=== PATIENT | male | born 1950 | race Caucasian/White ===

== ENCOUNTER 2018-08-23 05:56 | Inpatient (IN) ==
[2018-08-23 06:30] LABS: Basophils # 0.1 10*3/uL (0.0-0.2); Basophils % 0.5 % (0.0-0.8); Eosinophils # 0.4 10*3/uL (0.0-0.87); Eosinophils % 3.4 % (0.00-10.9); Hematocrit 28.5 VOL% (42.0-52.0); Hemoglobin 9.2 GM/DL (14.0-18.0); Immature Granulocytes % 1.2 %; Immature Granulocytes Absolute 0.13 #; Lymphocytes # 1.3 10*3/uL (1.4-4.0); Lymphocytes % 12.9 % (21.2-54.2); Mean Corpuscular HGB Conc 32.3 GM/DL (32-36); Mean Corpuscular Hemoglobin 31 PG (27-34); Mean Corpuscular Volume 94.7 FL (87-102); Mean Platelet Volume 9.9 FL (9.6-12.0); Monocytes # 1.4 10*3/uL (0.11-0.8); Monocytes % 13.4 % (1.7-12.7); Neutrophils # 7.2 10*3/uL (1.4-7.4); Neutrophils % 68.6 % (38.7-73.9); Platelet Count 162 T/CUMM (130-400); Red Blood Count 3.01 MC/CUMM (3.8-5.5); White Blood Count 10.4 T/CUMM (4-12)
[2018-08-23 06:39] LABS: PT Patient Result 10.9 SECS
[2018-08-23 07:01] LABS: Bilirubin,Total 0.4 MG/DL (0.2-1.0); Calcium 9.3 MG/DL (8.5-10.1); Potassium 3.7 MMOL/L (3.5-5.1); Total Protein 6.6 G/DL (6.4-8.3)
[2018-08-23] MEDS ORDERED: ONDANSETRON 4 MG/2 ML VIAL IV PRN (07:46)
[2018-08-23] MEDS ORDERED: GLUCAGON 1 MG VIAL IM PRN (07:46)
[2018-08-23] MEDS ORDERED: DEXTROSE 50% 25 GM/50 ML VIAL IV PRN (07:46)
[2018-08-23] MEDS: ENOXAPARIN 80 MG/0.8 ML SYRINGE SUBCUT SCH (08:13)
[2018-08-23 09:10] LABS: Risk Ratio 6.18; Thyroid Stimulating Hormone 8.6 uIU/ml (0.358-3.74); VLDL CHOLESTEROL 53.6 MG/DL
[2018-08-23] MEDS ORDERED: NITROGLYCERIN SL 0.4 MG TABLET SL PRN (10:09)
[2018-08-23] MEDS: INSULIN REGULAR 100 UNIT/ML SUBCUT SCH ×3 (12:40→21:38)
[2018-08-23] MEDS: NITROGLYCERIN 2% OINT 1 INCH/GM PACK TOP SCH ×2 (13:43→17:10)
[2018-08-23] MEDS: MIDODRINE 2.5 MG TABLET PO SCH ×2 (15:51→21:41)
[2018-08-23] MEDS: INSULIN GLARGINE 100 UNIT/ML SUBCUT SCH (21:40)
[2018-08-23] MEDS: DOCUSATE SODIUM 100 MG CAPSULE PO SCH (21:41)
[2018-08-23] MEDS: GABAPENTIN 300 MG CAPSULE PO SCH ×2 (21:42)
[2018-08-23] MEDS: PANTOPRAZOLE 40 MG TABLET PO SCH (21:44)
[2018-08-23] MEDS: traZODone 50 MG TABLET PO SCH (21:44)
[2018-08-24] MEDS: NITROGLYCERIN 2% OINT 1 INCH/GM PACK TOP SCH ×4 (00:07→17:38)
[2018-08-24 04:04] LABS: Basophils % 0.4 % (0.0-0.8); Eosinophils # 0.3 10*3/uL (0.0-0.87); Eosinophils % 3.5 % (0.00-10.9); Immature Granulocytes % 0.8 %; Immature Granulocytes Absolute 0.08 #; Lymphocytes # 1.6 10*3/uL (1.4-4.0); Lymphocytes % 15.9 % (21.2-54.2); Mean Corpuscular HGB Conc 32.1 GM/DL (32-36); Mean Corpuscular Hemoglobin 30 PG (27-34); Mean Corpuscular Volume 93.6 FL (87-102); Mean Platelet Volume 10.7 FL (9.6-12.0); Monocytes # 1.1 10*3/uL (0.11-0.8); Monocytes % 11.6 % (1.7-12.7); Neutrophils # 6.6 10*3/uL (1.4-7.4); Neutrophils % 67.8 % (38.7-73.9); Platelet Count 159 T/CUMM (130-400); Red Blood Count 2.99 MC/CUMM (3.8-5.5); Red Cell Distribution Width 15.2 % (9.3-17.3); White Blood Count 9.7 T/CUMM (4-12)
[2018-08-24 04:20] LABS: Calcium 9.5 MG/DL (8.5-10.1); Osmolality,Calculated 303.1 MOS/KG (273-304); Potassium 3.8 MMOL/L (3.5-5.1)
[2018-08-24 04:22] LABS: % Iron Saturation 26.6 % (18-50)
[2018-08-24 04:23] LABS: Albumin 2.9 G/DL (3.4-5.0); Calcium 9.4 MG/DL (8.5-10.1); Osmolality,Calculated 305.8 MOS/KG (273-304); Potassium 3.9 MMOL/L (3.5-5.1)
[2018-08-24 04:29] LABS: Thyroid Stimulating Hormone 6.9 uIU/ml (0.358-3.74)
[2018-08-24] MEDS: INSULIN GLARGINE 100 UNIT/ML SUBCUT SCH ×2 (08:38→20:54)
[2018-08-24] MEDS: INSULIN REGULAR 100 UNIT/ML SUBCUT SCH ×4 (08:40→20:53)
[2018-08-24] MEDS: DOCUSATE SODIUM 100 MG CAPSULE PO SCH ×2 (08:43→20:54)
[2018-08-24] MEDS: PANTOPRAZOLE 40 MG TABLET PO SCH ×2 (08:44→20:56)
[2018-08-24] MEDS: GABAPENTIN 300 MG CAPSULE PO SCH ×2 (08:44→20:55)
[2018-08-24] MEDS ORDERED: MAGNESIUM SULF RIDER 2 GM in PREMIX 1 EACH IV PRN (09:04)
[2018-08-24] MEDS ORDERED: POTASSIUM CHLORIDE RIDER 10 MEQ in PREMIX 1 EACH IV PRN (09:04)
[2018-08-24] MEDS: MIDODRINE 2.5 MG TABLET PO SCH ×6 (10:19→23:32)
[2018-08-24] MEDS: ENOXAPARIN 80 MG/0.8 ML SYRINGE SUBCUT SCH (11:13)
[2018-08-24] MEDS: ASPIRIN EC 81 MG TABLET PO SCH (11:20)
[2018-08-24] MEDS: METOPROLOL TARTRATE 25 MG TABLET PO SCH ×2 (11:20→20:56)
[2018-08-24] MEDS: SEVELAMER CARBONATE 800 MG TABLET PO SCH ×2 (13:36→17:32)
[2018-08-24 14:30] LABS: Parathyroid Hormone Intact 1274.1 PG/ML (18.4-80.1)
[2018-08-24] MEDS: ZALEPLON 5 MG CAPSULE PO PRN (20:54)
[2018-08-24] MEDS: traZODone 50 MG TABLET PO SCH (20:55)
[2018-08-24] MEDS: ROSUVASTATIN 20 MG TABLET PO SCH (20:56)
[2018-08-25] MEDS: NITROGLYCERIN 2% OINT 1 INCH/GM PACK TOP SCH ×4 (01:48→18:40)
[2018-08-25] MEDS: traMADol 50 MG TABLET PO PRN (03:44)
[2018-08-25 05:11] LABS: Calcium 9.5 MG/DL (8.5-10.1); Osmolality,Calculated 300.2 MOS/KG (273-304); Potassium 3.6 MMOL/L (3.5-5.1)
[2018-08-25 05:15] LABS: Calcium 10.1 MG/DL (8.5-10.1); Osmolality,Calculated 298.4 MOS/KG (273-304); Potassium 3.4 MMOL/L (3.5-5.1)
[2018-08-25] MEDS ORDERED: POTASSIUM CHLORIDE 20 MEQ TABLET PO ONE (05:54)
[2018-08-25 06:22] LABS: Basophils # 0.1 10*3/uL (0.0-0.2); Basophils % 0.5 % (0.0-0.8); Eosinophils # 0.4 10*3/uL (0.0-0.87); Eosinophils % 3.5 % (0.00-10.9); Hematocrit 29.8 VOL% (42.0-52.0); Hemoglobin 9.6 GM/DL (14.0-18.0); Immature Granulocytes % 1.4 %; Immature Granulocytes Absolute 0.16 #; Lymphocytes # 1.9 10*3/uL (1.4-4.0); Lymphocytes % 16.4 % (21.2-54.2); Mean Corpuscular HGB Conc 32.2 GM/DL (32-36); Mean Corpuscular Hemoglobin 30 PG (27-34); Mean Platelet Volume 11.2 FL (9.6-12.0); Monocytes # 1.5 10*3/uL (0.11-0.8); Monocytes % 12.9 % (1.7-12.7); Neutrophils # 7.4 10*3/uL (1.4-7.4); Neutrophils % 65.3 % (38.7-73.9); Platelet Count 187 T/CUMM (130-400); Red Blood Count 3.17 MC/CUMM (3.8-5.5); Red Cell Distribution Width 15.4 % (9.3-17.3); White Blood Count 11.4 T/CUMM (4-12)
[2018-08-25] MEDS: INSULIN REGULAR 100 UNIT/ML SUBCUT SCH ×3 (10:13→18:33)
[2018-08-25] MEDS: INSULIN GLARGINE 100 UNIT/ML SUBCUT SCH (10:14)
[2018-08-25] MEDS: SEVELAMER CARBONATE 800 MG TABLET PO SCH ×3 (11:29→18:27)
[2018-08-25] MEDS: PANTOPRAZOLE 40 MG TABLET PO SCH (11:29)
[2018-08-25] MEDS: ASPIRIN EC 81 MG TABLET PO SCH (11:30)
[2018-08-25] MEDS: MIDODRINE 2.5 MG TABLET PO SCH ×2 (11:30→14:40)
[2018-08-25] MEDS: ENOXAPARIN 80 MG/0.8 ML SYRINGE SUBCUT SCH (11:30)
[2018-08-25] MEDS: DOCUSATE SODIUM 100 MG CAPSULE PO SCH (11:30)
[2018-08-25] MEDS: METOPROLOL TARTRATE 25 MG TABLET PO SCH (11:38)
[2018-08-25] MEDS ORDERED: LIDOCAINE 1% 20 ML VIAL ONE (11:44)
[2018-08-25] MEDS ORDERED: DIAZEPAM 5 MG TABLET PO ONE (12:00)
[2018-08-25] MEDS ORDERED: diphenhydrAMINE CAP 25 MG CAPSULE PO ONE (12:00)
[2018-08-25] MEDS ORDERED: fentaNYL 100 MCG/2 ML VIAL ONE (12:58)
[2018-08-25] MEDS ORDERED: MIDAZOLAM 2 MG/2 ML VIAL ONE (12:58)
[2018-08-25] MEDS ORDERED: methylPREDNISolone SOD SUC 125 MG/2 ML VIAL ONE (13:03)
[2018-08-25] MEDS ORDERED: PROMETHAZINE 25 MG/1 ML VIAL ONE (13:38)
[2018-08-25] MEDS ORDERED: TIROFIBAN 5,000 MCG/100 ML PREMIX IV ONE (13:41)
[2018-08-25] MEDS: TIROFIBAN 5,000 MCG/100 ML PREMIX IV SCH (13:49)
[2018-08-25] MEDS ORDERED: TICAGRELOR 90 MG TABLET ONE (14:25)
[2018-08-25] MEDS ORDERED: DIGOXIN 0.5 MG/2 ML AMP ONE (14:48)
[2018-08-25] MEDS ORDERED: DIGOXIN 0.5 MG/2 ML AMP IV ONE (14:58)
[2018-08-25] MEDS ORDERED: AMIODARONE INJ 150 MG in DEXTROSE 5% 100 ML IV ONE (14:58)
[2018-08-25] MEDS ORDERED: AMIODARONE 150 MG/3 ML VIAL ONE (14:59)
[2018-08-25] MEDS ORDERED: SODIUM CHLORIDE 0.9% 1,000 ML IV SCH (15:00)
[2018-08-25] MEDS ORDERED: AMIODARONE INJ 450 MG in DEXTROSE 5% 241 ML IV SCH ×2 (15:00→21:00)
[2018-08-25] MEDS: ZINC OXIDE 16% PASTE 57 GM TUBE TOP SCH (18:21)
[2018-08-25] MEDS: COLLAGENASE OINT 30 GM TUBE TOP SCH (18:22)
[2018-08-25] MEDS ORDERED: ALBUTEROL/IPRATROPIUM 3 ML NEB RESP TX PRN (20:29)
[2018-08-25 20:50] LABS: ABG Base Excess -4.3 MMOL/L (-2.5-2.5); ABG Oxygen Saturation 92.4 % (95-100); ABG PCO2 28.8 MM HG (35-48); ABG PH 7.438 (7.35-7.45); ABG PO2 68.4 MM HG (80-95); ABG TCO2 19.9 MMOL/L (23-27); Allen Test Positive; Pt O2 Delivery Device CPAP
[2018-08-26] MEDS: ROSUVASTATIN 20 MG TABLET PO SCH ×2 (00:14→21:15)
[2018-08-26] MEDS: traZODone 50 MG TABLET PO SCH ×2 (00:15→21:15)
[2018-08-26] MEDS: DOCUSATE SODIUM 100 MG CAPSULE PO SCH ×3 (00:15→21:16)
[2018-08-26] MEDS: PANTOPRAZOLE 40 MG TABLET PO SCH ×3 (00:15→21:17)
[2018-08-26] MEDS: GABAPENTIN 300 MG CAPSULE PO SCH ×2 (00:15→21:17)
[2018-08-26] MEDS: ZINC OXIDE 16% PASTE 57 GM TUBE TOP SCH ×3 (00:17→21:14)
[2018-08-26] MEDS: INSULIN GLARGINE 100 UNIT/ML SUBCUT SCH ×3 (00:18→21:14)
[2018-08-26] MEDS: NITROGLYCERIN 2% OINT 1 INCH/GM PACK TOP SCH ×4 (00:20→17:34)
[2018-08-26] MEDS: MIDODRINE 2.5 MG TABLET PO SCH ×4 (00:22→21:31)
[2018-08-26] MEDS: METOPROLOL TARTRATE 25 MG TABLET PO SCH ×3 (00:22→21:33)
[2018-08-26] MEDS: INSULIN REGULAR 100 UNIT/ML SUBCUT SCH ×5 (00:31→21:14)
[2018-08-26] MEDS: COLLAGENASE OINT 30 GM TUBE TOP SCH ×2 (04:18→16:00)
[2018-08-26 04:21] LABS: Basophils % 0.2 % (0.0-0.8); Eosinophils # 0.2 10*3/uL (0.0-0.87); Eosinophils % 1.2 % (0.00-10.9); Hematocrit 24.4 VOL% (42.0-52.0); Hemoglobin 7.7 GM/DL (14.0-18.0); Immature Granulocytes % 0.9 %; Immature Granulocytes Absolute 0.14 #; Lymphocytes # 1.4 10*3/uL (1.4-4.0); Mean Corpuscular HGB Conc 31.6 GM/DL (32-36); Mean Corpuscular Hemoglobin 30 PG (27-34); Mean Corpuscular Volume 94.6 FL (87-102); Monocytes # 1.6 10*3/uL (0.11-0.8); Monocytes % 10.6 % (1.7-12.7); Neutrophils # 12.1 10*3/uL (1.4-7.4); Neutrophils % 78.1 % (38.7-73.9); Platelet Count 170 T/CUMM (130-400); Red Blood Count 2.58 MC/CUMM (3.8-5.5); Red Cell Distribution Width 15.7 % (9.3-17.3); White Blood Count 15.5 T/CUMM (4-12)
[2018-08-26 04:44] LABS: Calcium 9.1 MG/DL (8.5-10.1); Osmolality,Calculated 297.7 MOS/KG (273-304); Potassium 4.3 MMOL/L (3.5-5.1)
[2018-08-26 04:46] LABS: Albumin 2.8 G/DL (3.4-5.0); Calcium 8.9 MG/DL (8.5-10.1); Osmolality,Calculated 298.7 MOS/KG (273-304); Potassium 4.3 MMOL/L (3.5-5.1)
[2018-08-26 04:47] LABS: Troponin I 21.4 NG/ML (0.00-0.045)
[2018-08-26] MEDS: TIROFIBAN 5,000 MCG/100 ML PREMIX IV SCH (07:06)
[2018-08-26 07:46] LABS: Hematocrit 24.9 VOL% (42.0-52.0); Hemoglobin 7.8 GM/DL (14.0-18.0)
[2018-08-26 08:27] LABS: CKMB % 17.2 %
[2018-08-26 08:30] LABS: Troponin I 16.7 NG/ML (0.00-0.045)
[2018-08-26] MEDS: ASPIRIN EC 81 MG TABLET PO SCH (10:43)
[2018-08-26] MEDS: SEVELAMER CARBONATE 800 MG TABLET PO SCH ×3 (10:43→17:34)
[2018-08-26 10:49] LABS: ABG Base Excess -3.6 MMOL/L (-2.5-2.5); ABG HCO3 19.2 MMOL/L (20-26); ABG Oxygen Saturation 86.5 % (95-100); ABG PCO2 26.9 MM HG (35-48); ABG PH 7.471 (7.35-7.45); ABG PO2 53.6 MM HG (80-95); Allen Test Positive; Pt O2 Delivery Device Other
[2018-08-26] MEDS: [UNRECOGNIZED DRUG - OTHER] PO SCH ×4 (11:14→21:31)
[2018-08-26] MEDS: [UNRECOGNIZED DRUG - OTHER] PO SCH ×4 (11:14→21:31)
[2018-08-26] MEDS: [UNRECOGNIZED DRUG - OTHER] PO SCH ×2 (11:15→17:36)
[2018-08-26] MEDS: PRORENAL PO SCH ×2 (11:15→17:36)
[2018-08-26] MEDS: MONTELUKAST 10 MG TABLET PO SCH ×2 (12:47→21:15)
[2018-08-26] MEDS: ALBUTEROL 1.25 MG/3 ML NEB RESP TX SCH ×2 (13:57→19:25)
[2018-08-26 14:35] LABS: ABG Base Excess -3.4 MMOL/L (-2.5-2.5); ABG HCO3 19.9 MMOL/L (20-26); ABG Oxygen Saturation 93.6 % (95-100); ABG PCO2 29.3 MM HG (35-48); ABG PO2 72.6 MM HG (80-95); ABG TCO2 20.8 MMOL/L (23-27)
[2018-08-27] MEDS: ALBUTEROL 1.25 MG/3 ML NEB RESP TX SCH ×4 (00:45→20:31)
[2018-08-27] MEDS: NITROGLYCERIN 2% OINT 1 INCH/GM PACK TOP SCH ×2 (00:46→06:10)
[2018-08-27] MEDS: ZALEPLON 5 MG CAPSULE PO PRN ×2 (03:45→22:01)
[2018-08-27 05:00] LABS: Basophils % 0.1 % (0.0-0.8); Eosinophils # 0.2 10*3/uL (0.0-0.87); Eosinophils % 1.7 % (0.00-10.9); Hematocrit 23.2 VOL% (42.0-52.0); Hemoglobin 7.3 GM/DL (14.0-18.0); Immature Granulocytes % 0.9 %; Immature Granulocytes Absolute 0.11 #; Lymphocytes # 1.1 10*3/uL (1.4-4.0); Lymphocytes % 9.2 % (21.2-54.2); Mean Corpuscular HGB Conc 31.5 GM/DL (32-36); Mean Corpuscular Hemoglobin 30 PG (27-34); Mean Corpuscular Volume 95.1 FL (87-102); Mean Platelet Volume 11.4 FL (9.6-12.0); Monocytes # 1.3 10*3/uL (0.11-0.8); Monocytes % 10.8 % (1.7-12.7); Neutrophils # 9.1 10*3/uL (1.4-7.4); Neutrophils % 77.3 % (38.7-73.9); Platelet Count 148 T/CUMM (130-400); Red Blood Count 2.44 MC/CUMM (3.8-5.5); White Blood Count 11.7 T/CUMM (4-12)
[2018-08-27 05:15] LABS: Calcium 9.3 MG/DL (8.5-10.1); Osmolality,Calculated 304.7 MOS/KG (273-304); Potassium 4.1 MMOL/L (3.5-5.1)
[2018-08-27] MEDS ORDERED: SODIUM CHLORIDE 0.9% 1,000 ML IV PRN (07:31)
[2018-08-27] MEDS ORDERED: MAGNESIUM SULF RIDER 4 GM in PREMIX 1 EACH IV PRN (08:17)
[2018-08-27] MEDS ORDERED: MAGNESIUM SULF RIDER 2 GM in PREMIX 1 EACH IV PRN (08:17)
[2018-08-27] MEDS: METOPROLOL TARTRATE 25 MG TABLET PO SCH ×2 (09:30→22:01)
[2018-08-27] MEDS: ASPIRIN EC 81 MG TABLET PO SCH (09:30)
[2018-08-27] MEDS: DOCUSATE SODIUM 100 MG CAPSULE PO SCH ×2 (09:30→22:00)
[2018-08-27] MEDS: ZINC OXIDE 16% PASTE 57 GM TUBE TOP SCH ×2 (09:30→22:02)
[2018-08-27] MEDS: MIDODRINE 2.5 MG TABLET PO SCH ×3 (09:30→22:03)
[2018-08-27] MEDS: SEVELAMER CARBONATE 800 MG TABLET PO SCH ×3 (09:30→17:56)
[2018-08-27] MEDS: INSULIN GLARGINE 100 UNIT/ML SUBCUT SCH ×2 (09:30→22:03)
[2018-08-27] MEDS: [UNRECOGNIZED DRUG - OTHER] PO SCH ×3 (09:31→22:04)
[2018-08-27] MEDS: PRORENAL PO SCH (09:31)
[2018-08-27] MEDS: [UNRECOGNIZED DRUG - OTHER] PO SCH (09:31)
[2018-08-27] MEDS: COLLAGENASE OINT 30 GM TUBE TOP SCH (09:31)
[2018-08-27] MEDS: MONTELUKAST 10 MG TABLET PO SCH ×2 (09:31→22:08)
[2018-08-27] MEDS: [UNRECOGNIZED DRUG - OTHER] PO SCH ×3 (09:31→22:03)
[2018-08-27] MEDS: INSULIN REGULAR 100 UNIT/ML SUBCUT SCH ×4 (09:31→22:02)
[2018-08-27] MEDS: PANTOPRAZOLE 40 MG TABLET PO SCH ×2 (09:31→22:03)
[2018-08-27] MEDS ORDERED: EPOETIN ALFA 10,000 UNIT/1 ML VIAL SUBCUT ONE (10:00)
[2018-08-27] MEDS: traMADol 50 MG TABLET PO PRN (10:54)
[2018-08-27] MEDS: CLOPIDOGREL 75 MG TABLET PO SCH (10:55)
[2018-08-27 14:05] LABS: Hematocrit 23.6 VOL% (42.0-52.0); Hemoglobin 7.7 GM/DL (14.0-18.0)
[2018-08-27] MEDS: ROSUVASTATIN 20 MG TABLET PO SCH (22:00)
[2018-08-27] MEDS: traZODone 50 MG TABLET PO SCH (22:00)
[2018-08-27] MEDS: GABAPENTIN 300 MG CAPSULE PO SCH (22:00)
[2018-08-28] MEDS: ALBUTEROL 1.25 MG/3 ML NEB RESP TX SCH ×5 (01:48→19:40)
[2018-08-28 03:49] LABS: ABG Base Excess -2.6 MMOL/L (-2.5-2.5); ABG HCO3 20.5 MMOL/L (20-26); ABG Oxygen Saturation 86.1 % (95-100); ABG PCO2 29.2 MM HG (35-48); ABG PH 7.465 (7.35-7.45); ABG PO2 54.1 MM HG (80-95); ABG TCO2 21.4 MMOL/L (23-27); Allen Test Positive; Pt O2 Delivery Device Other
[2018-08-28 04:51] LABS: Basophils % 0.2 % (0.0-0.8); Eosinophils # 0.3 10*3/uL (0.0-0.87); Eosinophils % 2.8 % (0.00-10.9); Hematocrit 24.3 VOL% (42.0-52.0); Hemoglobin 7.7 GM/DL (14.0-18.0); Immature Granulocytes % 0.6 %; Immature Granulocytes Absolute 0.06 #; Lymphocytes # 1.2 10*3/uL (1.4-4.0); Mean Corpuscular HGB Conc 31.7 GM/DL (32-36); Mean Corpuscular Hemoglobin 30 PG (27-34); Mean Corpuscular Volume 95.3 FL (87-102); Mean Platelet Volume 11.5 FL (9.6-12.0); Monocytes # 1.3 10*3/uL (0.11-0.8); Monocytes % 12.3 % (1.7-12.7); Neutrophils # 7.7 10*3/uL (1.4-7.4); Neutrophils % 73.1 % (38.7-73.9); Platelet Count 136 T/CUMM (130-400); Red Blood Count 2.55 MC/CUMM (3.8-5.5); Red Cell Distribution Width 15.9 % (9.3-17.3); White Blood Count 10.5 T/CUMM (4-12)
[2018-08-28 05:26] LABS: Osmolality,Calculated 298.1 MOS/KG (273-304); Potassium 4.3 MMOL/L (3.5-5.1)
[2018-08-28] MEDS: diphenhydrAMINE CAP 25 MG CAPSULE PO PRN ×2 (08:16→15:36)
[2018-08-28] MEDS: INSULIN REGULAR 100 UNIT/ML SUBCUT SCH ×4 (08:17→21:08)
[2018-08-28] MEDS: PANTOPRAZOLE 40 MG TABLET PO SCH ×2 (08:18→21:10)
[2018-08-28] MEDS: ZINC OXIDE 16% PASTE 57 GM TUBE TOP SCH (08:19)
[2018-08-28] MEDS: SEVELAMER CARBONATE 800 MG TABLET PO SCH ×3 (08:19→18:20)
[2018-08-28] MEDS: ASPIRIN EC 81 MG TABLET PO SCH (08:19)
[2018-08-28] MEDS: DOCUSATE SODIUM 100 MG CAPSULE PO SCH ×2 (08:19→21:10)
[2018-08-28] MEDS: [UNRECOGNIZED DRUG - OTHER] PO SCH ×3 (08:20→21:07)
[2018-08-28] MEDS: MONTELUKAST 10 MG TABLET PO SCH ×2 (08:20→21:10)
[2018-08-28] MEDS: CLOPIDOGREL 75 MG TABLET PO SCH (08:20)
[2018-08-28] MEDS: [UNRECOGNIZED DRUG - OTHER] PO SCH ×3 (08:20→21:08)
[2018-08-28] MEDS: MIDODRINE 2.5 MG TABLET PO SCH ×3 (08:20→21:09)
[2018-08-28] MEDS: INSULIN GLARGINE 100 UNIT/ML SUBCUT SCH (08:21)
[2018-08-28] MEDS: [UNRECOGNIZED DRUG - OTHER] PO SCH (08:21)
[2018-08-28] MEDS: PRORENAL PO SCH (08:21)
[2018-08-28] MEDS: METOPROLOL TARTRATE 25 MG TABLET PO SCH ×2 (08:22→21:11)
[2018-08-28 14:59] LABS: Ferritin 527.3 ng/ml (26-388)
[2018-08-28] MEDS ORDERED: INSULIN GLARGINE 100 UNIT/ML SUBCUT SCH (17:00)
[2018-08-28] MEDS: POLYETHYLENE GLYCOL POWDER 17 GM PACK PO SCH (18:17)
[2018-08-28] MEDS: methylPREDNISolone SOD SUC 40 MG/1 ML VIAL IV SCH (18:19)
[2018-08-28] MEDS: EPOETIN ALFA 10,000 UNIT/1 ML VIAL SUBCUT SCH (18:27)
[2018-08-28] MEDS: COLLAGENASE OINT 30 GM TUBE TOP SCH (18:28)
[2018-08-28] MEDS: ROSUVASTATIN 20 MG TABLET PO SCH (21:10)
[2018-08-28] MEDS: GABAPENTIN 300 MG CAPSULE PO SCH (21:11)
[2018-08-28] MEDS: traZODone 50 MG TABLET PO SCH (21:11)
[2018-08-29] MEDS: ALBUTEROL 1.25 MG/3 ML NEB RESP TX SCH ×3 (00:50→11:57)
[2018-08-29] MEDS: diphenhydrAMINE CAP 25 MG CAPSULE PO PRN (01:22)
[2018-08-29] MEDS: ZINC OXIDE 16% PASTE 57 GM TUBE TOP SCH ×3 (01:22→21:00)
[2018-08-29] MEDS: HydrOXYzine PAMOATE 25 MG CAPSULE PO PRN (02:03)
[2018-08-29] MEDS: methylPREDNISolone SOD SUC 40 MG/1 ML VIAL IV SCH (04:31)
[2018-08-29 06:00] LABS: Basophils % 0.2 % (0.0-0.8); Eosinophils % 0.3 % (0.00-10.9); Hemoglobin 8.4 GM/DL (14.0-18.0); Immature Granulocytes % 0.8 %; Immature Granulocytes Absolute 0.05 #; Lymphocytes # 0.5 10*3/uL (1.4-4.0); Lymphocytes % 8.5 % (21.2-54.2); Mean Corpuscular HGB Conc 32.3 GM/DL (32-36); Mean Corpuscular Hemoglobin 30 PG (27-34); Mean Corpuscular Volume 93.9 FL (87-102); Mean Platelet Volume 11.5 FL (9.6-12.0); Monocytes # 0.4 10*3/uL (0.11-0.8); Monocytes % 6.8 % (1.7-12.7); Neutrophils # 4.9 10*3/uL (1.4-7.4); Neutrophils % 83.4 % (38.7-73.9); Platelet Count 145 T/CUMM (130-400); Red Blood Count 2.77 MC/CUMM (3.8-5.5); Red Cell Distribution Width 15.8 % (9.3-17.3); White Blood Count 5.9 T/CUMM (4-12)
[2018-08-29 06:06] LABS: Calcium 9.5 MG/DL (8.5-10.1); Osmolality,Calculated 304.1 MOS/KG (273-304); Potassium 4.9 MMOL/L (3.5-5.1)
[2018-08-29] MEDS: ASPIRIN EC 81 MG TABLET PO SCH (09:27)
[2018-08-29] MEDS: MONTELUKAST 10 MG TABLET PO SCH ×2 (09:27→21:00)
[2018-08-29] MEDS: INSULIN GLARGINE 100 UNIT/ML SUBCUT SCH ×2 (09:28→23:43)
[2018-08-29] MEDS: MIDODRINE 2.5 MG TABLET PO SCH ×3 (09:28→23:44)
[2018-08-29] MEDS: SEVELAMER CARBONATE 800 MG TABLET PO SCH ×3 (09:28→17:51)
[2018-08-29] MEDS: METOPROLOL TARTRATE 25 MG TABLET PO SCH ×2 (09:28→21:00)
[2018-08-29] MEDS: INSULIN REGULAR 100 UNIT/ML SUBCUT SCH ×4 (09:29→21:00)
[2018-08-29] MEDS: PRORENAL PO SCH (09:30)
[2018-08-29] MEDS: [UNRECOGNIZED DRUG - OTHER] PO SCH ×3 (09:30→21:00)
[2018-08-29] MEDS: [UNRECOGNIZED DRUG - OTHER] PO SCH (09:30)
[2018-08-29] MEDS: [UNRECOGNIZED DRUG - OTHER] PO SCH ×3 (09:30→21:00)
[2018-08-29] MEDS: POLYETHYLENE GLYCOL POWDER 17 GM PACK PO SCH (09:30)
[2018-08-29] MEDS: DOCUSATE SODIUM 100 MG CAPSULE PO SCH ×2 (09:30→21:00)
[2018-08-29] MEDS: PANTOPRAZOLE 40 MG TABLET PO SCH ×2 (09:31→21:00)
[2018-08-29] MEDS: CLOPIDOGREL 75 MG TABLET PO SCH (09:31)
[2018-08-29] MEDS: COLLAGENASE OINT 30 GM TUBE TOP SCH (10:00)
[2018-08-29] MEDS ORDERED: INSULIN REGULAR 100 UNIT/ML IV ONE (15:03)
[2018-08-29] MEDS: ROSUVASTATIN 20 MG TABLET PO SCH (21:00)
[2018-08-29] MEDS: traZODone 50 MG TABLET PO SCH (21:00)
[2018-08-29] MEDS: GABAPENTIN 300 MG CAPSULE PO SCH (21:00)
[2018-08-30] MEDS: MIDODRINE 2.5 MG TABLET PO SCH ×4 (04:00→21:30)
[2018-08-30 04:24] LABS: Basophils % 0.1 % (0.0-0.8); Eosinophils # 0.3 10*3/uL (0.0-0.87); Eosinophils % 2.2 % (0.00-10.9); Hematocrit 27.1 VOL% (42.0-52.0); Hemoglobin 8.7 GM/DL (14.0-18.0); Immature Granulocytes % 0.5 %; Immature Granulocytes Absolute 0.07 #; Lymphocytes # 1.8 10*3/uL (1.4-4.0); Lymphocytes % 13.2 % (21.2-54.2); Mean Corpuscular HGB Conc 32.1 GM/DL (32-36); Mean Corpuscular Hemoglobin 30 PG (27-34); Mean Corpuscular Volume 94.1 FL (87-102); Mean Platelet Volume 11.6 FL (9.6-12.0); Monocytes # 1.6 10*3/uL (0.11-0.8); Monocytes % 12.2 % (1.7-12.7); Neutrophils # 9.6 10*3/uL (1.4-7.4); Neutrophils % 71.8 % (38.7-73.9); Platelet Count 192 T/CUMM (130-400); Red Blood Count 2.88 MC/CUMM (3.8-5.5); Red Cell Distribution Width 15.8 % (9.3-17.3); White Blood Count 13.4 T/CUMM (4-12)
[2018-08-30 05:07] LABS: Calcium 9.8 MG/DL (8.5-10.1); Osmolality,Calculated 299.7 MOS/KG (273-304); Potassium 3.9 MMOL/L (3.5-5.1)
[2018-08-30] MEDS: ALBUTEROL 1.25 MG/3 ML NEB RESP TX SCH (06:58)
[2018-08-30] MEDS: INSULIN REGULAR 100 UNIT/ML SUBCUT SCH ×4 (08:24→22:31)
[2018-08-30] MEDS: INSULIN GLARGINE 100 UNIT/ML SUBCUT SCH ×2 (08:24→22:32)
[2018-08-30] MEDS: DOCUSATE SODIUM 100 MG CAPSULE PO SCH ×2 (08:25→21:20)
[2018-08-30] MEDS: PANTOPRAZOLE 40 MG TABLET PO SCH ×2 (08:25→21:30)
[2018-08-30] MEDS: SEVELAMER CARBONATE 800 MG TABLET PO SCH ×3 (08:25→17:07)
[2018-08-30] MEDS: MONTELUKAST 10 MG TABLET PO SCH ×2 (08:25→21:30)
[2018-08-30] MEDS: [UNRECOGNIZED DRUG - OTHER] PO SCH ×3 (08:25→21:20)
[2018-08-30] MEDS: CLOPIDOGREL 75 MG TABLET PO SCH (08:25)
[2018-08-30] MEDS: ASPIRIN EC 81 MG TABLET PO SCH (08:25)
[2018-08-30] MEDS: METOPROLOL TARTRATE 25 MG TABLET PO SCH ×2 (08:25→22:32)
[2018-08-30] MEDS: [UNRECOGNIZED DRUG - OTHER] PO SCH ×3 (08:26→21:30)
[2018-08-30] MEDS: PRORENAL PO SCH (08:26)
[2018-08-30] MEDS: [UNRECOGNIZED DRUG - OTHER] PO SCH (08:26)
[2018-08-30] MEDS: POLYETHYLENE GLYCOL POWDER 17 GM PACK PO SCH (08:26)
[2018-08-30] MEDS: ZINC OXIDE 16% PASTE 57 GM TUBE TOP SCH ×2 (08:27→22:30)
[2018-08-30] MEDS: COLLAGENASE OINT 30 GM TUBE TOP SCH (08:27)
[2018-08-30] MEDS ORDERED: guaiFENesin 200 MG/10 ML UDCUP PO PRN (11:38)
[2018-08-30] MEDS: ROSUVASTATIN 20 MG TABLET PO SCH (21:20)
[2018-08-30] MEDS: GABAPENTIN 300 MG CAPSULE PO SCH (21:30)
[2018-08-30] MEDS: CHOLESTYRAMINE 4 GM PACK PO SCH (21:30)
[2018-08-30] MEDS: traZODone 50 MG TABLET PO SCH (22:31)
[2018-08-31 05:03] LABS: Basophils # 0.1 10*3/uL (0.0-0.2); Basophils % 0.5 % (0.0-0.8); Eosinophils # 0.7 10*3/uL (0.0-0.87); Eosinophils % 4.9 % (0.00-10.9); Hemoglobin 9.7 GM/DL (14.0-18.0); Immature Granulocytes % 0.8 %; Immature Granulocytes Absolute 0.12 #; Lymphocytes # 1.9 10*3/uL (1.4-4.0); Lymphocytes % 12.9 % (21.2-54.2); Mean Corpuscular HGB Conc 31.3 GM/DL (32-36); Mean Corpuscular Hemoglobin 30 PG (27-34); Mean Corpuscular Volume 96.6 FL (87-102); Mean Platelet Volume 11.2 FL (9.6-12.0); Monocytes # 1.6 10*3/uL (0.11-0.8); NRBC # 0.02 10*3/uL; Neutrophils # 10.2 10*3/uL (1.4-7.4); Neutrophils % 69.9 % (38.7-73.9); Platelet Count 242 T/CUMM (130-400); Red Blood Count 3.21 MC/CUMM (3.8-5.5); White Blood Count 14.6 T/CUMM (4-12)
[2018-08-31 05:31] LABS: Calcium 9.8 MG/DL (8.5-10.1); Osmolality,Calculated 303.5 MOS/KG (273-304); Potassium 4.4 MMOL/L (3.5-5.1)
[2018-08-31] MEDS ORDERED: traMADol 50 MG TABLET PO ONE (06:30)
[2018-08-31] MEDS: SEVELAMER CARBONATE 800 MG TABLET PO SCH ×3 (09:10→17:19)
[2018-08-31] MEDS: CLOPIDOGREL 75 MG TABLET PO SCH (09:10)
[2018-08-31] MEDS: ASPIRIN EC 81 MG TABLET PO SCH (09:10)
[2018-08-31] MEDS: MONTELUKAST 10 MG TABLET PO SCH ×2 (09:10→22:13)
[2018-08-31] MEDS: MIDODRINE 2.5 MG TABLET PO SCH ×4 (09:10→22:12)
[2018-08-31] MEDS: PANTOPRAZOLE 40 MG TABLET PO SCH ×2 (09:10→22:12)
[2018-08-31] MEDS: DOCUSATE SODIUM 100 MG CAPSULE PO SCH ×2 (09:11→22:04)
[2018-08-31] MEDS: METOPROLOL TARTRATE 25 MG TABLET PO SCH ×2 (09:11→22:11)
[2018-08-31] MEDS: POLYETHYLENE GLYCOL POWDER 17 GM PACK PO SCH (09:11)
[2018-08-31] MEDS: INSULIN REGULAR 100 UNIT/ML SUBCUT SCH ×4 (09:15→22:06)
[2018-08-31] MEDS: INSULIN GLARGINE 100 UNIT/ML SUBCUT SCH ×2 (09:19→22:11)
[2018-08-31] MEDS: PRORENAL PO SCH (10:26)
[2018-08-31] MEDS: [UNRECOGNIZED DRUG - OTHER] PO SCH (10:26)
[2018-08-31] MEDS: DICLOFENAC 1.3% PATCH 5/PACK TRANSDERM SCH (10:51)
[2018-08-31] MEDS: [UNRECOGNIZED DRUG - OTHER] PO SCH ×3 (10:54→22:12)
[2018-08-31] MEDS: [UNRECOGNIZED DRUG - OTHER] PO SCH ×3 (10:54→22:13)
[2018-08-31] MEDS: COLLAGENASE OINT 30 GM TUBE TOP SCH (10:55)
[2018-08-31] MEDS: EPOETIN ALFA 10,000 UNIT/1 ML VIAL SUBCUT SCH (11:29)
[2018-08-31] MEDS: ZINC OXIDE 16% PASTE 57 GM TUBE TOP SCH ×2 (15:37→22:04)
[2018-08-31] MEDS: ROSUVASTATIN 20 MG TABLET PO SCH (21:00)
[2018-08-31] MEDS: traZODone 50 MG TABLET PO SCH (21:00)
[2018-08-31] MEDS: GABAPENTIN 300 MG CAPSULE PO SCH (22:11)
[2018-08-31] MEDS: CHOLESTYRAMINE 4 GM PACK PO SCH (22:13)
[2018-09-01] MEDS: DICLOFENAC 1.3% PATCH 5/PACK TRANSDERM SCH ×3 (00:56→21:23)
[2018-09-01] MEDS ORDERED: traMADol 50 MG TABLET PO ONE (05:14)
[2018-09-01 05:37] LABS: Basophils % 0.3 % (0.0-0.8); Eosinophils # 0.6 10*3/uL (0.0-0.87); Eosinophils % 4.8 % (0.00-10.9); Hematocrit 26.8 VOL% (42.0-52.0); Hemoglobin 8.6 GM/DL (14.0-18.0); Immature Granulocytes % 1.1 %; Immature Granulocytes Absolute 0.14 #; Lymphocytes # 2.2 10*3/uL (1.4-4.0); Lymphocytes % 16.6 % (21.2-54.2); Mean Corpuscular HGB Conc 32.1 GM/DL (32-36); Mean Corpuscular Hemoglobin 30 PG (27-34); Mean Corpuscular Volume 94.4 FL (87-102); Mean Platelet Volume 11.4 FL (9.6-12.0); Monocytes # 1.7 10*3/uL (0.11-0.8); Monocytes % 12.6 % (1.7-12.7); NRBC # 0.04 10*3/uL; Neutrophils # 8.5 10*3/uL (1.4-7.4); Neutrophils % 64.6 % (38.7-73.9); Platelet Count 205 T/CUMM (130-400); Red Blood Count 2.84 MC/CUMM (3.8-5.5); Red Cell Distribution Width 15.9 % (9.3-17.3); White Blood Count 13.2 T/CUMM (4-12)
[2018-09-01 05:42] LABS: Calcium 9.7 MG/DL (8.5-10.1); Osmolality,Calculated 299.5 MOS/KG (273-304); Potassium 4.1 MMOL/L (3.5-5.1)
[2018-09-01 05:43] LABS: Calcium 9.5 MG/DL (8.5-10.1); Osmolality,Calculated 301.5 MOS/KG (273-304); Potassium 4.1 MMOL/L (3.5-5.1)
[2018-09-01] MEDS: MONTELUKAST 10 MG TABLET PO SCH ×2 (09:20→21:16)
[2018-09-01] MEDS: MIDODRINE 2.5 MG TABLET PO SCH (09:20)
[2018-09-01] MEDS: SEVELAMER CARBONATE 800 MG TABLET PO SCH ×3 (09:20→18:12)
[2018-09-01] MEDS: CLOPIDOGREL 75 MG TABLET PO SCH (09:20)
[2018-09-01] MEDS: PANTOPRAZOLE 40 MG TABLET PO SCH ×2 (09:20→21:16)
[2018-09-01] MEDS: DOCUSATE SODIUM 100 MG CAPSULE PO SCH ×2 (09:22→21:15)
[2018-09-01] MEDS: POLYETHYLENE GLYCOL POWDER 17 GM PACK PO SCH (09:23)
[2018-09-01] MEDS: METOPROLOL TARTRATE 25 MG TABLET PO SCH ×2 (09:23→22:36)
[2018-09-01] MEDS: INSULIN REGULAR 100 UNIT/ML SUBCUT SCH ×4 (09:23→21:24)
[2018-09-01] MEDS: INSULIN GLARGINE 100 UNIT/ML SUBCUT SCH ×2 (09:24→21:25)
[2018-09-01] MEDS: PRORENAL PO SCH (09:26)
[2018-09-01] MEDS: [UNRECOGNIZED DRUG - OTHER] PO SCH (09:26)
[2018-09-01] MEDS: [UNRECOGNIZED DRUG - OTHER] PO SCH ×3 (09:27→21:16)
[2018-09-01] MEDS: [UNRECOGNIZED DRUG - OTHER] PO SCH ×3 (09:27→21:17)
[2018-09-01] MEDS: ASPIRIN EC 81 MG TABLET PO SCH (09:28)
[2018-09-01] MEDS: traMADol 50 MG TABLET PO PRN (09:47)
[2018-09-01] MEDS: ZINC OXIDE 16% PASTE 57 GM TUBE TOP SCH ×2 (10:36→21:23)
[2018-09-01] MEDS: COLLAGENASE OINT 30 GM TUBE TOP SCH (10:39)
[2018-09-01] MEDS: PIPERACILLIN/TAZOBACTAM 3,375 MG in SODIUM CHLORIDE 0.9% 100 ML IV SCH ×2 (11:47→23:27)
[2018-09-01 13:14] LABS: ABG Base Excess -3.9 MMOL/L (-2.5-2.5); ABG HCO3 21.1 MMOL/L (20-26); ABG Oxygen Saturation 93.5 % (95-100); ABG PCO2 30.7 MM HG (35-48); ABG PH 7.417 (7.35-7.45); ABG PO2 68.6 MM HG (80-95)
[2018-09-01 13:42] LABS: Troponin I 0.325 NG/ML (0.00-0.045)
[2018-09-01] MEDS: MIDODRINE 5 MG TABLET PO SCH ×2 (14:31→21:16)
[2018-09-01] MEDS: ROSUVASTATIN 20 MG TABLET PO SCH (21:14)
[2018-09-01] MEDS: CHOLESTYRAMINE 4 GM PACK PO SCH (21:14)
[2018-09-01] MEDS: traZODone 50 MG TABLET PO SCH (21:15)
[2018-09-01] MEDS: GABAPENTIN 300 MG CAPSULE PO SCH (21:16)
[2018-09-02 05:30] LABS: Basophils % 0.3 % (0.0-0.8); Eosinophils # 0.6 10*3/uL (0.0-0.87); Eosinophils % 6.4 % (0.00-10.9); Hematocrit 27.5 VOL% (42.0-52.0); Hemoglobin 8.6 GM/DL (14.0-18.0); Immature Granulocytes % 1.6 %; Immature Granulocytes Absolute 0.15 #; Lymphocytes # 1.3 10*3/uL (1.4-4.0); Lymphocytes % 13.9 % (21.2-54.2); Mean Corpuscular HGB Conc 31.3 GM/DL (32-36); Mean Corpuscular Hemoglobin 30 PG (27-34); Mean Corpuscular Volume 95.8 FL (87-102); Mean Platelet Volume 11.2 FL (9.6-12.0); Monocytes # 1.1 10*3/uL (0.11-0.8); Monocytes % 11.6 % (1.7-12.7); NRBC # 0.03 10*3/uL; Neutrophils # 6.2 10*3/uL (1.4-7.4); Neutrophils % 66.2 % (38.7-73.9); Platelet Count 185 T/CUMM (130-400); Red Blood Count 2.87 MC/CUMM (3.8-5.5); Red Cell Distribution Width 16.1 % (9.3-17.3); White Blood Count 9.4 T/CUMM (4-12)
[2018-09-02 05:41] LABS: Calcium 9.2 MG/DL (8.5-10.1); Osmolality,Calculated 304.5 MOS/KG (273-304)
[2018-09-02 08:44] LABS: ABG HCO3 23.5 MMOL/L (20-26); ABG Oxygen Saturation 89.5 % (95-100); ABG PCO2 39.9 MM HG (35-48); ABG PH 7.386 (7.35-7.45); ABG PO2 60.5 MM HG (80-95); ABG TCO2 22.3 MMOL/L (23-27)
[2018-09-02] MEDS ORDERED: LIDOCAINE 100 MG/5 ML SYRINGE ONE (09:00)
[2018-09-02] MEDS: MIDODRINE 5 MG TABLET PO SCH ×3 (09:58→21:26)
[2018-09-02] MEDS: SEVELAMER CARBONATE 800 MG TABLET PO SCH ×3 (09:58→16:58)
[2018-09-02] MEDS: CLOPIDOGREL 75 MG TABLET PO SCH (09:58)
[2018-09-02] MEDS: MONTELUKAST 10 MG TABLET PO SCH ×2 (09:58→21:27)
[2018-09-02] MEDS: PANTOPRAZOLE 40 MG TABLET PO SCH ×2 (09:58→21:27)
[2018-09-02] MEDS: DOCUSATE SODIUM 100 MG CAPSULE PO SCH ×2 (09:58→21:23)
[2018-09-02] MEDS: METOPROLOL TARTRATE 25 MG TABLET PO SCH ×2 (09:58→21:25)
[2018-09-02] MEDS: ASPIRIN EC 81 MG TABLET PO SCH (09:58)
[2018-09-02] MEDS: POLYETHYLENE GLYCOL POWDER 17 GM PACK PO SCH (09:58)
[2018-09-02] MEDS: INSULIN REGULAR 100 UNIT/ML SUBCUT SCH ×4 (09:59→21:46)
[2018-09-02] MEDS: EPOETIN ALFA 10,000 UNIT/1 ML VIAL SUBCUT SCH (09:59)
[2018-09-02] MEDS: ZINC OXIDE 16% PASTE 57 GM TUBE TOP SCH ×2 (09:59→21:50)
[2018-09-02] MEDS: INSULIN GLARGINE 100 UNIT/ML SUBCUT SCH ×2 (09:59→21:47)
[2018-09-02] MEDS: [UNRECOGNIZED DRUG - OTHER] PO SCH ×3 (10:00→21:29)
[2018-09-02] MEDS: PRORENAL PO SCH (10:00)
[2018-09-02] MEDS: [UNRECOGNIZED DRUG - OTHER] PO SCH (10:00)
[2018-09-02] MEDS: [UNRECOGNIZED DRUG - OTHER] PO SCH ×3 (10:01→21:32)
[2018-09-02] MEDS: COLLAGENASE OINT 30 GM TUBE TOP SCH (10:03)
[2018-09-02] MEDS: PIPERACILLIN/TAZOBACTAM 3,375 MG in SODIUM CHLORIDE 0.9% 100 ML IV SCH ×2 (10:49→23:05)
[2018-09-02] MEDS: traMADol 50 MG TABLET PO PRN ×2 (11:06→19:45)
[2018-09-02] MEDS: DICLOFENAC 1.3% PATCH 5/PACK TRANSDERM SCH ×2 (11:07→21:51)
[2018-09-02] MEDS: traZODone 50 MG TABLET PO SCH (21:24)
[2018-09-02] MEDS: ROSUVASTATIN 20 MG TABLET PO SCH (21:24)
[2018-09-02] MEDS: GABAPENTIN 300 MG CAPSULE PO SCH (21:26)
[2018-09-02] MEDS: CHOLESTYRAMINE 4 GM PACK PO SCH (21:32)
[2018-09-03 04:55] LABS: ABG Base Excess -2.1 MMOL/L (-2.5-2.5); ABG HCO3 22.8 MMOL/L (20-26); ABG Oxygen Saturation 92.8 % (95-100); ABG PCO2 39.6 MM HG (35-48); ABG PH 7.379 (7.35-7.45); ABG PO2 71.2 MM HG (80-95); ABG TCO2 24.1 MMOL/L (23-27)
[2018-09-03 05:36] LABS: Basophils # 0.1 10*3/uL (0.0-0.2); Basophils % 0.5 % (0.0-0.8); Eosinophils # 0.7 10*3/uL (0.0-0.87); Eosinophils % 6.1 % (0.00-10.9); Hematocrit 26.9 VOL% (42.0-52.0); Hemoglobin 8.3 GM/DL (14.0-18.0); Immature Granulocytes % 1.6 %; Immature Granulocytes Absolute 0.18 #; Lymphocytes # 1.3 10*3/uL (1.4-4.0); Lymphocytes % 11.8 % (21.2-54.2); Mean Corpuscular HGB Conc 30.9 GM/DL (32-36); Mean Corpuscular Hemoglobin 30 PG (27-34); Mean Corpuscular Volume 96.4 FL (87-102); Mean Platelet Volume 10.8 FL (9.6-12.0); Monocytes # 1.4 10*3/uL (0.11-0.8); Monocytes % 12.9 % (1.7-12.7); NRBC # 0.02 10*3/uL; Neutrophils # 7.4 10*3/uL (1.4-7.4); Neutrophils % 67.1 % (38.7-73.9); Platelet Count 195 T/CUMM (130-400); Red Blood Count 2.79 MC/CUMM (3.8-5.5); Red Cell Distribution Width 16.1 % (9.3-17.3); White Blood Count 11.1 T/CUMM (4-12)
[2018-09-03 05:57] LABS: Calcium 9.1 MG/DL (8.5-10.1); Osmolality,Calculated 303.4 MOS/KG (273-304); Potassium 4.6 MMOL/L (3.5-5.1)
[2018-09-03 05:59] LABS: Albumin 2.4 G/DL (3.4-5.0); Calcium 8.8 MG/DL (8.5-10.1); Osmolality,Calculated 301.5 MOS/KG (273-304); Potassium 4.7 MMOL/L (3.5-5.1)
[2018-09-03] MEDS: [UNRECOGNIZED DRUG - OTHER] PO SCH (08:17)
[2018-09-03] MEDS: ASPIRIN EC 81 MG TABLET PO SCH (08:17)
[2018-09-03] MEDS: PANTOPRAZOLE 40 MG TABLET PO SCH ×2 (08:17→20:25)
[2018-09-03] MEDS: [UNRECOGNIZED DRUG - OTHER] PO SCH ×3 (08:17→20:29)
[2018-09-03] MEDS: CLOPIDOGREL 75 MG TABLET PO SCH (08:17)
[2018-09-03] MEDS: SEVELAMER CARBONATE 800 MG TABLET PO SCH ×3 (08:17→17:43)
[2018-09-03] MEDS: METOPROLOL TARTRATE 25 MG TABLET PO SCH ×2 (08:17→20:24)
[2018-09-03] MEDS: PRORENAL PO SCH (08:17)
[2018-09-03] MEDS: MONTELUKAST 10 MG TABLET PO SCH ×2 (08:17→20:25)
[2018-09-03] MEDS: MIDODRINE 5 MG TABLET PO SCH ×3 (08:17→20:24)
[2018-09-03] MEDS: DOCUSATE SODIUM 100 MG CAPSULE PO SCH ×2 (08:17→20:25)
[2018-09-03] MEDS: ZINC OXIDE 16% PASTE 57 GM TUBE TOP SCH ×2 (08:18→20:30)
[2018-09-03] MEDS: INSULIN REGULAR 100 UNIT/ML SUBCUT SCH ×4 (08:18→20:29)
[2018-09-03] MEDS: INSULIN GLARGINE 100 UNIT/ML SUBCUT SCH ×2 (08:18→20:30)
[2018-09-03] MEDS: POLYETHYLENE GLYCOL POWDER 17 GM PACK PO SCH (08:18)
[2018-09-03] MEDS: DICLOFENAC 1.3% PATCH 5/PACK TRANSDERM SCH ×2 (08:18→20:26)
[2018-09-03] MEDS: [UNRECOGNIZED DRUG - OTHER] PO SCH ×3 (08:19→20:29)
[2018-09-03] MEDS: COLLAGENASE OINT 30 GM TUBE TOP SCH (08:19)
[2018-09-03] MEDS: PIPERACILLIN/TAZOBACTAM 3,375 MG in SODIUM CHLORIDE 0.9% 100 ML IV SCH ×2 (10:26→23:13)
[2018-09-03] MEDS ORDERED: DEXAMETHASONE 10 MG/1 ML VIAL IV ONE (14:00)
[2018-09-03] MEDS ORDERED: ROPIVACAINE 0.5% 30 ML VIAL NERVEBLOCK ONE (14:00)
[2018-09-03] MEDS: traMADol 50 MG TABLET PO PRN (14:24)
[2018-09-03] MEDS: ROSUVASTATIN 20 MG TABLET PO SCH (20:24)
[2018-09-03] MEDS: GABAPENTIN 300 MG CAPSULE PO SCH (20:24)
[2018-09-03] MEDS: traZODone 50 MG TABLET PO SCH (20:25)
[2018-09-03] MEDS: CHOLESTYRAMINE 4 GM PACK PO SCH (20:29)
[2018-09-04 04:13] LABS: ABG Base Excess -2.2 MMOL/L (-2.5-2.5); ABG HCO3 22.5 MMOL/L (20-26); ABG Oxygen Saturation 90.9 % (95-100); ABG PCO2 36.1 MM HG (35-48); ABG PH 7.397 (7.35-7.45); ABG TCO2 20.8 MMOL/L (23-27); Allen Test Positive; Pt O2 Delivery Device Other
[2018-09-04 05:45] LABS: Basophils % 0.2 % (0.0-0.8); Eosinophils % 0.2 % (0.00-10.9); Hematocrit 26.9 VOL% (42.0-52.0); Hemoglobin 8.4 GM/DL (14.0-18.0); Immature Granulocytes % 1.6 %; Immature Granulocytes Absolute 0.19 #; Lymphocytes # 0.8 10*3/uL (1.4-4.0); Lymphocytes % 6.4 % (21.2-54.2); Mean Corpuscular HGB Conc 31.2 GM/DL (32-36); Mean Corpuscular Hemoglobin 30 PG (27-34); Mean Corpuscular Volume 97.1 FL (87-102); Mean Platelet Volume 10.8 FL (9.6-12.0); Monocytes # 0.6 10*3/uL (0.11-0.8); Monocytes % 5.5 % (1.7-12.7); NRBC # 0.02 10*3/uL; Neutrophils # 10.1 10*3/uL (1.4-7.4); Neutrophils % 86.1 % (38.7-73.9); Platelet Count 198 T/CUMM (130-400); Red Blood Count 2.77 MC/CUMM (3.8-5.5); Red Cell Distribution Width 15.9 % (9.3-17.3); White Blood Count 11.7 T/CUMM (4-12)
[2018-09-04 06:08] LABS: Calcium 9.5 MG/DL (8.5-10.1); Osmolality,Calculated 305.7 MOS/KG (273-304); Potassium 5.1 MMOL/L (3.5-5.1)
[2018-09-04 06:09] LABS: Albumin 2.8 G/DL (3.4-5.0); Calcium 9.1 MG/DL (8.5-10.1); Osmolality,Calculated 308.5 MOS/KG (273-304); Potassium 5.2 MMOL/L (3.5-5.1)
[2018-09-04] MEDS: INSULIN REGULAR 100 UNIT/ML SUBCUT SCH ×4 (08:45→21:16)
[2018-09-04] MEDS: MONTELUKAST 10 MG TABLET PO SCH ×2 (08:46→21:15)
[2018-09-04] MEDS: INSULIN GLARGINE 100 UNIT/ML SUBCUT SCH ×2 (08:46→21:16)
[2018-09-04] MEDS: SEVELAMER CARBONATE 800 MG TABLET PO SCH ×3 (08:46→16:06)
[2018-09-04] MEDS: MIDODRINE 5 MG TABLET PO SCH ×3 (08:46→21:56)
[2018-09-04] MEDS: CLOPIDOGREL 75 MG TABLET PO SCH (08:46)
[2018-09-04] MEDS: PANTOPRAZOLE 40 MG TABLET PO SCH ×2 (08:46→21:15)
[2018-09-04] MEDS: DOCUSATE SODIUM 100 MG CAPSULE PO SCH ×2 (08:47→21:15)
[2018-09-04] MEDS: ASPIRIN EC 81 MG TABLET PO SCH (08:47)
[2018-09-04] MEDS: POLYETHYLENE GLYCOL POWDER 17 GM PACK PO SCH (08:47)
[2018-09-04] MEDS: METOPROLOL TARTRATE 25 MG TABLET PO SCH ×2 (08:47→21:15)
[2018-09-04] MEDS: [UNRECOGNIZED DRUG - OTHER] PO SCH (08:49)
[2018-09-04] MEDS: [UNRECOGNIZED DRUG - OTHER] PO SCH ×3 (08:49→21:53)
[2018-09-04] MEDS: [UNRECOGNIZED DRUG - OTHER] PO SCH ×3 (08:49→21:53)
[2018-09-04] MEDS: PRORENAL PO SCH (08:49)
[2018-09-04] MEDS: methylPREDNISolone SOD SUC 40 MG/1 ML VIAL IV SCH ×2 (11:05→21:58)
[2018-09-04] MEDS: DICLOFENAC 1.3% PATCH 5/PACK TRANSDERM SCH ×2 (11:06→21:25)
[2018-09-04] MEDS: EPOETIN ALFA 10,000 UNIT/1 ML VIAL SUBCUT SCH (11:08)
[2018-09-04] MEDS: ZINC OXIDE 16% PASTE 57 GM TUBE TOP SCH ×2 (11:09→21:25)
[2018-09-04] MEDS: COLLAGENASE OINT 30 GM TUBE TOP SCH (11:09)
[2018-09-04] MEDS ORDERED: SODIUM POLYSTYRENE SULFATE 15 GM/60 ML BOTTLE PO ONE (11:29)
[2018-09-04] MEDS: INSULIN LISPRO 100 UNIT/ML SUBCUT SCH ×3 (12:08→21:17)
[2018-09-04] MEDS: PIPERACILLIN/TAZOBACTAM 3,375 MG in SODIUM CHLORIDE 0.9% 100 ML IV SCH ×2 (12:11→23:57)
[2018-09-04] MEDS: ROSUVASTATIN 20 MG TABLET PO SCH (21:14)
[2018-09-04] MEDS: traZODone 50 MG TABLET PO SCH (21:15)
[2018-09-04] MEDS: GABAPENTIN 300 MG CAPSULE PO SCH (21:16)
[2018-09-04] MEDS: CHOLESTYRAMINE 4 GM PACK PO SCH (21:18)
[2018-09-05 03:13] LABS: ABG Base Excess -1.8 MMOL/L (-2.5-2.5); ABG HCO3 22.9 MMOL/L (20-26); ABG Oxygen Saturation 96.9 % (95-100); ABG PCO2 38.6 MM HG (35-48); ABG PH 7.392 (7.35-7.45); ABG PO2 97.4 MM HG (80-95); ABG TCO2 24.1 MMOL/L (23-27); Allen Test Positive
[2018-09-05 05:50] LABS: Basophils % 0.2 % (0.0-0.8); Eosinophils # 0.1 10*3/uL (0.0-0.87); Eosinophils % 0.4 % (0.00-10.9); Hematocrit 26.1 VOL% (42.0-52.0); Hemoglobin 8.3 GM/DL (14.0-18.0); Immature Granulocytes % 2.7 %; Immature Granulocytes Absolute 0.33 #; Lymphocytes # 0.8 10*3/uL (1.4-4.0); Lymphocytes % 6.8 % (21.2-54.2); Mean Corpuscular HGB Conc 31.8 GM/DL (32-36); Mean Corpuscular Hemoglobin 31 PG (27-34); Mean Platelet Volume 10.9 FL (9.6-12.0); Monocytes # 0.7 10*3/uL (0.11-0.8); Monocytes % 5.9 % (1.7-12.7); NRBC # 0.03 10*3/uL; Neutrophils # 10.1 10*3/uL (1.4-7.4); Platelet Count 186 T/CUMM (130-400); Red Blood Count 2.72 MC/CUMM (3.8-5.5); Red Cell Distribution Width 16.2 % (9.3-17.3); White Blood Count 12.1 T/CUMM (4-12)
[2018-09-05 06:02] LABS: Albumin 2.7 G/DL (3.4-5.0); Calcium 8.9 MG/DL (8.5-10.1); Osmolality,Calculated 312.2 MOS/KG (273-304)
[2018-09-05] MEDS: MIDODRINE 5 MG TABLET PO SCH ×3 (09:48→21:32)
[2018-09-05] MEDS: POLYETHYLENE GLYCOL POWDER 17 GM PACK PO SCH (09:48)
[2018-09-05] MEDS: DOCUSATE SODIUM 100 MG CAPSULE PO SCH ×2 (09:48→21:35)
[2018-09-05] MEDS: CLOPIDOGREL 75 MG TABLET PO SCH (09:49)
[2018-09-05] MEDS: ASPIRIN EC 81 MG TABLET PO SCH (09:49)
[2018-09-05] MEDS: MONTELUKAST 10 MG TABLET PO SCH ×2 (09:49→21:32)
[2018-09-05] MEDS: oxyCODONE/ACETAMINOPHEN 5-325 MG TABLET PO PRN (09:49)
[2018-09-05] MEDS: SEVELAMER CARBONATE 800 MG TABLET PO SCH ×3 (09:49→16:47)
[2018-09-05] MEDS: METOPROLOL TARTRATE 25 MG TABLET PO SCH ×2 (09:51→21:33)
[2018-09-05] MEDS: INSULIN REGULAR 100 UNIT/ML SUBCUT SCH ×4 (09:51→21:34)
[2018-09-05] MEDS: PANTOPRAZOLE 40 MG TABLET PO SCH ×2 (09:51→21:33)
[2018-09-05] MEDS: ZINC OXIDE 16% PASTE 57 GM TUBE TOP SCH ×2 (09:52→21:37)
[2018-09-05] MEDS: INSULIN LISPRO 100 UNIT/ML SUBCUT SCH ×4 (09:52→21:33)
[2018-09-05] MEDS: methylPREDNISolone SOD SUC 40 MG/1 ML VIAL IV SCH (09:58)
[2018-09-05] MEDS: COLLAGENASE OINT 30 GM TUBE TOP SCH (10:01)
[2018-09-05] MEDS: INSULIN GLARGINE 100 UNIT/ML SUBCUT SCH ×2 (10:06→21:34)
[2018-09-05] MEDS: DICLOFENAC 1.3% PATCH 5/PACK TRANSDERM SCH (10:07)
[2018-09-05] MEDS: [UNRECOGNIZED DRUG - OTHER] PO SCH ×3 (10:08→21:29)
[2018-09-05] MEDS: [UNRECOGNIZED DRUG - OTHER] PO SCH ×3 (10:08→21:30)
[2018-09-05] MEDS: [UNRECOGNIZED DRUG - OTHER] PO SCH (10:09)
[2018-09-05] MEDS: PRORENAL PO SCH (10:09)
[2018-09-05] MEDS: PIPERACILLIN/TAZOBACTAM 3,375 MG in SODIUM CHLORIDE 0.9% 100 ML IV SCH (10:19)
[2018-09-05] MEDS: NYSTATIN 500,000 UNIT/5 ML UDCUP SWISH/SWAL SCH ×3 (12:22→21:33)
[2018-09-05] MEDS: LIDOCAINE 5% PATCH TRANSDERM SCH (14:38)
[2018-09-05] MEDS: ROSUVASTATIN 20 MG TABLET PO SCH (21:32)
[2018-09-05] MEDS: GABAPENTIN 300 MG CAPSULE PO SCH (21:33)
[2018-09-05] MEDS: traZODone 50 MG TABLET PO SCH (21:36)
[2018-09-05] MEDS: CHOLESTYRAMINE 4 GM PACK PO SCH (21:37)
[2018-09-06] MEDS: diphenhydrAMINE CAP 25 MG CAPSULE PO PRN
[2018-09-06] MEDS: oxyCODONE/ACETAMINOPHEN 5-325 MG TABLET PO PRN ×3 (00:01→15:45)
[2018-09-06] MEDS: PIPERACILLIN/TAZOBACTAM 3,375 MG in SODIUM CHLORIDE 0.9% 100 ML IV SCH ×3 (00:02→23:30)
[2018-09-06] MEDS ORDERED: MELATONIN 3 MG TABLET PO ONE (02:10)
[2018-09-06 03:53] LABS: ABG Base Excess -0.1 MMOL/L (-2.5-2.5); ABG HCO3 24.3 MMOL/L (20-26); ABG Oxygen Saturation 98.2 % (95-100); ABG PCO2 41.3 MM HG (35-48); ABG PH 7.387 (7.35-7.45); Allen Test Positive
[2018-09-06 04:27] LABS: Basophils # 0.1 10*3/uL (0.0-0.2); Basophils % 0.4 % (0.0-0.8); Eosinophils # 0.2 10*3/uL (0.0-0.87); Eosinophils % 1.3 % (0.00-10.9); Hematocrit 26.1 VOL% (42.0-52.0); Hemoglobin 8.2 GM/DL (14.0-18.0); Immature Granulocytes Absolute 0.54 #; Lymphocytes # 1.7 10*3/uL (1.4-4.0); Mean Corpuscular HGB Conc 31.4 GM/DL (32-36); Mean Corpuscular Hemoglobin 30 PG (27-34); Mean Platelet Volume 10.4 FL (9.6-12.0); Monocytes # 1.9 10*3/uL (0.11-0.8); Monocytes % 14.1 % (1.7-12.7); NRBC # 0.11 10*3/uL; Neutrophils % 67.2 % (38.7-73.9); Platelet Count 189 T/CUMM (130-400); Red Blood Count 2.72 MC/CUMM (3.8-5.5); Red Cell Distribution Width 16.2 % (9.3-17.3); White Blood Count 13.4 T/CUMM (4-12)
[2018-09-06 04:40] LABS: Albumin 2.4 G/DL (3.4-5.0); Calcium 8.7 MG/DL (8.5-10.1); Potassium 3.4 MMOL/L (3.5-5.1)
[2018-09-06 05:14] LABS: Band Neutrophils 1 % (0-10); Eosinophils 2 % (0-10); Lymphocytes 12 % (20-55); Myelocytes 1 %; Nucleated Red Blood Cells 1 (0-5); Segmented Neutrophils 68 % (50-85); Total Cells Counted 100
[2018-09-06 05:17] LABS: Hypochromasia 1+; Platelet Estimate Normal; Polychromasia Few
[2018-09-06 05:18] LABS: Anisocytosis 1+; Microcytosis 1+
[2018-09-06] MEDS: methylPREDNISolone SOD SUC 40 MG/1 ML VIAL IV SCH ×2 (06:16→21:07)
[2018-09-06] MEDS: INSULIN LISPRO 100 UNIT/ML SUBCUT SCH ×4 (08:52→21:10)
[2018-09-06] MEDS: INSULIN REGULAR 100 UNIT/ML SUBCUT SCH ×4 (08:52→21:10)
[2018-09-06] MEDS: NYSTATIN 500,000 UNIT/5 ML UDCUP SWISH/SWAL SCH ×4 (08:53→21:07)
[2018-09-06] MEDS: MONTELUKAST 10 MG TABLET PO SCH ×2 (08:53→21:06)
[2018-09-06] MEDS: MIDODRINE 5 MG TABLET PO SCH ×3 (08:54→21:03)
[2018-09-06] MEDS: DOCUSATE SODIUM 100 MG CAPSULE PO SCH ×2 (08:54→21:07)
[2018-09-06] MEDS: PANTOPRAZOLE 40 MG TABLET PO SCH ×2 (08:54→21:06)
[2018-09-06] MEDS: ASPIRIN EC 81 MG TABLET PO SCH (08:54)
[2018-09-06] MEDS: METOPROLOL TARTRATE 25 MG TABLET PO SCH ×2 (08:54→21:03)
[2018-09-06] MEDS: SEVELAMER CARBONATE 800 MG TABLET PO SCH ×3 (08:54→17:12)
[2018-09-06] MEDS: CLOPIDOGREL 75 MG TABLET PO SCH (08:55)
[2018-09-06] MEDS: ZINC OXIDE 16% PASTE 57 GM TUBE TOP SCH ×2 (08:55→21:17)
[2018-09-06] MEDS: POLYETHYLENE GLYCOL POWDER 17 GM PACK PO SCH (08:55)
[2018-09-06] MEDS: [UNRECOGNIZED DRUG - OTHER] PO SCH ×3 (08:56→21:17)
[2018-09-06] MEDS: PRORENAL PO SCH (08:56)
[2018-09-06] MEDS: [UNRECOGNIZED DRUG - OTHER] PO SCH (08:56)
[2018-09-06] MEDS: [UNRECOGNIZED DRUG - OTHER] PO SCH ×3 (08:56→21:17)
[2018-09-06] MEDS: INSULIN GLARGINE 100 UNIT/ML SUBCUT SCH ×2 (09:28→21:08)
[2018-09-06] MEDS: COLLAGENASE OINT 30 GM TUBE TOP SCH (09:28)
[2018-09-06] MEDS: LIDOCAINE 5% PATCH TRANSDERM SCH (15:46)
[2018-09-06] MEDS: GABAPENTIN 300 MG CAPSULE PO SCH (21:03)
[2018-09-06] MEDS: ROSUVASTATIN 20 MG TABLET PO SCH (21:06)
[2018-09-06] MEDS: traZODone 50 MG TABLET PO SCH (21:07)
[2018-09-06] MEDS: CHOLESTYRAMINE 4 GM PACK PO SCH (21:17)
[2018-09-07 04:14] LABS: ABG Base Excess 0.3 MMOL/L (-2.5-2.5); ABG HCO3 25.1 MMOL/L (20-26); ABG PH 7.404 (7.35-7.45); ABG PO2 79.3 MM HG (80-95); ABG TCO2 26.3 MMOL/L (23-27); Allen Test Positive
[2018-09-07 05:13] LABS: Basophils # 0.1 10*3/uL (0.0-0.2); Basophils % 0.6 % (0.0-0.8); Eosinophils # 0.2 10*3/uL (0.0-0.87); Eosinophils % 1.8 % (0.00-10.9); Hematocrit 30.6 VOL% (42.0-52.0); Immature Granulocytes % 4.6 %; Immature Granulocytes Absolute 0.57 #; Lymphocytes # 2.1 10*3/uL (1.4-4.0); Lymphocytes % 16.4 % (21.2-54.2); Mean Corpuscular HGB Conc 29.4 GM/DL (32-36); Mean Corpuscular Hemoglobin 30 PG (27-34); Mean Corpuscular Volume 102.7 FL (87-102); Mean Platelet Volume 10.8 FL (9.6-12.0); Monocytes # 1.6 10*3/uL (0.11-0.8); Monocytes % 12.4 % (1.7-12.7); NRBC # 0.12 10*3/uL; Neutrophils % 64.2 % (38.7-73.9); Platelet Count 171 T/CUMM (130-400); Red Blood Count 2.98 MC/CUMM (3.8-5.5); Red Cell Distribution Width 16.9 % (9.3-17.3); White Blood Count 12.5 T/CUMM (4-12)
[2018-09-07 06:12] LABS: Hypochromasia Slight; Lymphocytes 15 % (20-55); Metamyelocytes 1 %; Platelet Estimate Adequate; Polychromasia Few; Segmented Neutrophils 83 % (50-85); Total Cells Counted 100
[2018-09-07] MEDS: methylPREDNISolone SOD SUC 40 MG/1 ML VIAL IV SCH ×2 (06:22→18:51)
[2018-09-07] MEDS ORDERED: DEXAMETHASONE 10 MG/1 ML VIAL ONE (06:37)
[2018-09-07] MEDS ORDERED: DEXTROSE 50% 25 GM/50 ML VIAL IV ONE (07:18)
[2018-09-07] MEDS: SODIUM CHLORIDE 0.9% 250 ML IV SCH ×2 (07:18→20:49)
[2018-09-07] MEDS ORDERED: ETOMIDATE 40 MG/20 ML VIAL IV ONE (07:46)
[2018-09-07] MEDS ORDERED: PROPOFOL 200 MG/20 ML VIAL IV ONE (07:46)
[2018-09-07] MEDS: PANTOPRAZOLE 40 MG TABLET PO SCH ×2 (09:47→20:38)
[2018-09-07] MEDS: CLOPIDOGREL 75 MG TABLET PO SCH (09:48)
[2018-09-07] MEDS: SEVELAMER CARBONATE 800 MG TABLET PO SCH ×3 (09:48→17:19)
[2018-09-07] MEDS: MONTELUKAST 10 MG TABLET PO SCH ×2 (09:49→20:37)
[2018-09-07] MEDS: ASPIRIN EC 81 MG TABLET PO SCH (09:49)
[2018-09-07] MEDS: MIDODRINE 5 MG TABLET PO SCH ×3 (09:51→20:37)
[2018-09-07] MEDS: METOPROLOL TARTRATE 25 MG TABLET PO SCH ×2 (09:51→20:38)
[2018-09-07] MEDS: [UNRECOGNIZED DRUG - OTHER] PO SCH (09:52)
[2018-09-07] MEDS: PRORENAL PO SCH (09:52)
[2018-09-07] MEDS: [UNRECOGNIZED DRUG - OTHER] PO SCH ×3 (09:53→20:42)
[2018-09-07] MEDS: [UNRECOGNIZED DRUG - OTHER] PO SCH ×3 (09:53→20:42)
[2018-09-07] MEDS: INSULIN GLARGINE 100 UNIT/ML SUBCUT SCH ×2 (09:55→20:38)
[2018-09-07] MEDS: ZINC OXIDE 16% PASTE 57 GM TUBE TOP SCH ×2 (09:56→20:48)
[2018-09-07] MEDS: DOCUSATE SODIUM 100 MG CAPSULE PO SCH ×2 (09:56→20:49)
[2018-09-07] MEDS: EPOETIN ALFA 10,000 UNIT/1 ML VIAL SUBCUT SCH (09:57)
[2018-09-07] MEDS: NYSTATIN 500,000 UNIT/5 ML UDCUP SWISH/SWAL SCH ×4 (09:57→20:38)
[2018-09-07] MEDS: POLYETHYLENE GLYCOL POWDER 17 GM PACK PO SCH (09:58)
[2018-09-07] MEDS: INSULIN REGULAR 100 UNIT/ML SUBCUT SCH ×4 (10:11→20:38)
[2018-09-07] MEDS: INSULIN LISPRO 100 UNIT/ML SUBCUT SCH ×4 (10:12→20:38)
[2018-09-07] MEDS: PIPERACILLIN/TAZOBACTAM 3,375 MG in SODIUM CHLORIDE 0.9% 100 ML IV SCH ×2 (13:12→23:16)
[2018-09-07] MEDS: LIDOCAINE 5% PATCH TRANSDERM SCH (13:15)
[2018-09-07] MEDS: COLLAGENASE OINT 30 GM TUBE TOP SCH (14:03)
[2018-09-07] MEDS: GABAPENTIN 300 MG CAPSULE PO SCH (20:37)
[2018-09-07] MEDS: ROSUVASTATIN 20 MG TABLET PO SCH (20:37)
[2018-09-07] MEDS: traZODone 50 MG TABLET PO SCH (20:37)
[2018-09-07] MEDS: CHOLESTYRAMINE 4 GM PACK PO SCH (20:39)
[2018-09-07] MEDS: oxyCODONE/ACETAMINOPHEN 5-325 MG TABLET PO PRN (20:43)
[2018-09-07] MEDS: traMADol 50 MG TABLET PO PRN (23:18)
[2018-09-08] MEDS: HydrOXYzine PAMOATE 25 MG CAPSULE PO PRN (01:02)
[2018-09-08 05:00] LABS: Basophils % 0.2 % (0.0-0.8); Eosinophils % 0.1 % (0.00-10.9); Hematocrit 26.3 VOL% (42.0-52.0); Hemoglobin 8.2 GM/DL (14.0-18.0); Immature Granulocytes % 4.4 %; Immature Granulocytes Absolute 0.55 #; Lymphocytes % 7.6 % (21.2-54.2); Mean Corpuscular HGB Conc 31.2 GM/DL (32-36); Mean Corpuscular Hemoglobin 30 PG (27-34); Mean Corpuscular Volume 96.3 FL (87-102); Mean Platelet Volume 10.8 FL (9.6-12.0); Monocytes # 1.2 10*3/uL (0.11-0.8); Monocytes % 9.8 % (1.7-12.7); NRBC # 0.07 10*3/uL; Neutrophils # 9.8 10*3/uL (1.4-7.4); Neutrophils % 77.9 % (38.7-73.9); Platelet Count 161 T/CUMM (130-400); Red Blood Count 2.73 MC/CUMM (3.8-5.5); Red Cell Distribution Width 16.7 % (9.3-17.3); White Blood Count 12.6 T/CUMM (4-12)
[2018-09-08 05:26] LABS: Calcium 8.9 MG/DL (8.5-10.1); Lymphocytes 5 % (20-55); Osmolality,Calculated 310.2 MOS/KG (273-304); Potassium 3.3 MMOL/L (3.5-5.1); Segmented Neutrophils 86 % (50-85); Total Cells Counted 100
[2018-09-08 05:27] LABS: Platelet Estimate Normal
[2018-09-08 05:28] LABS: Albumin 2.6 G/DL (3.4-5.0); Potassium 3.4 MMOL/L (3.5-5.1)
[2018-09-08] MEDS: methylPREDNISolone SOD SUC 40 MG/1 ML VIAL IV SCH (06:28)
[2018-09-08] MEDS ORDERED: POTASSIUM CHLORIDE 20 MEQ TABLET PO ONE (08:55)
[2018-09-08] MEDS: MONTELUKAST 10 MG TABLET PO SCH (08:58)
[2018-09-08] MEDS: CLOPIDOGREL 75 MG TABLET PO SCH (08:58)
[2018-09-08] MEDS: SEVELAMER CARBONATE 800 MG TABLET PO SCH ×2 (08:58→12:38)
[2018-09-08] MEDS: MIDODRINE 5 MG TABLET PO SCH (08:58)
[2018-09-08] MEDS: NYSTATIN 500,000 UNIT/5 ML UDCUP SWISH/SWAL SCH ×2 (08:58→12:38)
[2018-09-08] MEDS: PANTOPRAZOLE 40 MG TABLET PO SCH (08:59)
[2018-09-08] MEDS: ASPIRIN EC 81 MG TABLET PO SCH (08:59)
[2018-09-08] MEDS: METOPROLOL TARTRATE 25 MG TABLET PO SCH (08:59)
[2018-09-08] MEDS: PRORENAL PO SCH (09:00)
[2018-09-08] MEDS: [UNRECOGNIZED DRUG - OTHER] PO SCH (09:00)
[2018-09-08] MEDS: [UNRECOGNIZED DRUG - OTHER] PO SCH (09:01)
[2018-09-08] MEDS: [UNRECOGNIZED DRUG - OTHER] PO SCH (09:01)
[2018-09-08] MEDS: COLLAGENASE OINT 30 GM TUBE TOP SCH (09:02)
[2018-09-08] MEDS: ZINC OXIDE 16% PASTE 57 GM TUBE TOP SCH (09:02)
[2018-09-08] MEDS: INSULIN GLARGINE 100 UNIT/ML SUBCUT SCH (09:02)
[2018-09-08] MEDS: POLYETHYLENE GLYCOL POWDER 17 GM PACK PO SCH (09:02)
[2018-09-08] MEDS: DOCUSATE SODIUM 100 MG CAPSULE PO SCH (09:02)
[2018-09-08] MEDS: INSULIN LISPRO 100 UNIT/ML SUBCUT SCH ×2 (09:04→12:42)
[2018-09-08] MEDS: SODIUM CHLORIDE 0.9% 250 ML IV SCH (09:04)
[2018-09-08] MEDS: INSULIN REGULAR 100 UNIT/ML SUBCUT SCH ×2 (09:04→12:40)
[2018-09-08 11:25] VITALS: BP 128/67
[2018-09-08] MEDS: PIPERACILLIN/TAZOBACTAM 3,375 MG in SODIUM CHLORIDE 0.9% 100 ML IV SCH (13:10)
[2018-09-08] MEDS: LIDOCAINE 5% PATCH TRANSDERM SCH (15:21)
== END 2018-09-08 13:20 | disposition home or self-care (01) | DRG 250 ==
LOC: N.ED 05:56 → N.EDINP 05:56 → SUATTDRO 07:46 → N.EDINP 08:39 → N.TELES 09:28 → N.CC 08-25 17:07 → SUATTDRO 08-26 09:30 → N.TELEN 08-29 20:07 → N.ICU 09-01 12:33 → N.5E 09-03 16:28
PROVIDERS: ADMIT Hospitalist; ATTEND Hospitalist

== ENCOUNTER 2019-02-25 11:22 | Inpatient (IN) ==
[2019-02-25] MEDS ORDERED: POTASSIUM CHLORIDE RIDER 10 MEQ in PREMIX 1 EACH IV PRN (12:11)
[2019-02-25] MEDS ORDERED: ASPIRIN 325 MG TABLET PO ONE (12:11)
[2019-02-25] MEDS ORDERED: MAGNESIUM SULF RIDER 2 GM in PREMIX 1 EACH IV PRN (12:11)
[2019-02-25] MEDS ORDERED: diphenhydrAMINE CAP 25 MG CAPSULE PO ONE (12:11)
[2019-02-25] MEDS ORDERED: DIAZEPAM 5 MG TABLET PO ONE (12:11)
[2019-02-25] MEDS ORDERED: predniSONE 20 MG TABLET PO ONE (12:13)
[2019-02-25] MEDS ORDERED: DIAZEPAM 5 MG TABLET ONE (12:22)
[2019-02-25] MEDS ORDERED: ASPIRIN 325 MG TABLET ONE (12:22)
[2019-02-25] MEDS ORDERED: diphenhydrAMINE CAP 25 MG CAPSULE ONE (12:23)
[2019-02-25 12:31] LABS: Calcium 10.1 MG/DL (8.5-10.1); Osmolality,Calculated 287.2 MOS/KG (273-304)
[2019-02-25 12:44] LABS: Basophils % 0.3 % (0.0-0.8); Eosinophils # 0.3 10*3/uL (0.0-0.87); Hematocrit 41.4 VOL% (42.0-52.0); Hemoglobin 13.6 GM/DL (14.0-18.0); Immature Granulocytes % 0.8 %; Immature Granulocytes Absolute 0.06 #; Lymphocytes # 0.7 10*3/uL (1.4-4.0); Lymphocytes % 9.3 % (21.2-54.2); Mean Corpuscular HGB Conc 32.9 GM/DL (32-36); Mean Corpuscular Volume 102.2 FL (87-102); Mean Platelet Volume 10.4 FL (9.6-12.0); Monocytes % 11.7 % (1.7-12.7); Neutrophils % 73.9 % (38.7-73.9); Platelet Count 110 T/CUMM (130-400); Red Blood Count 4.05 MC/CUMM (3.8-5.5); Red Cell Distribution Width 14.6 % (9.3-17.3); White Blood Count 7.2 T/CUMM (4-12)
[2019-02-25 12:49] LABS: INR 1.1; PT Patient Result 11.4 SECS (9.6-12.2)
[2019-02-25] MEDS: SODIUM CHLORIDE 0.9% 1,000 ML IV SCH ×2 (13:03→18:09)
[2019-02-25] MEDS ORDERED: HYDROmorphone 2 MG/1 ML VIAL ONE (14:36)
[2019-02-25] MEDS ORDERED: LIDOCAINE 1% 20 ML VIAL ONE (14:36)
[2019-02-25] MEDS ORDERED: MIDAZOLAM 2 MG/2 ML VIAL ONE ×2 (14:37→15:50)
[2019-02-25] MEDS ORDERED: methylPREDNISolone SOD SUC 125 MG/2 ML VIAL ONE (15:03)
[2019-02-25] MEDS ORDERED: diphenhydrAMINE 50 MG/1 ML VIAL ONE (15:14)
[2019-02-25] MEDS ORDERED: HEPARIN 5,000 UNIT/1 ML VIAL ONE (15:16)
[2019-02-25] MEDS ORDERED: METOPROLOL TARTRATE 5 MG/5 ML VIAL IV ONE ×3 (15:50→17:22)
[2019-02-25] MEDS ORDERED: NITROGLYCERIN SL 0.4 MG TABLET SL PRN (16:48)
[2019-02-25] MEDS ORDERED: CLOPIDOGREL 300 MG TABLET ONE (16:49)
[2019-02-25] MEDS ORDERED: dilTIAZem Drip 125 MG/125 ML PREMIX IV SCH (18:00)
[2019-02-25] MEDS: SEVELAMER CARBONATE 800 MG TABLET PO SCH (18:07)
[2019-02-25] MEDS: METOPROLOL TARTRATE 5 MG/5 ML VIAL IV SCH ×2 (18:08→18:09)
[2019-02-25] MEDS: DOCUSATE SODIUM 100 MG CAPSULE PO SCH (21:58)
[2019-02-25] MEDS: ASPIRIN EC 81 MG TABLET PO SCH (21:58)
[2019-02-25] MEDS: INSULIN LISPRO 100 UNIT/ML SUBCUT SCH ×2 (21:58→21:59)
[2019-02-25] MEDS: FAMOTIDINE 20 MG TABLET PO SCH (21:59)
[2019-02-25] MEDS: INSULIN ASPART PROTAMINE/ASPART 70/30 100 UNIT/ML SUBCUT SCH (21:59)
[2019-02-25] MEDS: RIVAROXABAN 2.5 MG TABLET PO SCH (21:59)
[2019-02-25] MEDS: GABAPENTIN 300 MG CAPSULE PO SCH (21:59)
[2019-02-25] MEDS: SILVER SULFADIAZINE 1% CREAM 25 GM TUBE TOP SCH (22:01)
[2019-02-26] MEDS ORDERED: SODIUM CHLORIDE 0.9% 500 ML IV ONE (01:43)
[2019-02-26 02:13] LABS: Hematocrit 27.1 VOL% (42.0-52.0); Hemoglobin 8.8 GM/DL (14.0-18.0)
[2019-02-26 02:40] LABS: Calcium 9.8 MG/DL (8.5-10.1); Osmolality,Calculated 292.7 MOS/KG (273-304)
[2019-02-26 04:32] LABS: Basophils % 0.2 % (0.0-0.8); Hematocrit 25.5 VOL% (42.0-52.0); Hemoglobin 8.2 GM/DL (14.0-18.0); Immature Granulocytes % 0.9 %; Lymphocytes # 0.6 10*3/uL (1.4-4.0); Lymphocytes % 5.4 % (21.2-54.2); Mean Corpuscular HGB Conc 32.2 GM/DL (32-36); Mean Corpuscular Volume 105.4 FL (87-102); Mean Platelet Volume 10.7 FL (9.6-12.0); Monocytes % 7.2 % (1.7-12.7); Neutrophils % 86.3 % (38.7-73.9); Platelet Count 130 T/CUMM (130-400); Red Blood Count 2.42 MC/CUMM (3.8-5.5); Red Cell Distribution Width 14.5 % (9.3-17.3); White Blood Count 11.3 T/CUMM (4-12)
[2019-02-26] MEDS: CLOPIDOGREL 75 MG TABLET PO SCH (09:12)
[2019-02-26] MEDS: GABAPENTIN 300 MG CAPSULE PO SCH ×2 (09:12→21:28)
[2019-02-26] MEDS: DOCUSATE SODIUM 100 MG CAPSULE PO SCH ×2 (09:12→20:17)
[2019-02-26] MEDS: FAMOTIDINE 20 MG TABLET PO SCH ×2 (09:13→20:17)
[2019-02-26] MEDS: RIVAROXABAN 2.5 MG TABLET PO SCH ×2 (09:13→20:20)
[2019-02-26] MEDS: INSULIN ASPART PROTAMINE/ASPART 70/30 100 UNIT/ML SUBCUT SCH ×2 (09:13→21:28)
[2019-02-26] MEDS: INSULIN LISPRO 100 UNIT/ML SUBCUT SCH ×4 (09:14→20:19)
[2019-02-26] MEDS: SEVELAMER CARBONATE 800 MG TABLET PO SCH ×3 (09:20→18:10)
[2019-02-26] MEDS: NEPHRO VITE PO SCH (10:21)
[2019-02-26] MEDS: MIDODRINE 5 MG TABLET PO SCH ×2 (12:38→20:17)
[2019-02-26] MEDS ORDERED: SODIUM CHLORIDE 0.9% 1,000 ML IV PRN (16:48)
[2019-02-26] MEDS: EPOETIN ALFA 10,000 UNIT/1 ML VIAL SUBCUT SCH (18:10)
[2019-02-26] MEDS: ASPIRIN EC 81 MG TABLET PO SCH (20:17)
[2019-02-26] MEDS ORDERED: SODIUM CHLORIDE 0.9% 250 ML IV PRN (20:56)
[2019-02-26] MEDS: SILVER SULFADIAZINE 1% CREAM 25 GM TUBE TOP SCH (21:43)
[2019-02-27 03:52] LABS: Hematocrit 27.6 VOL% (42.0-52.0)
[2019-02-27] MEDS: INSULIN LISPRO 100 UNIT/ML SUBCUT SCH ×4 (08:01→21:55)
[2019-02-27] MEDS: SEVELAMER CARBONATE 800 MG TABLET PO SCH ×3 (08:04→17:19)
[2019-02-27] MEDS: INSULIN ASPART PROTAMINE/ASPART 70/30 100 UNIT/ML SUBCUT SCH ×2 (08:58→21:55)
[2019-02-27] MEDS: DOCUSATE SODIUM 100 MG CAPSULE PO SCH ×2 (08:59→21:51)
[2019-02-27] MEDS: FAMOTIDINE 20 MG TABLET PO SCH ×2 (08:59→21:48)
[2019-02-27] MEDS: CLOPIDOGREL 75 MG TABLET PO SCH (08:59)
[2019-02-27] MEDS: RIVAROXABAN 2.5 MG TABLET PO SCH ×2 (08:59→21:51)
[2019-02-27] MEDS: MIDODRINE 5 MG TABLET PO SCH ×2 (08:59→21:51)
[2019-02-27] MEDS: GABAPENTIN 300 MG CAPSULE PO SCH ×2 (09:01→21:51)
[2019-02-27] MEDS: NEPHRO VITE PO SCH (09:01)
[2019-02-27] MEDS: diphenhydrAMINE CAP 25 MG CAPSULE PO PRN ×2 (14:24→21:50)
[2019-02-27] MEDS: oxyCODONE/ACETAMINOPHEN 5-325 MG TABLET PO PRN (21:49)
[2019-02-27] MEDS: ASPIRIN EC 81 MG TABLET PO SCH (21:51)
[2019-02-28] MEDS: SILVER SULFADIAZINE 1% CREAM 25 GM TUBE TOP SCH ×2 (00:26→22:02)
[2019-02-28] MEDS: diphenhydrAMINE CAP 25 MG CAPSULE PO PRN (04:15)
[2019-02-28] MEDS: oxyCODONE/ACETAMINOPHEN 5-325 MG TABLET PO PRN (04:19)
[2019-02-28] MEDS: ONDANSETRON 4 MG/2 ML VIAL IV PRN (05:10)
[2019-02-28] MEDS: INSULIN ASPART PROTAMINE/ASPART 70/30 100 UNIT/ML SUBCUT SCH ×2 (08:33→21:01)
[2019-02-28] MEDS: INSULIN LISPRO 100 UNIT/ML SUBCUT SCH ×4 (08:33→21:01)
[2019-02-28] MEDS: RIVAROXABAN 2.5 MG TABLET PO SCH ×2 (08:34→21:00)
[2019-02-28] MEDS: MIDODRINE 5 MG TABLET PO SCH ×2 (08:35→20:58)
[2019-02-28] MEDS: GABAPENTIN 300 MG CAPSULE PO SCH ×2 (08:35→21:00)
[2019-02-28] MEDS: CLOPIDOGREL 75 MG TABLET PO SCH (08:35)
[2019-02-28] MEDS: SEVELAMER CARBONATE 800 MG TABLET PO SCH ×3 (08:35→16:58)
[2019-02-28] MEDS: FAMOTIDINE 20 MG TABLET PO SCH ×2 (08:35→20:58)
[2019-02-28] MEDS: NEPHRO VITE PO SCH (08:36)
[2019-02-28] MEDS: DOCUSATE SODIUM 100 MG CAPSULE PO SCH ×2 (08:36→20:59)
[2019-02-28] MEDS: LORATADINE 10 MG TABLET PO SCH (11:57)
[2019-02-28] MEDS: ASPIRIN EC 81 MG TABLET PO SCH (20:59)
[2019-03-01 05:17] LABS: Basophils % 0.2 % (0.0-0.8); Eosinophils # 0.3 10*3/uL (0.0-0.87); Eosinophils % 2.1 % (0.00-10.9); Hematocrit 32.6 VOL% (42.0-52.0); Immature Granulocytes % 0.9 %; Immature Granulocytes Absolute 0.12 #; Lymphocytes # 1.2 10*3/uL (1.4-4.0); Lymphocytes % 8.7 % (21.2-54.2); Mean Corpuscular HGB Conc 30.7 GM/DL (32-36); Mean Corpuscular Volume 109.8 FL (87-102); Mean Platelet Volume 11.1 FL (9.6-12.0); Monocytes % 13.2 % (1.7-12.7); NRBC # 0.02 10*3/uL; Neutrophils % 74.9 % (38.7-73.9); Platelet Count 149 T/CUMM (130-400); Red Blood Count 2.97 MC/CUMM (3.8-5.5); Red Cell Distribution Width 16.2 % (9.3-17.3); White Blood Count 13.2 T/CUMM (4-12)
[2019-03-01 05:30] LABS: Albumin 2.2 G/DL (3.4-5.0); Bilirubin,Total 0.6 MG/DL (0.2-1.0); Calcium 9.8 MG/DL (8.5-10.1); Osmolality,Calculated 285.7 MOS/KG (273-304); Total Protein 6.3 G/DL (6.4-8.3)
[2019-03-01] MEDS: FAMOTIDINE 20 MG TABLET PO SCH ×2 (08:06→21:18)
[2019-03-01] MEDS: INSULIN ASPART PROTAMINE/ASPART 70/30 100 UNIT/ML SUBCUT SCH ×2 (08:07→21:18)
[2019-03-01] MEDS: INSULIN LISPRO 100 UNIT/ML SUBCUT SCH ×4 (08:07→21:17)
[2019-03-01] MEDS: CLOPIDOGREL 75 MG TABLET PO SCH ×2 (08:07→13:26)
[2019-03-01] MEDS: GABAPENTIN 300 MG CAPSULE PO SCH ×2 (08:08→21:17)
[2019-03-01] MEDS: LORATADINE 10 MG TABLET PO SCH (08:08)
[2019-03-01] MEDS: DOCUSATE SODIUM 100 MG CAPSULE PO SCH ×2 (08:08→21:17)
[2019-03-01] MEDS ORDERED: MIDODRINE 5 MG TABLET PO SCH (09:00)
[2019-03-01] MEDS: NEPHRO VITE PO SCH (09:47)
[2019-03-01] MEDS: RIVAROXABAN 2.5 MG TABLET PO SCH ×2 (09:48→21:19)
[2019-03-01] MEDS: MIDODRINE 5 MG TABLET PO SCH ×3 (09:48→18:34)
[2019-03-01] MEDS: SEVELAMER CARBONATE 800 MG TABLET PO SCH ×3 (09:48→18:34)
[2019-03-01] MEDS: EPOETIN ALFA 10,000 UNIT/1 ML VIAL SUBCUT SCH (10:48)
[2019-03-01] MEDS ORDERED: LEVOFLOXACIN INJ 500 MG in PREMIX 1 EACH IV ONE (15:00)
[2019-03-01] MEDS: HYDROCORTISONE 100 MG VIAL IV SCH ×2 (16:30→22:12)
[2019-03-01] MEDS: oxyCODONE/ACETAMINOPHEN 5-325 MG TABLET PO PRN (18:34)
[2019-03-01] MEDS: SILVER SULFADIAZINE 1% CREAM 25 GM TUBE TOP SCH (21:19)
[2019-03-01] MEDS: diphenhydrAMINE CAP 25 MG CAPSULE PO PRN (21:24)
[2019-03-01] MEDS: ASPIRIN EC 81 MG TABLET PO SCH (21:33)
[2019-03-01] MEDS: PHENYLEPHRINE DRIP 40 MG/250 ML PREMIX IV PRN (22:12)
[2019-03-02] MEDS: MIDODRINE 5 MG TABLET PO SCH ×4 (00:50→17:18)
[2019-03-02 02:13] LABS: Basophils % 0.2 % (0.0-0.8); Eosinophils # 0.1 10*3/uL (0.0-0.87); Eosinophils % 0.4 % (0.00-10.9); Hematocrit 28.9 VOL% (42.0-52.0); Hemoglobin 9.4 GM/DL (14.0-18.0); Immature Granulocytes % 1.2 %; Immature Granulocytes Absolute 0.16 #; Lymphocytes # 0.8 10*3/uL (1.4-4.0); Lymphocytes % 5.9 % (21.2-54.2); Mean Corpuscular HGB Conc 32.5 GM/DL (32-36); Mean Corpuscular Volume 102.5 FL (87-102); Mean Platelet Volume 10.6 FL (9.6-12.0); Monocytes % 14.8 % (1.7-12.7); Neutrophils % 77.5 % (38.7-73.9); Platelet Count 178 T/CUMM (130-400); Red Blood Count 2.82 MC/CUMM (3.8-5.5); Red Cell Distribution Width 15.9 % (9.3-17.3); White Blood Count 12.9 T/CUMM (4-12)
[2019-03-02 02:35] LABS: Albumin 2.2 G/DL (3.4-5.0); Bilirubin,Total 0.6 MG/DL (0.2-1.0); Calcium 9.6 MG/DL (8.5-10.1); Osmolality,Calculated 288.5 MOS/KG (273-304); Total Protein 6.5 G/DL (6.4-8.3)
[2019-03-02] MEDS: HYDROCORTISONE 100 MG VIAL IV SCH ×4 (04:27→21:29)
[2019-03-02] MEDS: diphenhydrAMINE CAP 25 MG CAPSULE PO PRN ×3 (04:34→17:44)
[2019-03-02] MEDS: SEVELAMER CARBONATE 800 MG TABLET PO SCH ×3 (08:29→17:18)
[2019-03-02] MEDS: INSULIN LISPRO 100 UNIT/ML SUBCUT SCH ×4 (08:29→21:29)
[2019-03-02] MEDS: INSULIN ASPART PROTAMINE/ASPART 70/30 100 UNIT/ML SUBCUT SCH ×2 (08:30→21:28)
[2019-03-02] MEDS: LORATADINE 10 MG TABLET PO SCH (08:32)
[2019-03-02] MEDS: GABAPENTIN 300 MG CAPSULE PO SCH ×2 (08:32→21:32)
[2019-03-02] MEDS: CLOPIDOGREL 75 MG TABLET PO SCH (08:33)
[2019-03-02] MEDS: DOCUSATE SODIUM 100 MG CAPSULE PO SCH ×2 (08:33→21:32)
[2019-03-02] MEDS: FAMOTIDINE 20 MG TABLET PO SCH ×2 (08:33→21:32)
[2019-03-02] MEDS: NEPHRO VITE PO SCH ×2 (08:49→09:23)
[2019-03-02] MEDS: RIVAROXABAN 2.5 MG TABLET PO SCH ×2 (09:23→21:32)
[2019-03-02] MEDS ORDERED: GENTAMICIN INJ 240 MG in SODIUM CHLORIDE 0.9% 100 ML IV PRN (11:18)
[2019-03-02] MEDS: ALBUTEROL/IPRATROPIUM 3 ML NEB RESP TX SCH ×4 (11:23→22:30)
[2019-03-02] MEDS: PHENYLEPHRINE DRIP 40 MG/250 ML PREMIX IV PRN ×2 (11:28→23:02)
[2019-03-02] MEDS ORDERED: GENTAMICIN INJ 240 MG in SODIUM CHLORIDE 0.9% 100 ML IV ONE (12:00)
[2019-03-02] MEDS: FLUDROCORTISONE 0.1 MG TABLET PO SCH ×2 (14:12→21:32)
[2019-03-02] MEDS ORDERED: VANCOMYCIN INJ 1,000 MG in SODIUM CHLORIDE 0.9% 250 ML IV ONE (15:19)
[2019-03-02] MEDS: ASPIRIN EC 81 MG TABLET PO SCH (21:32)
[2019-03-02] MEDS: SILVER SULFADIAZINE 1% CREAM 25 GM TUBE TOP SCH (21:41)
[2019-03-03] MEDS: MIDODRINE 5 MG TABLET PO SCH ×4 (01:20→18:09)
[2019-03-03] MEDS: ALBUTEROL/IPRATROPIUM 3 ML NEB RESP TX SCH ×6 (03:28→23:15)
[2019-03-03] MEDS: HYDROCORTISONE 100 MG VIAL IV SCH ×2 (04:48→15:30)
[2019-03-03] MEDS: PHENYLEPHRINE DRIP 40 MG/250 ML PREMIX IV PRN ×4 (04:48→17:01)
[2019-03-03] MEDS: diphenhydrAMINE CAP 25 MG CAPSULE PO PRN ×2 (04:54→15:20)
[2019-03-03 05:04] LABS: Basophils % 0.3 % (0.0-0.8); Eosinophils # 0.1 10*3/uL (0.0-0.87); Eosinophils % 0.5 % (0.00-10.9); Hematocrit 27.4 VOL% (42.0-52.0); Hemoglobin 8.9 GM/DL (14.0-18.0); Immature Granulocytes % 1.2 %; Immature Granulocytes Absolute 0.15 #; Lymphocytes # 0.9 10*3/uL (1.4-4.0); Lymphocytes % 7.3 % (21.2-54.2); Mean Corpuscular HGB Conc 32.5 GM/DL (32-36); Mean Corpuscular Volume 102.6 FL (87-102); Mean Platelet Volume 11.3 FL (9.6-12.0); Monocytes % 15.6 % (1.7-12.7); Neutrophils % 75.1 % (38.7-73.9); Platelet Count 216 T/CUMM (130-400); Red Blood Count 2.67 MC/CUMM (3.8-5.5); Red Cell Distribution Width 15.7 % (9.3-17.3); White Blood Count 12.6 T/CUMM (4-12)
[2019-03-03 05:32] LABS: Calcium 9.6 MG/DL (8.5-10.1); Osmolality,Calculated 290.7 MOS/KG (273-304)
[2019-03-03 05:40] LABS: Band Neutrophils 3 % (0-10); Hypochromasia 1+; Lymphocytes 4 % (20-55); Platelet Estimate Adequate; Segmented Neutrophils 77 % (50-85); Total Cells Counted 100
[2019-03-03] MEDS: FLUDROCORTISONE 0.1 MG TABLET PO SCH ×2 (08:49→21:05)
[2019-03-03] MEDS: SEVELAMER CARBONATE 800 MG TABLET PO SCH ×5 (08:50→17:08)
[2019-03-03] MEDS: CLOPIDOGREL 75 MG TABLET PO SCH (08:50)
[2019-03-03] MEDS: DOCUSATE SODIUM 100 MG CAPSULE PO SCH ×2 (08:50→21:05)
[2019-03-03] MEDS: LORATADINE 10 MG TABLET PO SCH (08:50)
[2019-03-03] MEDS: FAMOTIDINE 20 MG TABLET PO SCH ×2 (08:50→21:06)
[2019-03-03] MEDS: GABAPENTIN 300 MG CAPSULE PO SCH ×2 (08:50→21:06)
[2019-03-03] MEDS: INSULIN LISPRO 100 UNIT/ML SUBCUT SCH ×4 (08:51→21:05)
[2019-03-03] MEDS: INSULIN ASPART PROTAMINE/ASPART 70/30 100 UNIT/ML SUBCUT SCH ×2 (08:52→21:05)
[2019-03-03] MEDS: EPOETIN ALFA 10,000 UNIT/1 ML VIAL SUBCUT SCH (09:51)
[2019-03-03] MEDS: RIVAROXABAN 2.5 MG TABLET PO SCH ×2 (09:53→21:06)
[2019-03-03] MEDS: NEPHRO VITE PO SCH (09:54)
[2019-03-03] MEDS ORDERED: LEVOFLOXACIN INJ 250 MG in PREMIX 1 EACH IV SCH (15:00)
[2019-03-03] MEDS: ASPIRIN EC 81 MG TABLET PO SCH (21:06)
[2019-03-03] MEDS: SILVER SULFADIAZINE 1% CREAM 25 GM TUBE TOP SCH (21:48)
[2019-03-04] MEDS: MIDODRINE 5 MG TABLET PO SCH ×4 (00:43→17:55)
[2019-03-04] MEDS: PHENYLEPHRINE DRIP 40 MG/250 ML PREMIX IV PRN ×2 (02:36→21:59)
[2019-03-04] MEDS: ALBUTEROL/IPRATROPIUM 3 ML NEB RESP TX SCH ×6 (03:05→23:58)
[2019-03-04 03:17] LABS: Basophils % 0.3 % (0.0-0.8); Eosinophils # 0.1 10*3/uL (0.0-0.87); Eosinophils % 0.7 % (0.00-10.9); Hematocrit 24.9 VOL% (42.0-52.0); Hemoglobin 8.1 GM/DL (14.0-18.0); Immature Granulocytes % 1.3 %; Immature Granulocytes Absolute 0.18 #; Lymphocytes # 1.1 10*3/uL (1.4-4.0); Lymphocytes % 7.6 % (21.2-54.2); Mean Corpuscular HGB Conc 32.5 GM/DL (32-36); Mean Corpuscular Volume 101.6 FL (87-102); Mean Platelet Volume 10.7 FL (9.6-12.0); Monocytes % 13.9 % (1.7-12.7); Neutrophils % 76.2 % (38.7-73.9); Platelet Count 169 T/CUMM (130-400); Red Blood Count 2.45 MC/CUMM (3.8-5.5); Red Cell Distribution Width 15.4 % (9.3-17.3); White Blood Count 13.8 T/CUMM (4-12)
[2019-03-04 03:32] LABS: Calcium 9.6 MG/DL (8.5-10.1); Osmolality,Calculated 291.4 MOS/KG (273-304)
[2019-03-04] MEDS: HYDROCORTISONE 100 MG VIAL IV SCH ×2 (04:32→16:33)
[2019-03-04] MEDS: diphenhydrAMINE CAP 25 MG CAPSULE PO PRN ×2 (06:31→20:27)
[2019-03-04] MEDS: INSULIN LISPRO 100 UNIT/ML SUBCUT SCH ×4 (08:30→20:26)
[2019-03-04] MEDS: SEVELAMER CARBONATE 800 MG TABLET PO SCH ×3 (09:08→17:55)
[2019-03-04] MEDS: NEPHRO VITE PO SCH (09:09)
[2019-03-04] MEDS: FLUDROCORTISONE 0.1 MG TABLET PO SCH ×2 (09:09→20:28)
[2019-03-04] MEDS: RIVAROXABAN 2.5 MG TABLET PO SCH ×2 (09:10→20:27)
[2019-03-04] MEDS: DOCUSATE SODIUM 100 MG CAPSULE PO SCH ×2 (09:11→20:27)
[2019-03-04] MEDS: GABAPENTIN 300 MG CAPSULE PO SCH ×2 (09:11→20:27)
[2019-03-04] MEDS: CLOPIDOGREL 75 MG TABLET PO SCH (09:11)
[2019-03-04] MEDS: FAMOTIDINE 20 MG TABLET PO SCH ×2 (09:11→20:27)
[2019-03-04] MEDS: LORATADINE 10 MG TABLET PO SCH (09:12)
[2019-03-04] MEDS: INSULIN ASPART PROTAMINE/ASPART 70/30 100 UNIT/ML SUBCUT SCH ×2 (10:01→20:27)
[2019-03-04] MEDS: ASPIRIN EC 81 MG TABLET PO SCH (20:27)
[2019-03-04] MEDS: SILVER SULFADIAZINE 1% CREAM 25 GM TUBE TOP SCH (20:28)
[2019-03-05] MEDS: MIDODRINE 5 MG TABLET PO SCH ×4 (00:04→17:54)
[2019-03-05 03:25] LABS: Basophils % 0.2 % (0.0-0.8); Eosinophils # 0.1 10*3/uL (0.0-0.87); Eosinophils % 0.8 % (0.00-10.9); Hematocrit 24.3 VOL% (42.0-52.0); Hemoglobin 7.8 GM/DL (14.0-18.0); Immature Granulocytes Absolute 0.31 #; Lymphocytes # 1.1 10*3/uL (1.4-4.0); Lymphocytes % 7.3 % (21.2-54.2); Mean Corpuscular HGB Conc 32.1 GM/DL (32-36); Mean Corpuscular Volume 100.4 FL (87-102); Mean Platelet Volume 11.1 FL (9.6-12.0); Monocytes % 9.7 % (1.7-12.7); NRBC # 0.02 10*3/uL; Platelet Count 165 T/CUMM (130-400); Red Blood Count 2.42 MC/CUMM (3.8-5.5); Red Cell Distribution Width 15.8 % (9.3-17.3); White Blood Count 15.6 T/CUMM (4-12)
[2019-03-05 03:56] LABS: Calcium 9.7 MG/DL (8.5-10.1); Osmolality,Calculated 293.4 MOS/KG (273-304)
[2019-03-05] MEDS: HYDROCORTISONE 100 MG VIAL IV SCH ×2 (04:14→16:42)
[2019-03-05] MEDS: ALBUTEROL/IPRATROPIUM 3 ML NEB RESP TX SCH ×5 (04:33→19:07)
[2019-03-05] MEDS: FLUDROCORTISONE 0.1 MG TABLET PO SCH ×2 (09:58→21:27)
[2019-03-05] MEDS: GABAPENTIN 300 MG CAPSULE PO SCH ×2 (09:59→21:26)
[2019-03-05] MEDS: SEVELAMER CARBONATE 800 MG TABLET PO SCH ×3 (09:59→17:54)
[2019-03-05] MEDS: LORATADINE 10 MG TABLET PO SCH (10:00)
[2019-03-05] MEDS: RIVAROXABAN 2.5 MG TABLET PO SCH ×2 (10:00→21:27)
[2019-03-05] MEDS: DOCUSATE SODIUM 100 MG CAPSULE PO SCH ×2 (10:00→21:26)
[2019-03-05] MEDS: NAFCILLIN 2,000 MG in SODIUM CHLORIDE 0.9% 100 ML IV SCH ×3 (10:00→21:28)
[2019-03-05] MEDS: CLOPIDOGREL 75 MG TABLET PO SCH (10:00)
[2019-03-05] MEDS: INSULIN LISPRO 100 UNIT/ML SUBCUT SCH ×4 (10:01→21:26)
[2019-03-05] MEDS: INSULIN ASPART PROTAMINE/ASPART 70/30 100 UNIT/ML SUBCUT SCH ×2 (10:01→21:26)
[2019-03-05] MEDS: NEPHRO VITE PO SCH (10:01)
[2019-03-05] MEDS: FAMOTIDINE 20 MG TABLET PO SCH ×2 (10:02→21:27)
[2019-03-05 12:26] LABS: HIV Antigen/Antibody Result Nonreactive (Nonreactive); Hepatitis B Surface Ag Quant < 0.10 Index; Hepatitis B Surface Ag Result Negative (Negative); Hepatitis C Virus Ab Quant 0.05 Index; Hepatitis C Virus Ab Result Negative (Negative)
[2019-03-05] MEDS: MEROPENEM 500 MG in SYRINGE 1 EACH IV SCH (12:27)
[2019-03-05] MEDS: EPOETIN ALFA 10,000 UNIT/1 ML VIAL SUBCUT SCH (12:34)
[2019-03-05] MEDS: ASPIRIN EC 81 MG TABLET PO SCH (21:27)
[2019-03-05] MEDS: SILVER SULFADIAZINE 1% CREAM 25 GM TUBE TOP SCH (21:28)
[2019-03-06] MEDS: ALBUTEROL/IPRATROPIUM 3 ML NEB RESP TX SCH ×7 (00:05→22:35)
[2019-03-06] MEDS: MIDODRINE 5 MG TABLET PO SCH ×4 (00:13→17:43)
[2019-03-06] MEDS: NAFCILLIN 2,000 MG in SODIUM CHLORIDE 0.9% 100 ML IV SCH ×6 (01:17→21:20)
[2019-03-06 03:11] LABS: Basophils % 0.1 % (0.0-0.8); Eosinophils # 0.1 10*3/uL (0.0-0.87); Eosinophils % 0.5 % (0.00-10.9); Hematocrit 23.4 VOL% (42.0-52.0); Hemoglobin 7.6 GM/DL (14.0-18.0); Immature Granulocytes % 2.6 %; Immature Granulocytes Absolute 0.38 #; Lymphocytes # 1.1 10*3/uL (1.4-4.0); Lymphocytes % 7.4 % (21.2-54.2); Mean Corpuscular HGB Conc 32.5 GM/DL (32-36); Mean Corpuscular Volume 100.9 FL (87-102); Mean Platelet Volume 11.1 FL (9.6-12.0); Monocytes % 8.7 % (1.7-12.7); NRBC # 0.02 10*3/uL; Neutrophils % 80.7 % (38.7-73.9); Platelet Count 169 T/CUMM (130-400); Red Blood Count 2.32 MC/CUMM (3.8-5.5); Red Cell Distribution Width 15.8 % (9.3-17.3); White Blood Count 14.8 T/CUMM (4-12)
[2019-03-06 03:18] LABS: Calcium 9.3 MG/DL (8.5-10.1); Osmolality,Calculated 297.2 MOS/KG (273-304)
[2019-03-06] MEDS: HYDROCORTISONE 100 MG VIAL IV SCH ×2 (04:45→16:52)
[2019-03-06] MEDS: LORATADINE 10 MG TABLET PO SCH (09:48)
[2019-03-06] MEDS: FAMOTIDINE 20 MG TABLET PO SCH ×2 (09:48→21:22)
[2019-03-06] MEDS: NEPHRO VITE PO SCH (09:48)
[2019-03-06] MEDS: RIVAROXABAN 2.5 MG TABLET PO SCH ×2 (09:48→21:23)
[2019-03-06] MEDS: GABAPENTIN 300 MG CAPSULE PO SCH ×2 (09:48→21:22)
[2019-03-06] MEDS: CLOPIDOGREL 75 MG TABLET PO SCH (09:48)
[2019-03-06] MEDS: DOCUSATE SODIUM 100 MG CAPSULE PO SCH ×2 (09:48→21:22)
[2019-03-06] MEDS: FLUDROCORTISONE 0.1 MG TABLET PO SCH ×2 (09:48→21:22)
[2019-03-06] MEDS: INSULIN ASPART PROTAMINE/ASPART 70/30 100 UNIT/ML SUBCUT SCH ×2 (09:50→21:21)
[2019-03-06] MEDS: INSULIN LISPRO 100 UNIT/ML SUBCUT SCH ×4 (10:02→21:22)
[2019-03-06] MEDS: SEVELAMER CARBONATE 800 MG TABLET PO SCH ×3 (10:02→16:05)
[2019-03-06] MEDS ORDERED: MAGNESIUM SULF RIDER 4 GM in PREMIX 1 EACH IV PRN (12:27)
[2019-03-06] MEDS: MEROPENEM 500 MG in SYRINGE 1 EACH IV SCH (12:49)
[2019-03-06] MEDS: MAGNESIUM SULF RIDER 2 GM in PREMIX 1 EACH IV PRN (13:10)
[2019-03-06] MEDS: POTASSIUM CHLORIDE 20 MEQ TABLET PO PRN ×3 (13:10→17:44)
[2019-03-06] MEDS: oxyCODONE/ACETAMINOPHEN 5-325 MG TABLET PO PRN (18:35)
[2019-03-06 20:24] LABS: Hemoglobin 9.5 GM/DL (14.0-18.0)
[2019-03-06] MEDS: POLYETHYLENE GLYCOL POWDER 17 GM PACK PO SCH (21:02)
[2019-03-06] MEDS: ASPIRIN EC 81 MG TABLET PO SCH (21:22)
[2019-03-06] MEDS: SILVER SULFADIAZINE 1% CREAM 25 GM TUBE TOP SCH (21:23)
[2019-03-07] MEDS: MIDODRINE 5 MG TABLET PO SCH ×4 (00:12→17:06)
[2019-03-07] MEDS: NAFCILLIN 2,000 MG in SODIUM CHLORIDE 0.9% 100 ML IV SCH ×6 (00:13→21:25)
[2019-03-07] MEDS: ALBUTEROL/IPRATROPIUM 3 ML NEB RESP TX SCH ×5 (02:32→19:34)
[2019-03-07] MEDS: HYDROCORTISONE 100 MG VIAL IV SCH ×2 (04:09→16:32)
[2019-03-07 04:10] LABS: Calcium 9.5 MG/DL (8.5-10.1); Osmolality,Calculated 307.2 MOS/KG (273-304)
[2019-03-07 04:13] LABS: Basophils # 0.1 10*3/uL (0.0-0.2); Basophils % 0.4 % (0.0-0.8); Eosinophils # 0.1 10*3/uL (0.0-0.87); Eosinophils % 0.4 % (0.00-10.9); Hematocrit 28.8 VOL% (42.0-52.0); Hemoglobin 9.5 GM/DL (14.0-18.0); Immature Granulocytes % 4.4 %; Immature Granulocytes Absolute 0.69 #; Lymphocytes # 0.8 10*3/uL (1.4-4.0); Lymphocytes % 5.2 % (21.2-54.2); Mean Corpuscular Volume 98.3 FL (87-102); Mean Platelet Volume 10.6 FL (9.6-12.0); Monocytes % 7.4 % (1.7-12.7); NRBC # 0.04 10*3/uL; Neutrophils % 82.2 % (38.7-73.9); Platelet Count 198 T/CUMM (130-400); Red Blood Count 2.93 MC/CUMM (3.8-5.5); Red Cell Distribution Width 17.2 % (9.3-17.3); White Blood Count 15.7 T/CUMM (4-12)
[2019-03-07 04:44] LABS: Band Neutrophils 1 % (0-10); Eosinophils 1 % (0-10); Hypochromasia 1+; Lymphocytes 8 % (20-55); Platelet Estimate Adequate; Segmented Neutrophils 87 % (50-85); Total Cells Counted 100
[2019-03-07] MEDS: FLUDROCORTISONE 0.1 MG TABLET PO SCH ×2 (08:10→21:24)
[2019-03-07] MEDS: SEVELAMER CARBONATE 800 MG TABLET PO SCH ×3 (08:10→16:32)
[2019-03-07] MEDS: CLOPIDOGREL 75 MG TABLET PO SCH (08:11)
[2019-03-07] MEDS: GABAPENTIN 300 MG CAPSULE PO SCH ×2 (08:11→21:24)
[2019-03-07] MEDS: LORATADINE 10 MG TABLET PO SCH (08:11)
[2019-03-07] MEDS: FAMOTIDINE 20 MG TABLET PO SCH ×2 (08:11→21:24)
[2019-03-07] MEDS: INSULIN ASPART PROTAMINE/ASPART 70/30 100 UNIT/ML SUBCUT SCH (08:12)
[2019-03-07] MEDS: INSULIN LISPRO 100 UNIT/ML SUBCUT SCH ×4 (08:13→21:24)
[2019-03-07] MEDS: RIVAROXABAN 2.5 MG TABLET PO SCH ×2 (08:14→21:25)
[2019-03-07] MEDS: POLYETHYLENE GLYCOL POWDER 17 GM PACK PO SCH (08:14)
[2019-03-07] MEDS: DOCUSATE SODIUM 100 MG CAPSULE PO SCH (08:18)
[2019-03-07] MEDS: MEROPENEM 500 MG in SYRINGE 1 EACH IV SCH (11:31)
[2019-03-07] MEDS: NEPHRO VITE PO SCH (12:06)
[2019-03-07] MEDS ORDERED: DEXTROSE 50% 25 GM/50 ML VIAL IV PRN (13:13)
[2019-03-07] MEDS ORDERED: GLUCAGON 1 MG VIAL IM PRN (13:13)
[2019-03-07] MEDS ORDERED: POLYETHYLENE GLYCOL POWDER 17 GM PACK PO SCH (21:00)
[2019-03-07] MEDS: ASPIRIN EC 81 MG TABLET PO SCH (21:24)
[2019-03-08] MEDS: SILVER SULFADIAZINE 1% CREAM 25 GM TUBE TOP SCH (00:15)
[2019-03-08] MEDS: ALBUTEROL/IPRATROPIUM 3 ML NEB RESP TX SCH ×7 (00:25→23:52)
[2019-03-08] MEDS: NAFCILLIN 2,000 MG in SODIUM CHLORIDE 0.9% 100 ML IV SCH ×6 (00:30→21:44)
[2019-03-08] MEDS: MIDODRINE 5 MG TABLET PO SCH ×4 (00:37→18:00)
[2019-03-08] MEDS: HYDROCORTISONE 100 MG VIAL IV SCH ×2 (06:04→15:48)
[2019-03-08 08:06] LABS: Basophils # 0.1 10*3/uL (0.0-0.2); Basophils % 0.3 % (0.0-0.8); Eosinophils # 0.3 10*3/uL (0.0-0.87); Eosinophils % 1.9 % (0.00-10.9); Hematocrit 28.5 VOL% (42.0-52.0); Hemoglobin 9.4 GM/DL (14.0-18.0); Immature Granulocytes % 5.6 %; Immature Granulocytes Absolute 0.87 #; Lymphocytes # 0.5 10*3/uL (1.4-4.0); Lymphocytes % 3.4 % (21.2-54.2); Mean Corpuscular Volume 96.9 FL (87-102); Mean Platelet Volume 10.8 FL (9.6-12.0); Monocytes % 6.7 % (1.7-12.7); NRBC # 0.06 10*3/uL; Neutrophils % 82.1 % (38.7-73.9); Platelet Count 200 T/CUMM (130-400); Red Blood Count 2.94 MC/CUMM (3.8-5.5); Red Cell Distribution Width 17.9 % (9.3-17.3); White Blood Count 15.5 T/CUMM (4-12)
[2019-03-08 08:29] LABS: Anisocytosis 1+; Band Neutrophils 2 % (0-10); Eosinophils 3 % (0-10); Lymphocytes 8 % (20-55); Macrocytosis 1+; Platelet Estimate Normal; Segmented Neutrophils 79 % (50-85); Total Cells Counted 100
[2019-03-08 08:30] LABS: Polychromasia Slight
[2019-03-08 08:36] LABS: Calcium 9.8 MG/DL (8.5-10.1); Osmolality,Calculated 297.2 MOS/KG (273-304)
[2019-03-08] MEDS: GABAPENTIN 300 MG CAPSULE PO SCH ×2 (09:52→21:44)
[2019-03-08] MEDS: NEPHRO VITE PO SCH (09:52)
[2019-03-08] MEDS: FLUDROCORTISONE 0.1 MG TABLET PO SCH (09:53)
[2019-03-08] MEDS: LORATADINE 10 MG TABLET PO SCH (09:54)
[2019-03-08] MEDS: INSULIN LISPRO 100 UNIT/ML SUBCUT SCH ×4 (09:55→23:16)
[2019-03-08] MEDS: SEVELAMER CARBONATE 800 MG TABLET PO SCH ×4 (09:55→18:26)
[2019-03-08] MEDS: FAMOTIDINE 20 MG TABLET PO SCH ×2 (09:55→21:44)
[2019-03-08] MEDS: CLOPIDOGREL 75 MG TABLET PO SCH (09:55)
[2019-03-08] MEDS: POLYETHYLENE GLYCOL POWDER 17 GM PACK PO SCH (09:57)
[2019-03-08] MEDS: RIVAROXABAN 2.5 MG TABLET PO SCH ×2 (09:57→21:45)
[2019-03-08] MEDS: MEROPENEM 500 MG in SYRINGE 1 EACH IV SCH (13:32)
[2019-03-08] MEDS: EPOETIN ALFA 10,000 UNIT/1 ML VIAL SUBCUT SCH (14:58)
[2019-03-08] MEDS: ASPIRIN EC 81 MG TABLET PO SCH (21:43)
[2019-03-09] MEDS: SILVER SULFADIAZINE 1% CREAM 25 GM TUBE TOP SCH ×2 (00:36→23:30)
[2019-03-09] MEDS: NAFCILLIN 2,000 MG in SODIUM CHLORIDE 0.9% 100 ML IV SCH ×6 (01:09→22:33)
[2019-03-09] MEDS: MIDODRINE 5 MG TABLET PO SCH ×4 (01:09→18:52)
[2019-03-09] MEDS: ALBUTEROL/IPRATROPIUM 3 ML NEB RESP TX SCH ×6 (03:08→23:43)
[2019-03-09] MEDS: oxyCODONE/ACETAMINOPHEN 5-325 MG TABLET PO PRN ×2 (03:15→19:52)
[2019-03-09 04:47] LABS: Basophils # 0.1 10*3/uL (0.0-0.2); Basophils % 0.4 % (0.0-0.8); Eosinophils # 0.4 10*3/uL (0.0-0.87); Eosinophils % 3.1 % (0.00-10.9); Hematocrit 27.3 VOL% (42.0-52.0); Immature Granulocytes % 4.9 %; Immature Granulocytes Absolute 0.67 #; Lymphocytes % 7.3 % (21.2-54.2); Mean Corpuscular Volume 97.8 FL (87-102); Mean Platelet Volume 10.5 FL (9.6-12.0); Monocytes % 6.6 % (1.7-12.7); NRBC # 0.04 10*3/uL; Neutrophils % 77.7 % (38.7-73.9); Platelet Count 190 T/CUMM (130-400); Red Blood Count 2.79 MC/CUMM (3.8-5.5); Red Cell Distribution Width 17.8 % (9.3-17.3); White Blood Count 13.8 T/CUMM (4-12)
[2019-03-09 05:00] LABS: Calcium 9.4 MG/DL (8.5-10.1)
[2019-03-09] MEDS: HYDROCORTISONE 100 MG VIAL IV SCH ×2 (05:02→15:54)
[2019-03-09 05:21] LABS: Band Neutrophils 6 % (0-10); Eosinophils 2 % (0-10); Hypochromasia Slight; Lymphocytes 7 % (20-55); Platelet Estimate Normal; Segmented Neutrophils 80 % (50-85); Total Cells Counted 100
[2019-03-09] MEDS: SEVELAMER CARBONATE 800 MG TABLET PO SCH ×3 (08:23→16:00)
[2019-03-09] MEDS: INSULIN LISPRO 100 UNIT/ML SUBCUT SCH ×4 (08:23→22:28)
[2019-03-09] MEDS: MEROPENEM 500 MG in SYRINGE 1 EACH IV SCH (11:50)
[2019-03-09] MEDS: FAMOTIDINE 20 MG TABLET PO SCH ×2 (11:51→22:34)
[2019-03-09] MEDS: GABAPENTIN 300 MG CAPSULE PO SCH ×3 (11:52→22:29)
[2019-03-09] MEDS: LORATADINE 10 MG TABLET PO SCH (12:45)
[2019-03-09] MEDS: FLUDROCORTISONE 0.1 MG TABLET PO SCH (12:45)
[2019-03-09] MEDS: NEPHRO VITE PO SCH (12:46)
[2019-03-09] MEDS: CLOPIDOGREL 75 MG TABLET PO SCH (12:46)
[2019-03-09] MEDS ORDERED: LIDOCAINE 1% 20 ML VIAL ONE (12:46)
[2019-03-09] MEDS: RIVAROXABAN 2.5 MG TABLET PO SCH ×2 (12:46→22:34)
[2019-03-09] MEDS: POLYETHYLENE GLYCOL POWDER 17 GM PACK PO SCH (12:46)
[2019-03-09] MEDS ORDERED: ROPIVACAINE 0.5% 30 ML VIAL ONE (13:00)
[2019-03-09] MEDS ORDERED: LACTATED RINGERS 1,000 ML IV SCH (13:30)
[2019-03-09] MEDS ORDERED: SODIUM CHLORIDE 0.9% 250 ML IV SCH (13:30)
[2019-03-09] MEDS ORDERED: DEXTROSE 50% 25 GM/50 ML VIAL IV PRN (14:17)
[2019-03-09] MEDS ORDERED: MIDAZOLAM 2 MG/2 ML VIAL ONE (14:26)
[2019-03-09] MEDS ORDERED: fentaNYL 100 MCG/2 ML VIAL ONE (14:27)
[2019-03-09] MEDS: METOPROLOL TARTRATE 25 MG TABLET PO SCH (22:30)
[2019-03-09] MEDS: ASPIRIN EC 81 MG TABLET PO SCH (22:30)
[2019-03-10] MEDS: MIDODRINE 5 MG TABLET PO SCH ×5 (00:09→23:49)
[2019-03-10] MEDS: NAFCILLIN 2,000 MG in SODIUM CHLORIDE 0.9% 100 ML IV SCH ×4 (00:31→15:24)
[2019-03-10] MEDS: ALBUTEROL/IPRATROPIUM 3 ML NEB RESP TX SCH (04:37)
[2019-03-10] MEDS: HYDROCORTISONE 100 MG VIAL IV SCH ×2 (05:06→15:27)
[2019-03-10 05:32] LABS: Basophils # 0.1 10*3/uL (0.0-0.2); Basophils % 0.3 % (0.0-0.8); Eosinophils # 0.7 10*3/uL (0.0-0.87); Eosinophils % 4.2 % (0.00-10.9); Hematocrit 28.1 VOL% (42.0-52.0); Immature Granulocytes % 4.8 %; Immature Granulocytes Absolute 0.75 #; Lymphocytes # 1.1 10*3/uL (1.4-4.0); Lymphocytes % 6.8 % (21.2-54.2); Mean Corpuscular Volume 98.9 FL (87-102); Mean Platelet Volume 10.5 FL (9.6-12.0); Monocytes % 7.1 % (1.7-12.7); NRBC # 0.03 10*3/uL; Neutrophils % 76.8 % (38.7-73.9); Platelet Count 190 T/CUMM (130-400); Red Blood Count 2.84 MC/CUMM (3.8-5.5); Red Cell Distribution Width 17.7 % (9.3-17.3); White Blood Count 15.5 T/CUMM (4-12)
[2019-03-10 05:55] LABS: Calcium 9.2 MG/DL (8.5-10.1); Osmolality,Calculated 298.8 MOS/KG (273-304)
[2019-03-10] MEDS: oxyCODONE/ACETAMINOPHEN 5-325 MG TABLET PO PRN ×2 (05:55→15:23)
[2019-03-10 05:58] LABS: Band Neutrophils 2 % (0-10); Eosinophils 6 % (0-10); Lymphocytes 2 % (20-55); Platelet Estimate Adequate; Segmented Neutrophils 86 % (50-85); Total Cells Counted 100
[2019-03-10 06:00] LABS: Hypochromasia 1+
[2019-03-10] MEDS: EPOETIN ALFA 10,000 UNIT/1 ML VIAL SUBCUT SCH (08:26)
[2019-03-10] MEDS: METOPROLOL TARTRATE 25 MG TABLET PO SCH ×2 (08:28→21:20)
[2019-03-10] MEDS: FAMOTIDINE 20 MG TABLET PO SCH ×2 (08:29→21:21)
[2019-03-10] MEDS: SEVELAMER CARBONATE 800 MG TABLET PO SCH ×3 (08:29→17:12)
[2019-03-10] MEDS: LORATADINE 10 MG TABLET PO SCH (08:30)
[2019-03-10] MEDS: FLUDROCORTISONE 0.1 MG TABLET PO SCH (08:31)
[2019-03-10] MEDS: GABAPENTIN 300 MG CAPSULE PO SCH ×2 (08:31→21:20)
[2019-03-10] MEDS: RIVAROXABAN 2.5 MG TABLET PO SCH ×2 (08:31→21:21)
[2019-03-10] MEDS: CLOPIDOGREL 75 MG TABLET PO SCH (08:32)
[2019-03-10] MEDS: POTASSIUM CHLORIDE 20 MEQ TABLET PO PRN ×3 (08:32→17:13)
[2019-03-10] MEDS: POLYETHYLENE GLYCOL POWDER 17 GM PACK PO SCH (08:40)
[2019-03-10] MEDS: INSULIN LISPRO 100 UNIT/ML SUBCUT SCH ×4 (08:40→21:20)
[2019-03-10] MEDS: NEPHRO VITE PO SCH (08:44)
[2019-03-10] MEDS: MEROPENEM 500 MG in SYRINGE 1 EACH IV SCH (11:53)
[2019-03-10] MEDS: VANCOMYCIN 50 MG/ML 60 ML/BOTTLE PO SCH ×2 (17:12→23:49)
[2019-03-10] MEDS: ASPIRIN EC 81 MG TABLET PO SCH (21:20)
[2019-03-10] MEDS: SILVER SULFADIAZINE 1% CREAM 25 GM TUBE TOP SCH (21:21)
[2019-03-11] MEDS: HYDROCORTISONE 100 MG VIAL IV SCH (04:49)
[2019-03-11] MEDS: MIDODRINE 5 MG TABLET PO SCH ×3 (06:14→18:31)
[2019-03-11] MEDS: VANCOMYCIN 50 MG/ML 60 ML/BOTTLE PO SCH ×3 (06:14→18:32)
[2019-03-11 08:43] LABS: Hematocrit 26.6 VOL% (42.0-52.0); Hemoglobin 8.5 GM/DL (14.0-18.0)
[2019-03-11 09:00] LABS: Calcium 9.1 MG/DL (8.5-10.1); Osmolality,Calculated 296.1 MOS/KG (273-304)
[2019-03-11] MEDS: FLUDROCORTISONE 0.1 MG TABLET PO SCH (09:45)
[2019-03-11] MEDS: SEVELAMER CARBONATE 800 MG TABLET PO SCH ×3 (09:45→18:31)
[2019-03-11] MEDS: METOPROLOL TARTRATE 25 MG TABLET PO SCH ×2 (09:45→21:10)
[2019-03-11] MEDS: GABAPENTIN 300 MG CAPSULE PO SCH ×2 (09:45→21:10)
[2019-03-11] MEDS: RIVAROXABAN 2.5 MG TABLET PO SCH ×2 (09:46→21:11)
[2019-03-11] MEDS: LORATADINE 10 MG TABLET PO SCH (09:46)
[2019-03-11] MEDS: INSULIN LISPRO 100 UNIT/ML SUBCUT SCH ×4 (09:46→21:11)
[2019-03-11] MEDS: NEPHRO VITE PO SCH (09:46)
[2019-03-11] MEDS: FAMOTIDINE 20 MG TABLET PO SCH (09:46)
[2019-03-11] MEDS: CLOPIDOGREL 75 MG TABLET PO SCH (09:46)
[2019-03-11] MEDS: oxyCODONE/ACETAMINOPHEN 5-325 MG TABLET PO PRN ×2 (09:54→19:16)
[2019-03-11] MEDS: POLYETHYLENE GLYCOL POWDER 17 GM PACK PO SCH (10:01)
[2019-03-11] MEDS: MEROPENEM 500 MG in SYRINGE 1 EACH IV SCH (13:16)
[2019-03-11 18:42] LABS: Hematocrit 28.7 VOL% (42.0-52.0)
[2019-03-11] MEDS ORDERED: VANCOMYCIN INJ 1,250 MG in SODIUM CHLORIDE 0.9% 250 ML IV PRN (21:00)
[2019-03-11] MEDS ORDERED: VANCOMYCIN INJ 1,250 MG in SODIUM CHLORIDE 0.9% 250 ML IV ONE (21:00)
[2019-03-11] MEDS: PANTOPRAZOLE 40 MG VIAL IV SCH (21:09)
[2019-03-11] MEDS: ASPIRIN EC 81 MG TABLET PO SCH (21:10)
[2019-03-11] MEDS: SILVER SULFADIAZINE 1% CREAM 25 GM TUBE TOP SCH (21:11)
[2019-03-12] MEDS: MIDODRINE 5 MG TABLET PO SCH ×4 (00:39→19:58)
[2019-03-12] MEDS: VANCOMYCIN 50 MG/ML 60 ML/BOTTLE PO SCH ×4 (00:39→19:58)
[2019-03-12 05:53] LABS: Basophils % 0.3 % (0.0-0.8); Eosinophils # 0.6 10*3/uL (0.0-0.87); Hematocrit 23.5 VOL% (42.0-52.0); Hemoglobin 7.4 GM/DL (14.0-18.0); Immature Granulocytes % 3.7 %; Immature Granulocytes Absolute 0.54 #; Lymphocytes # 1.3 10*3/uL (1.4-4.0); Lymphocytes % 8.9 % (21.2-54.2); Mean Corpuscular HGB Conc 31.5 GM/DL (32-36); Mean Corpuscular Volume 100.9 FL (87-102); Mean Platelet Volume 11.2 FL (9.6-12.0); Monocytes % 9.2 % (1.7-12.7); NRBC # 0.07 10*3/uL; Neutrophils % 73.9 % (38.7-73.9); Platelet Count 176 T/CUMM (130-400); Red Blood Count 2.33 MC/CUMM (3.8-5.5); Red Cell Distribution Width 17.8 % (9.3-17.3); White Blood Count 14.6 T/CUMM (4-12)
[2019-03-12 06:22] LABS: Calcium 8.3 MG/DL (8.5-10.1); Osmolality,Calculated 297.7 MOS/KG (273-304)
[2019-03-12 06:32] LABS: Anisocytosis 1+; Eosinophils 4 % (0-10); Hypochromasia 1+; Lymphocytes 11 % (20-55); Microcytosis 1+; Ovalocytes 1+; Platelet Estimate Adequate; Polychromasia 1+; Segmented Neutrophils 80 % (50-85); Total Cells Counted 100
[2019-03-12] MEDS: oxyCODONE/ACETAMINOPHEN 5-325 MG TABLET PO PRN ×2 (08:56→16:00)
[2019-03-12] MEDS: SEVELAMER CARBONATE 800 MG TABLET PO SCH ×3 (08:57→19:57)
[2019-03-12] MEDS: FLUDROCORTISONE 0.1 MG TABLET PO SCH (10:36)
[2019-03-12] MEDS: LORATADINE 10 MG TABLET PO SCH (10:37)
[2019-03-12] MEDS: predniSONE 50 MG TABLET PO SCH (10:37)
[2019-03-12] MEDS: CLOPIDOGREL 75 MG TABLET PO SCH (10:37)
[2019-03-12] MEDS: METOPROLOL TARTRATE 25 MG TABLET PO SCH ×2 (10:38→22:34)
[2019-03-12] MEDS: PANTOPRAZOLE 40 MG VIAL IV SCH ×2 (10:39→22:33)
[2019-03-12] MEDS: POLYETHYLENE GLYCOL POWDER 17 GM PACK PO SCH (10:40)
[2019-03-12] MEDS: INSULIN LISPRO 100 UNIT/ML SUBCUT SCH ×4 (11:01→22:33)
[2019-03-12] MEDS: GABAPENTIN 300 MG CAPSULE PO SCH ×2 (11:02→22:34)
[2019-03-12] MEDS: NEPHRO VITE PO SCH (11:02)
[2019-03-12] MEDS: RIVAROXABAN 2.5 MG TABLET PO SCH ×2 (11:02→22:37)
[2019-03-12] MEDS: EPOETIN ALFA 10,000 UNIT/1 ML VIAL SUBCUT SCH (12:30)
[2019-03-12] MEDS: MEROPENEM 500 MG in SYRINGE 1 EACH IV SCH (12:58)
[2019-03-12 16:19] LABS: Hematocrit 25.4 VOL% (42.0-52.0)
[2019-03-12] MEDS ORDERED: NAFCILLIN 2,000 MG in SODIUM CHLORIDE 0.9% 100 ML IV SCH (17:00)
[2019-03-12] MEDS ORDERED: HYDROmorphone 2 MG/1 ML VIAL IV ONE (17:21)
[2019-03-12 17:42] LABS: Allen Test Positive
[2019-03-12] MEDS: ALPRAZolam 0.25 MG TABLET PO PRN ×2 (17:45→22:34)
[2019-03-12 17:47] LABS: ABG Base Excess -2.1 MMOL/L (-2.5-2.5); ABG HCO3 22.6 MMOL/L (20-26); ABG Oxygen Saturation 96.2 % (95-100); ABG PCO2 29.3 MM HG (35-48); ABG PH 7.463 (7.35-7.45); ABG PO2 71.7 MM HG (80-95); ABG TCO2 19.3 MMOL/L (23-27)
[2019-03-12] MEDS ORDERED: VANCOMYCIN 50 MG/ML 60 ML/BOTTLE PO SCH ×2 (18:00→19:42)
[2019-03-12] MEDS ORDERED: METOPROLOL TARTRATE 5 MG/5 ML VIAL IV PRN (18:55)
[2019-03-12] MEDS: NAFCILLIN 2,000 MG in SODIUM CHLORIDE 0.9% 100 ML IV SCH ×2 (19:58→22:35)
[2019-03-12] MEDS: HYDROmorphone 2 MG/1 ML VIAL IV PRN (20:00)
[2019-03-12] MEDS ORDERED: SULFAMETHOX/TRIMETHOPRIM 800-160 MG TABLET PO SCH (21:00)
[2019-03-12] MEDS: ASPIRIN EC 81 MG TABLET PO SCH (22:33)
[2019-03-12] MEDS: SILVER SULFADIAZINE 1% CREAM 25 GM TUBE TOP SCH (22:37)
[2019-03-13] MEDS: VANCOMYCIN 50 MG/ML 60 ML/BOTTLE PO SCH ×4 (01:38→21:23)
[2019-03-13] MEDS: MIDODRINE 5 MG TABLET PO SCH ×4 (01:38→17:17)
[2019-03-13] MEDS: NAFCILLIN 2,000 MG in SODIUM CHLORIDE 0.9% 100 ML IV SCH ×6 (01:38→21:30)
[2019-03-13 03:15] LABS: Basophils % 0.1 % (0.0-0.8); Eosinophils # 0.6 10*3/uL (0.0-0.87); Eosinophils % 3.8 % (0.00-10.9); Hematocrit 23.6 VOL% (42.0-52.0); Hemoglobin 7.5 GM/DL (14.0-18.0); Immature Granulocytes Absolute 0.46 #; Lymphocytes # 0.7 10*3/uL (1.4-4.0); Lymphocytes % 4.6 % (21.2-54.2); Mean Corpuscular HGB Conc 31.8 GM/DL (32-36); Mean Corpuscular Volume 102.6 FL (87-102); Mean Platelet Volume 10.6 FL (9.6-12.0); Monocytes % 3.6 % (1.7-12.7); NRBC # 0.02 10*3/uL; Neutrophils % 84.9 % (38.7-73.9); Platelet Count 170 T/CUMM (130-400); Red Cell Distribution Width 18.1 % (9.3-17.3); White Blood Count 15.4 T/CUMM (4-12)
[2019-03-13 03:41] LABS: Calcium 8.5 MG/DL (8.5-10.1); Osmolality,Calculated 296.8 MOS/KG (273-304)
[2019-03-13 04:02] LABS: Anisocytosis 1+; Band Neutrophils 3 % (0-10); Eosinophils 6 % (0-10); Lymphocytes 2 % (20-55); Segmented Neutrophils 87 % (50-85); Total Cells Counted 100
[2019-03-13 04:03] LABS: Macrocytosis Slight; Platelet Estimate Normal
[2019-03-13] MEDS: oxyCODONE/ACETAMINOPHEN 5-325 MG TABLET PO PRN (04:05)
[2019-03-13] MEDS: INSULIN LISPRO 100 UNIT/ML SUBCUT SCH ×4 (08:30→21:17)
[2019-03-13] MEDS: PANTOPRAZOLE 40 MG VIAL IV SCH ×2 (08:31→21:23)
[2019-03-13] MEDS: GABAPENTIN 300 MG CAPSULE PO SCH ×2 (08:32→21:17)
[2019-03-13] MEDS: FLUDROCORTISONE 0.1 MG TABLET PO SCH (08:32)
[2019-03-13] MEDS: SEVELAMER CARBONATE 800 MG TABLET PO SCH ×3 (08:32→17:18)
[2019-03-13] MEDS: POTASSIUM CHLORIDE 20 MEQ TABLET PO PRN (08:32)
[2019-03-13] MEDS: METOPROLOL TARTRATE 25 MG TABLET PO SCH ×2 (08:33→21:17)
[2019-03-13] MEDS: LORATADINE 10 MG TABLET PO SCH (08:33)
[2019-03-13] MEDS: POLYETHYLENE GLYCOL POWDER 17 GM PACK PO SCH (08:34)
[2019-03-13] MEDS: CLOPIDOGREL 75 MG TABLET PO SCH (08:34)
[2019-03-13] MEDS: NEPHRO VITE PO SCH (08:41)
[2019-03-13] MEDS: predniSONE 50 MG TABLET PO SCH (08:41)
[2019-03-13] MEDS: RIVAROXABAN 2.5 MG TABLET PO SCH (08:41)
[2019-03-13] MEDS ORDERED: SODIUM CHLORIDE 0.9% 1,000 ML IV PRN (08:47)
[2019-03-13] MEDS ORDERED: predniSONE 20 MG TABLET PO SCH (09:06)
[2019-03-13] MEDS ORDERED: FUROSEMIDE 40 MG/4 ML VIAL IV ONE (11:16)
[2019-03-13] MEDS: SUCRALFATE 1 GM TABLET PO SCH ×3 (12:29→21:17)
[2019-03-13] MEDS: ALBUTEROL/IPRATROPIUM 3 ML NEB RESP TX SCH ×2 (12:34→12:46)
[2019-03-13] MEDS: ACETAMINOPHEN 325 MG TABLET PO PRN ×2 (13:43→23:50)
[2019-03-13 16:20] LABS: Hematocrit 25.7 VOL% (42.0-52.0); Hemoglobin 8.3 GM/DL (14.0-18.0)
[2019-03-13 21:00] LABS: Hematocrit 26.9 VOL% (42.0-52.0); Hemoglobin 8.6 GM/DL (14.0-18.0)
[2019-03-13] MEDS: ASPIRIN EC 81 MG TABLET PO SCH (21:17)
[2019-03-13] MEDS: SILVER SULFADIAZINE 1% CREAM 25 GM TUBE TOP SCH (21:18)
[2019-03-14] MEDS: MIDODRINE 5 MG TABLET PO SCH ×5 (00:31→23:56)
[2019-03-14 01:09] LABS: Calcium 8.2 MG/DL (8.5-10.1); Osmolality,Calculated 296.8 MOS/KG (273-304)
[2019-03-14 01:15] LABS: Basophils % 0.2 % (0.0-0.8); Hematocrit 26.7 VOL% (42.0-52.0); Hemoglobin 8.7 GM/DL (14.0-18.0); Immature Granulocytes Absolute 0.38 #; Lymphocytes # 0.7 10*3/uL (1.4-4.0); Lymphocytes % 5.8 % (21.2-54.2); Mean Corpuscular HGB Conc 32.6 GM/DL (32-36); Mean Corpuscular Volume 99.3 FL (87-102); Mean Platelet Volume 11.1 FL (9.6-12.0); Monocytes % 6.5 % (1.7-12.7); NRBC # 0.04 10*3/uL; Neutrophils % 76.5 % (38.7-73.9); Platelet Count 188 T/CUMM (130-400); Red Blood Count 2.69 MC/CUMM (3.8-5.5); Red Cell Distribution Width 19.6 % (9.3-17.3); White Blood Count 12.8 T/CUMM (4-12)
[2019-03-14 02:37] LABS: Eosinophils 3 % (0-10); Lymphocytes 7 % (20-55); Nucleated Red Blood Cells 1 (0-5); Platelet Estimate Normal; Segmented Neutrophils 83 % (50-85); Total Cells Counted 100
[2019-03-14 03:09] LABS: Hemoglobin 8.7 GM/DL (14.0-18.0)
[2019-03-14] MEDS: NAFCILLIN 2,000 MG in SODIUM CHLORIDE 0.9% 100 ML IV SCH ×6 (03:50→22:40)
[2019-03-14] MEDS: VANCOMYCIN 50 MG/ML 60 ML/BOTTLE PO SCH ×4 (03:50→22:32)
[2019-03-14] MEDS: GABAPENTIN 300 MG CAPSULE PO SCH ×2 (08:13→22:31)
[2019-03-14] MEDS: SUCRALFATE 1 GM TABLET PO SCH ×4 (08:13→22:32)
[2019-03-14] MEDS: INSULIN LISPRO 100 UNIT/ML SUBCUT SCH ×4 (08:13→20:58)
[2019-03-14] MEDS: FLUDROCORTISONE 0.1 MG TABLET PO SCH (08:13)
[2019-03-14] MEDS: PANTOPRAZOLE 40 MG VIAL IV SCH ×2 (08:14→22:34)
[2019-03-14] MEDS: SEVELAMER CARBONATE 800 MG TABLET PO SCH ×3 (08:14→16:32)
[2019-03-14] MEDS: LORATADINE 10 MG TABLET PO SCH (08:15)
[2019-03-14] MEDS: METOPROLOL TARTRATE 25 MG TABLET PO SCH ×2 (08:15→22:30)
[2019-03-14] MEDS: POLYETHYLENE GLYCOL POWDER 17 GM PACK PO SCH (08:15)
[2019-03-14] MEDS: NEPHRO VITE PO SCH (08:30)
[2019-03-14 10:02] LABS: Hematocrit 29.3 VOL% (42.0-52.0); Hemoglobin 9.4 GM/DL (14.0-18.0)
[2019-03-14] MEDS: oxyCODONE/ACETAMINOPHEN 5-325 MG TABLET PO PRN (15:05)
[2019-03-14 15:38] LABS: Hematocrit 31.8 VOL% (42.0-52.0); Hemoglobin 9.8 GM/DL (14.0-18.0)
[2019-03-14] MEDS: ASPIRIN EC 81 MG TABLET PO SCH (22:29)
[2019-03-14] MEDS: SILVER SULFADIAZINE 1% CREAM 25 GM TUBE TOP SCH (23:55)
[2019-03-15] MEDS: NAFCILLIN 2,000 MG in SODIUM CHLORIDE 0.9% 100 ML IV SCH ×6 (03:06→22:07)
[2019-03-15] MEDS: VANCOMYCIN 50 MG/ML 60 ML/BOTTLE PO SCH ×4 (03:10→19:47)
[2019-03-15] MEDS: MIDODRINE 5 MG TABLET PO SCH ×3 (06:33→18:30)
[2019-03-15] MEDS: PANTOPRAZOLE 40 MG VIAL IV SCH ×2 (10:10→21:57)
[2019-03-15] MEDS: POLYETHYLENE GLYCOL POWDER 17 GM PACK PO SCH (10:10)
[2019-03-15] MEDS: EPOETIN ALFA 10,000 UNIT/1 ML VIAL SUBCUT SCH (10:11)
[2019-03-15] MEDS: GABAPENTIN 300 MG CAPSULE PO SCH ×2 (10:13→21:20)
[2019-03-15] MEDS: INSULIN LISPRO 100 UNIT/ML SUBCUT SCH ×4 (10:13→21:21)
[2019-03-15] MEDS: FLUDROCORTISONE 0.1 MG TABLET PO SCH (10:14)
[2019-03-15] MEDS: SEVELAMER CARBONATE 800 MG TABLET PO SCH ×3 (10:14→18:36)
[2019-03-15] MEDS: SUCRALFATE 1 GM TABLET PO SCH ×4 (10:14→21:20)
[2019-03-15] MEDS: METOPROLOL TARTRATE 25 MG TABLET PO SCH ×2 (10:14→21:20)
[2019-03-15] MEDS: LORATADINE 10 MG TABLET PO SCH (10:14)
[2019-03-15] MEDS: predniSONE 20 MG TABLET PO SCH (10:15)
[2019-03-15] MEDS: ROSUVASTATIN 20 MG TABLET PO SCH (12:37)
[2019-03-15] MEDS: NEPHRO VITE PO SCH (12:44)
[2019-03-15] MEDS ORDERED: diphenhydrAMINE CAP 25 MG CAPSULE PO PRN (15:25)
[2019-03-15] MEDS ORDERED: NITROGLYCERIN SL 0.4 MG TABLET SL PRN (15:25)
[2019-03-15] MEDS ORDERED: ACETAMINOPHEN 325 MG TABLET PO PRN (15:25)
[2019-03-15] MEDS ORDERED: [UNRECOGNIZED DRUG - OTHER] MISC SCH (15:30)
[2019-03-15] MEDS: oxyCODONE/ACETAMINOPHEN 5-325 MG TABLET PO PRN (18:29)
[2019-03-15] MEDS ORDERED: [UNRECOGNIZED DRUG - OTHER] PO SCH (21:00)
[2019-03-15] MEDS ORDERED: VITAMIN C PO SCH (21:00)
[2019-03-15] MEDS ORDERED: [UNRECOGNIZED DRUG - OTHER] PO SCH (21:00)
[2019-03-15] MEDS: ASPIRIN EC 81 MG TABLET PO SCH ×2 (21:20→21:57)
[2019-03-15] MEDS: MIDODRINE 2.5 MG TABLET PO SCH (21:20)
[2019-03-15] MEDS: PANTOPRAZOLE 40 MG TABLET PO SCH (21:21)
[2019-03-15] MEDS: SILVER SULFADIAZINE 1% CREAM 25 GM TUBE TOP SCH (22:25)
[2019-03-15 23:07] LABS: Basophils % 0.3 % (0.0-0.8); Eosinophils # 2.4 10*3/uL (0.0-0.87); Hematocrit 29.3 VOL% (42.0-52.0); Hemoglobin 9.3 GM/DL (14.0-18.0); Immature Granulocytes % 1.3 %; Immature Granulocytes Absolute 0.17 #; Lymphocytes # 1.2 10*3/uL (1.4-4.0); Lymphocytes % 9.1 % (21.2-54.2); Mean Corpuscular HGB Conc 31.7 GM/DL (32-36); Mean Corpuscular Volume 100.3 FL (87-102); Mean Platelet Volume 10.6 FL (9.6-12.0); Monocytes % 7.4 % (1.7-12.7); NRBC # 0.02 10*3/uL; Neutrophils % 63.9 % (38.7-73.9); Platelet Count 170 T/CUMM (130-400); Red Blood Count 2.92 MC/CUMM (3.8-5.5); Red Cell Distribution Width 19.7 % (9.3-17.3); White Blood Count 13.6 T/CUMM (4-12)
[2019-03-15 23:45] LABS: Calcium 8.3 MG/DL (8.5-10.1); Osmolality,Calculated 303.5 MOS/KG (273-304)
[2019-03-16 00:01] LABS: Eosinophils 20 % (0-10); Lymphocytes 6 % (20-55); Segmented Neutrophils 67 % (50-85); Total Cells Counted 100
[2019-03-16 00:03] LABS: Anisocytosis 1+; Ovalocytes 1+; Platelet Estimate Normal; Polychromasia 1+
[2019-03-16] MEDS: MIDODRINE 5 MG TABLET PO SCH ×4 (01:07→17:31)
[2019-03-16] MEDS: VANCOMYCIN 50 MG/ML 60 ML/BOTTLE PO SCH ×4 (01:52→20:52)
[2019-03-16] MEDS: NAFCILLIN 2,000 MG in SODIUM CHLORIDE 0.9% 100 ML IV SCH ×6 (01:53→22:15)
[2019-03-16 05:38] LABS: Basophils # 0.1 10*3/uL (0.0-0.2); Basophils % 0.4 % (0.0-0.8); Eosinophils # 2.7 10*3/uL (0.0-0.87); Eosinophils % 22.8 % (0.00-10.9); Hematocrit 27.6 VOL% (42.0-52.0); Hemoglobin 8.9 GM/DL (14.0-18.0); Immature Granulocytes % 1.1 %; Immature Granulocytes Absolute 0.13 #; Lymphocytes # 1.2 10*3/uL (1.4-4.0); Lymphocytes % 10.3 % (21.2-54.2); Mean Corpuscular HGB Conc 32.2 GM/DL (32-36); Mean Corpuscular Volume 99.6 FL (87-102); Mean Platelet Volume 10.9 FL (9.6-12.0); Monocytes % 6.1 % (1.7-12.7); NRBC # 0.02 10*3/uL; Neutrophils % 59.3 % (38.7-73.9); Platelet Count 153 T/CUMM (130-400); Red Blood Count 2.77 MC/CUMM (3.8-5.5); Red Cell Distribution Width 19.7 % (9.3-17.3); White Blood Count 11.7 T/CUMM (4-12)
[2019-03-16 06:15] LABS: Eosinophils 22 % (0-10); Hypochromasia 1+; Lymphocytes 15 % (20-55); Polychromasia Slight; Segmented Neutrophils 61 % (50-85); Total Cells Counted 100
[2019-03-16 06:16] LABS: Macrocytosis 1+; Platelet Estimate Adequate
[2019-03-16] MEDS: FAMOTIDINE 20 MG TABLET PO ONE ×2 (06:28→06:36)
[2019-03-16] MEDS ORDERED: KRILL OM DHA EPA PHOSPHO AST PO SCH (09:00)
[2019-03-16] MEDS ORDERED: ROPIVACAINE 0.5% 30 ML VIAL ONE (09:26)
[2019-03-16] MEDS ORDERED: SCOPOLAMINE 1.5 MG PATCH TRANSDERM ONE ×2 (09:26→09:37)
[2019-03-16] MEDS ORDERED: LACTATED RINGERS 1,000 ML IV SCH (09:30)
[2019-03-16] MEDS ORDERED: PROPOFOL 500 MG/50 ML BOTTLE IV ONE (09:55)
[2019-03-16] MEDS: INSULIN LISPRO 100 UNIT/ML SUBCUT SCH ×4 (10:39→21:25)
[2019-03-16] MEDS: SUCRALFATE 1 GM TABLET PO SCH ×4 (10:39→20:53)
[2019-03-16] MEDS: SEVELAMER CARBONATE 800 MG TABLET PO SCH ×3 (10:39→17:21)
[2019-03-16] MEDS: POLYETHYLENE GLYCOL POWDER 17 GM PACK PO SCH (10:40)
[2019-03-16] MEDS: LORATADINE 10 MG TABLET PO SCH (10:40)
[2019-03-16] MEDS: ROSUVASTATIN 20 MG TABLET PO SCH (10:40)
[2019-03-16] MEDS: FLUDROCORTISONE 0.1 MG TABLET PO SCH (10:40)
[2019-03-16] MEDS: METOPROLOL TARTRATE 25 MG TABLET PO SCH ×2 (10:40→20:53)
[2019-03-16] MEDS: PANTOPRAZOLE 40 MG VIAL IV SCH ×2 (10:41→20:54)
[2019-03-16] MEDS: MIDODRINE 2.5 MG TABLET PO SCH ×2 (10:41→20:53)
[2019-03-16] MEDS: predniSONE 20 MG TABLET PO SCH (10:41)
[2019-03-16] MEDS: GABAPENTIN 300 MG CAPSULE PO SCH ×2 (10:41→20:53)
[2019-03-16] MEDS: PANTOPRAZOLE 40 MG TABLET PO SCH ×2 (10:42→20:54)
[2019-03-16] MEDS ORDERED: MIDAZOLAM 2 MG/2 ML VIAL ONE (11:22)
[2019-03-16] MEDS ORDERED: PROPOFOL 200 MG/20 ML VIAL IV ONE (11:22)
[2019-03-16] MEDS ORDERED: ePHEDrine 50 MG/ML AMP ONE (11:23)
[2019-03-16] MEDS ORDERED: ONDANSETRON 4 MG/2 ML VIAL ONE (11:23)
[2019-03-16] MEDS ORDERED: PHENYLEPHRINE 1 MG/10 ML SYRINGE IV ONE (11:23)
[2019-03-16] MEDS ORDERED: fentaNYL 100 MCG/2 ML VIAL ONE (11:23)
[2019-03-16] MEDS ORDERED: SODIUM CHLORIDE 0.9% 500 ML IV SCH (12:15)
[2019-03-16] MEDS: HYDROmorphone 2 MG/1 ML VIAL IV PRN ×2 (14:52→21:15)
[2019-03-16] MEDS ORDERED: DEXTROSE 10% 250 ML BAG IV PRN (18:29)
[2019-03-16] MEDS ORDERED: GLUCAGON 1 MG VIAL IM PRN (18:29)
[2019-03-16] MEDS: ASPIRIN EC 81 MG TABLET PO SCH ×2 (20:52→20:53)
[2019-03-16] MEDS: SILVER SULFADIAZINE 1% CREAM 25 GM TUBE TOP SCH (21:25)
[2019-03-17] MEDS: MIDODRINE 5 MG TABLET PO SCH ×4 (00:22→17:22)
[2019-03-17] MEDS: HYDROmorphone 2 MG/1 ML VIAL IV PRN ×5 (02:07→22:14)
[2019-03-17] MEDS: VANCOMYCIN 50 MG/ML 60 ML/BOTTLE PO SCH ×3 (02:10→14:23)
[2019-03-17] MEDS: NAFCILLIN 2,000 MG in SODIUM CHLORIDE 0.9% 100 ML IV SCH ×3 (02:10→09:51)
[2019-03-17] MEDS: oxyCODONE/ACETAMINOPHEN 5-325 MG TABLET PO PRN ×2 (03:57→10:19)
[2019-03-17] MEDS: SUCRALFATE 1 GM TABLET PO SCH ×4 (08:41→22:30)
[2019-03-17] MEDS ORDERED: GARLIC 1000 MG PO SCH (09:00)
[2019-03-17] MEDS: INSULIN LISPRO 100 UNIT/ML SUBCUT SCH ×4 (09:39→21:40)
[2019-03-17] MEDS: GABAPENTIN 300 MG CAPSULE PO SCH ×2 (09:41→22:28)
[2019-03-17] MEDS: SEVELAMER CARBONATE 800 MG TABLET PO SCH ×3 (09:41→17:23)
[2019-03-17] MEDS: ROSUVASTATIN 20 MG TABLET PO SCH (09:41)
[2019-03-17] MEDS: FLUDROCORTISONE 0.1 MG TABLET PO SCH (09:42)
[2019-03-17] MEDS: PANTOPRAZOLE 40 MG TABLET PO SCH ×2 (09:42→22:28)
[2019-03-17] MEDS: MIDODRINE 2.5 MG TABLET PO SCH ×2 (09:42→22:29)
[2019-03-17] MEDS: METOPROLOL TARTRATE 25 MG TABLET PO SCH ×2 (09:42→22:28)
[2019-03-17] MEDS: predniSONE 20 MG TABLET PO SCH (09:42)
[2019-03-17] MEDS: LORATADINE 10 MG TABLET PO SCH (09:42)
[2019-03-17] MEDS: PANTOPRAZOLE 40 MG VIAL IV SCH (09:54)
[2019-03-17] MEDS: EPOETIN ALFA 10,000 UNIT/1 ML VIAL SUBCUT SCH (09:54)
[2019-03-17] MEDS: POLYETHYLENE GLYCOL POWDER 17 GM PACK PO SCH (09:54)
[2019-03-17] MEDS ORDERED: CLINDAMYCIN INJ 300 MG in PREMIX 1 EACH IV SCH (11:00)
[2019-03-17] MEDS: CLINDAMYCIN INJ 300 MG in PREMIX 1 EACH IV SCH (12:25)
[2019-03-17 13:10] LABS: Basophils % 0.1 % (0.0-0.8); Eosinophils % 17.6 % (0.00-10.9); Hematocrit 23.3 VOL% (42.0-52.0); Hemoglobin 7.3 GM/DL (14.0-18.0); Immature Granulocytes % 0.9 %; Lymphocytes # 0.6 10*3/uL (1.4-4.0); Mean Corpuscular HGB Conc 31.3 GM/DL (32-36); Mean Corpuscular Volume 102.6 FL (87-102); Monocytes % 1.6 % (1.7-12.7); NRBC # 0.02 10*3/uL; Neutrophils % 74.8 % (38.7-73.9); Platelet Count 118 T/CUMM (130-400); Red Blood Count 2.27 MC/CUMM (3.8-5.5); Red Cell Distribution Width 19.8 % (9.3-17.3); White Blood Count 11.6 T/CUMM (4-12)
[2019-03-17 13:21] LABS: Calcium 7.5 MG/DL (8.5-10.1); Osmolality,Calculated 294.8 MOS/KG (273-304)
[2019-03-17 13:40] LABS: Band Neutrophils 1 % (0-10); Eosinophils 13 % (0-10); Lymphocytes 4 % (20-55); Nucleated Red Blood Cells 1 (0-5); Platelet Estimate Normal; Segmented Neutrophils 80 % (50-85); Total Cells Counted 100
[2019-03-17 13:41] LABS: Macrocytosis 1+; Polychromasia 1+
[2019-03-17] MEDS: MAGNESIUM SULF RIDER 2 GM in PREMIX 1 EACH IV PRN (17:16)
[2019-03-17] MEDS: POTASSIUM CHLORIDE 20 MEQ TABLET PO PRN ×2 (17:23→22:28)
[2019-03-17] MEDS: ASPIRIN EC 81 MG TABLET PO SCH ×2 (22:28)
[2019-03-18] MEDS: SILVER SULFADIAZINE 1% CREAM 25 GM TUBE TOP SCH ×2 (00:23→22:13)
[2019-03-18] MEDS: DULoxetine 20 MG CAPSULE PO SCH ×2 (00:23→20:55)
[2019-03-18] MEDS: POTASSIUM CHLORIDE 20 MEQ TABLET PO PRN ×4 (00:44→14:31)
[2019-03-18] MEDS: MIDODRINE 5 MG TABLET PO SCH ×4 (00:44→17:46)
[2019-03-18] MEDS: VANCOMYCIN 50 MG/ML 60 ML/BOTTLE PO SCH ×4 (00:46→18:22)
[2019-03-18] MEDS: HYDROmorphone 2 MG/1 ML VIAL IV PRN ×3 (03:37→21:22)
[2019-03-18] MEDS: CLINDAMYCIN INJ 300 MG in PREMIX 1 EACH IV SCH ×4 (03:37→20:57)
[2019-03-18 05:50] LABS: Basophils % 0.1 % (0.0-0.8); Eosinophils # 2.6 10*3/uL (0.0-0.87); Eosinophils % 26.2 % (0.00-10.9); Hematocrit 22.4 VOL% (42.0-52.0); Hemoglobin 7.1 GM/DL (14.0-18.0); Immature Granulocytes % 0.9 %; Immature Granulocytes Absolute 0.09 #; Lymphocytes # 1.4 10*3/uL (1.4-4.0); Lymphocytes % 13.7 % (21.2-54.2); Mean Corpuscular HGB Conc 31.7 GM/DL (32-36); Mean Corpuscular Volume 100.4 FL (87-102); Mean Platelet Volume 11.1 FL (9.6-12.0); Monocytes % 3.2 % (1.7-12.7); NRBC # 0.02 10*3/uL; Neutrophils % 55.9 % (38.7-73.9); Platelet Count 110 T/CUMM (130-400); Red Blood Count 2.23 MC/CUMM (3.8-5.5); Red Cell Distribution Width 19.9 % (9.3-17.3); White Blood Count 9.9 T/CUMM (4-12)
[2019-03-18 06:16] LABS: Eosinophils 20 % (0-10); Hypochromasia 1+; Lymphocytes 14 % (20-55); Macrocytosis Slight; Platelet Estimate Decreased; Segmented Neutrophils 64 % (50-85); Total Cells Counted 100
[2019-03-18 06:17] LABS: Calcium 7.9 MG/DL (8.5-10.1); Osmolality,Calculated 294.8 MOS/KG (273-304)
[2019-03-18] MEDS: ROSUVASTATIN 20 MG TABLET PO SCH (08:55)
[2019-03-18] MEDS: LORATADINE 10 MG TABLET PO SCH (08:56)
[2019-03-18] MEDS: PANTOPRAZOLE 40 MG TABLET PO SCH ×2 (08:57→20:55)
[2019-03-18] MEDS: oxyCODONE/ACETAMINOPHEN 5-325 MG TABLET PO PRN ×2 (08:57→18:21)
[2019-03-18] MEDS: predniSONE 20 MG TABLET PO SCH (08:57)
[2019-03-18] MEDS: GABAPENTIN 300 MG CAPSULE PO SCH ×2 (08:57→20:55)
[2019-03-18] MEDS: SUCRALFATE 1 GM TABLET PO SCH ×4 (08:57→20:55)
[2019-03-18] MEDS: METOPROLOL TARTRATE 25 MG TABLET PO SCH ×2 (08:57→20:55)
[2019-03-18] MEDS: FLUDROCORTISONE 0.1 MG TABLET PO SCH (08:59)
[2019-03-18] MEDS: INSULIN LISPRO 100 UNIT/ML SUBCUT SCH ×4 (08:59→22:08)
[2019-03-18] MEDS: SEVELAMER CARBONATE 800 MG TABLET PO SCH ×3 (09:25→17:46)
[2019-03-18] MEDS: POLYETHYLENE GLYCOL POWDER 17 GM PACK PO SCH (09:26)
[2019-03-18] MEDS ORDERED: SODIUM CHLORIDE 0.9% 1,000 ML IV PRN (10:05)
[2019-03-18] MEDS: POTASSIUM CHLORIDE 20 MEQ TABLET PO SCH (14:00)
[2019-03-18] MEDS: CLOPIDOGREL 75 MG TABLET PO SCH (14:00)
[2019-03-18 21:34] LABS: Hematocrit 29.6 VOL% (42.0-52.0)
[2019-03-18 21:38] LABS: Hemoglobin 9.7 GM/DL (14.0-18.0)
[2019-03-19] MEDS: oxyCODONE/ACETAMINOPHEN 5-325 MG TABLET PO PRN ×2 (00:05→05:58)
[2019-03-19] MEDS: VANCOMYCIN 50 MG/ML 60 ML/BOTTLE PO SCH ×4 (02:21→18:35)
[2019-03-19] MEDS: MIDODRINE 5 MG TABLET PO SCH ×5 (02:22→23:50)
[2019-03-19] MEDS: CLINDAMYCIN INJ 300 MG in PREMIX 1 EACH IV SCH ×3 (03:39→18:35)
[2019-03-19 07:53] LABS: Basophils % 0.1 % (0.0-0.8); Eosinophils # 2.4 10*3/uL (0.0-0.87); Eosinophils % 20.1 % (0.00-10.9); Hematocrit 28.9 VOL% (42.0-52.0); Hemoglobin 9.3 GM/DL (14.0-18.0); Immature Granulocytes % 0.9 %; Immature Granulocytes Absolute 0.11 #; Lymphocytes # 1.6 10*3/uL (1.4-4.0); Lymphocytes % 13.3 % (21.2-54.2); Mean Corpuscular HGB Conc 32.2 GM/DL (32-36); Mean Corpuscular Volume 98.6 FL (87-102); Mean Platelet Volume 10.6 FL (9.6-12.0); Monocytes % 5.9 % (1.7-12.7); NRBC # 0.02 10*3/uL; Neutrophils % 59.7 % (38.7-73.9); Platelet Count 120 T/CUMM (130-400); Red Blood Count 2.93 MC/CUMM (3.8-5.5); White Blood Count 12.1 T/CUMM (4-12)
[2019-03-19 08:14] LABS: Eosinophils 11 % (0-10); Lymphocytes 9 % (20-55); Segmented Neutrophils 78 % (50-85); Total Cells Counted 100
[2019-03-19 08:15] LABS: Anisocytosis 1+; Macrocytosis Slight; Microcytosis 1+; Ovalocytes Few; Polychromasia Slight
[2019-03-19 08:16] LABS: Platelet Estimate Adequate
[2019-03-19 08:22] LABS: Calcium 7.9 MG/DL (8.5-10.1); Osmolality,Calculated 292.8 MOS/KG (273-304)
[2019-03-19] MEDS: INSULIN LISPRO 100 UNIT/ML SUBCUT SCH ×4 (09:55→22:48)
[2019-03-19] MEDS: SEVELAMER CARBONATE 800 MG TABLET PO SCH ×3 (09:58→17:57)
[2019-03-19] MEDS: PANTOPRAZOLE 40 MG TABLET PO SCH ×2 (10:00→21:48)
[2019-03-19] MEDS: GABAPENTIN 300 MG CAPSULE PO SCH ×2 (10:00→21:48)
[2019-03-19] MEDS: POTASSIUM CHLORIDE 20 MEQ TABLET PO SCH (10:00)
[2019-03-19] MEDS: FLUDROCORTISONE 0.1 MG TABLET PO SCH (10:01)
[2019-03-19] MEDS: CLOPIDOGREL 75 MG TABLET PO SCH (10:01)
[2019-03-19] MEDS: SUCRALFATE 1 GM TABLET PO SCH ×4 (10:01→21:48)
[2019-03-19] MEDS: LORATADINE 10 MG TABLET PO SCH (10:02)
[2019-03-19] MEDS: ROSUVASTATIN 20 MG TABLET PO SCH (10:02)
[2019-03-19] MEDS: predniSONE 20 MG TABLET PO SCH (10:02)
[2019-03-19] MEDS: METOPROLOL TARTRATE 25 MG TABLET PO SCH ×2 (10:03→21:49)
[2019-03-19] MEDS: POLYETHYLENE GLYCOL POWDER 17 GM PACK PO SCH (10:03)
[2019-03-19] MEDS: EPOETIN ALFA 10,000 UNIT/1 ML VIAL SUBCUT SCH (10:13)
[2019-03-19] MEDS: HYDROmorphone 2 MG/1 ML VIAL IV PRN ×3 (10:20→23:50)
[2019-03-19] MEDS: ONDANSETRON 4 MG/2 ML VIAL IV PRN (12:22)
[2019-03-19] MEDS: DULoxetine 20 MG CAPSULE PO SCH (21:48)
[2019-03-19] MEDS: SILVER SULFADIAZINE 1% CREAM 25 GM TUBE TOP SCH (22:48)
[2019-03-20] MEDS: VANCOMYCIN 50 MG/ML 60 ML/BOTTLE PO SCH ×4 (02:55→18:21)
[2019-03-20] MEDS: CLINDAMYCIN INJ 300 MG in PREMIX 1 EACH IV SCH ×4 (03:00→22:06)
[2019-03-20] MEDS: oxyCODONE/ACETAMINOPHEN 5-325 MG TABLET PO PRN ×3 (03:13→21:59)
[2019-03-20 05:10] LABS: Basophils % 0.1 % (0.0-0.8); Eosinophils # 1.8 10*3/uL (0.0-0.87); Eosinophils % 17.7 % (0.00-10.9); Hematocrit 29.5 VOL% (42.0-52.0); Hemoglobin 9.3 GM/DL (14.0-18.0); Immature Granulocytes % 0.9 %; Immature Granulocytes Absolute 0.09 #; Lymphocytes # 1.7 10*3/uL (1.4-4.0); Lymphocytes % 16.7 % (21.2-54.2); Mean Corpuscular HGB Conc 31.5 GM/DL (32-36); Mean Corpuscular Volume 100.7 FL (87-102); Mean Platelet Volume 11.1 FL (9.6-12.0); Monocytes % 7.9 % (1.7-12.7); Neutrophils % 56.7 % (38.7-73.9); Platelet Count 122 T/CUMM (130-400); Red Blood Count 2.93 MC/CUMM (3.8-5.5); Red Cell Distribution Width 19.4 % (9.3-17.3)
[2019-03-20 05:32] LABS: Eosinophils 12 % (0-10); Hypochromasia 1+; Lymphocytes 19 % (20-55); Segmented Neutrophils 56 % (50-85); Total Cells Counted 100
[2019-03-20 05:33] LABS: Macrocytosis Slight; Platelet Estimate Adequate; Polychromasia Slight
[2019-03-20 05:46] LABS: Calcium 8.2 MG/DL (8.5-10.1); Osmolality,Calculated 293.8 MOS/KG (273-304)
[2019-03-20] MEDS: FLUDROCORTISONE 0.1 MG TABLET PO SCH (10:08)
[2019-03-20] MEDS: POTASSIUM CHLORIDE 20 MEQ TABLET PO SCH (10:09)
[2019-03-20] MEDS: SUCRALFATE 1 GM TABLET PO SCH ×4 (10:09→21:59)
[2019-03-20] MEDS: GABAPENTIN 300 MG CAPSULE PO SCH ×2 (10:10→21:58)
[2019-03-20] MEDS: ROSUVASTATIN 20 MG TABLET PO SCH (10:10)
[2019-03-20] MEDS: predniSONE 10 MG TABLET PO SCH (10:10)
[2019-03-20] MEDS: CLOPIDOGREL 75 MG TABLET PO SCH (10:11)
[2019-03-20] MEDS: SEVELAMER CARBONATE 800 MG TABLET PO SCH ×3 (10:11→17:19)
[2019-03-20] MEDS: LORATADINE 10 MG TABLET PO SCH (10:12)
[2019-03-20] MEDS: PANTOPRAZOLE 40 MG TABLET PO SCH ×2 (10:12→21:59)
[2019-03-20] MEDS: METOPROLOL TARTRATE 25 MG TABLET PO SCH ×2 (10:12→21:59)
[2019-03-20] MEDS: INSULIN LISPRO 100 UNIT/ML SUBCUT SCH ×4 (10:13→22:06)
[2019-03-20] MEDS: MIDODRINE 5 MG TABLET PO SCH ×3 (10:14→18:21)
[2019-03-20] MEDS: POLYETHYLENE GLYCOL POWDER 17 GM PACK PO SCH (10:48)
[2019-03-20] MEDS: ONDANSETRON 4 MG/2 ML VIAL IV PRN (13:13)
[2019-03-20] MEDS: HYDROmorphone 2 MG/1 ML VIAL IV PRN (13:16)
[2019-03-20] MEDS: ASCORBIC ACID 500 MG TABLET PO SCH ×2 (13:18→21:59)
[2019-03-20] MEDS: POTASSIUM CHLORIDE 20 MEQ TABLET PO PRN ×2 (16:26→18:20)
[2019-03-20] MEDS: DULoxetine 20 MG CAPSULE PO SCH (21:58)
[2019-03-20] MEDS: SILVER SULFADIAZINE 1% CREAM 25 GM TUBE TOP SCH (22:06)
[2019-03-21] MEDS: VANCOMYCIN 50 MG/ML 60 ML/BOTTLE PO SCH ×4 (00:50→22:10)
[2019-03-21] MEDS: MIDODRINE 5 MG TABLET PO SCH ×4 (00:50→17:28)
[2019-03-21] MEDS: CLINDAMYCIN INJ 300 MG in PREMIX 1 EACH IV SCH ×3 (04:40→22:12)
[2019-03-21 05:40] LABS: Basophils % 0.1 % (0.0-0.8); Eosinophils # 1.4 10*3/uL (0.0-0.87); Eosinophils % 17.5 % (0.00-10.9); Hematocrit 29.5 VOL% (42.0-52.0); Hemoglobin 9.5 GM/DL (14.0-18.0); Immature Granulocytes % 0.9 %; Immature Granulocytes Absolute 0.07 #; Lymphocytes # 1.4 10*3/uL (1.4-4.0); Lymphocytes % 17.8 % (21.2-54.2); Mean Corpuscular HGB Conc 32.2 GM/DL (32-36); Mean Corpuscular Volume 100.7 FL (87-102); Mean Platelet Volume 10.7 FL (9.6-12.0); Monocytes % 8.4 % (1.7-12.7); NRBC # 0.04 10*3/uL; Neutrophils % 55.3 % (38.7-73.9); Platelet Count 126 T/CUMM (130-400); Red Blood Count 2.93 MC/CUMM (3.8-5.5); Red Cell Distribution Width 20.2 % (9.3-17.3); White Blood Count 7.9 T/CUMM (4-12)
[2019-03-21] MEDS: oxyCODONE/ACETAMINOPHEN 5-325 MG TABLET PO PRN (06:05)
[2019-03-21 06:06] LABS: Calcium 8.1 MG/DL (8.5-10.1); Eosinophils 13 % (0-10); Lymphocytes 15 % (20-55); Segmented Neutrophils 65 % (50-85); Total Cells Counted 100
[2019-03-21 06:07] LABS: Hypochromasia 1+; Macrocytosis Slight; Platelet Estimate Normal; Polychromasia Slight
[2019-03-21] MEDS: POTASSIUM CHLORIDE 20 MEQ TABLET PO SCH (09:29)
[2019-03-21] MEDS: ASCORBIC ACID 500 MG TABLET PO SCH ×2 (09:30→21:59)
[2019-03-21] MEDS: predniSONE 10 MG TABLET PO SCH (09:30)
[2019-03-21] MEDS: CLOPIDOGREL 75 MG TABLET PO SCH (09:30)
[2019-03-21] MEDS: GABAPENTIN 300 MG CAPSULE PO SCH ×2 (09:30→21:59)
[2019-03-21] MEDS: METOPROLOL TARTRATE 25 MG TABLET PO SCH ×2 (09:31→21:59)
[2019-03-21] MEDS: SEVELAMER CARBONATE 800 MG TABLET PO SCH ×3 (09:31→17:31)
[2019-03-21] MEDS: SUCRALFATE 1 GM TABLET PO SCH ×4 (09:32→22:00)
[2019-03-21] MEDS: PANTOPRAZOLE 40 MG TABLET PO SCH ×2 (09:32→21:59)
[2019-03-21] MEDS: FLUDROCORTISONE 0.1 MG TABLET PO SCH (09:32)
[2019-03-21] MEDS: INSULIN LISPRO 100 UNIT/ML SUBCUT SCH ×4 (09:33→22:00)
[2019-03-21] MEDS: LORATADINE 10 MG TABLET PO SCH (09:34)
[2019-03-21] MEDS: POLYETHYLENE GLYCOL POWDER 17 GM PACK PO SCH (09:34)
[2019-03-21] MEDS: ROSUVASTATIN 20 MG TABLET PO SCH (09:34)
[2019-03-21] MEDS: HYDROmorphone 2 MG/1 ML VIAL IV PRN (14:11)
[2019-03-21] MEDS: MAGNESIUM SULF RIDER 2 GM in PREMIX 1 EACH IV PRN (15:55)
[2019-03-21] MEDS: DULoxetine 20 MG CAPSULE PO SCH (21:59)
[2019-03-21] MEDS: SILVER SULFADIAZINE 1% CREAM 25 GM TUBE TOP SCH (22:13)
[2019-03-22] MEDS: ONDANSETRON 4 MG/2 ML VIAL IV PRN (01:50)
[2019-03-22] MEDS: MIDODRINE 5 MG TABLET PO SCH ×4 (02:18→19:09)
[2019-03-22] MEDS: VANCOMYCIN 50 MG/ML 60 ML/BOTTLE PO SCH ×4 (02:18→23:58)
[2019-03-22] MEDS: HYDROmorphone 2 MG/1 ML VIAL IV PRN (04:10)
[2019-03-22] MEDS: CLINDAMYCIN INJ 300 MG in PREMIX 1 EACH IV SCH ×2 (04:12→14:08)
[2019-03-22 08:15] LABS: Basophils % 0.1 % (0.0-0.8); Eosinophils # 0.8 10*3/uL (0.0-0.87); Eosinophils % 7.5 % (0.00-10.9); Hematocrit 31.9 VOL% (42.0-52.0); Hemoglobin 10.1 GM/DL (14.0-18.0); Immature Granulocytes % 0.7 %; Immature Granulocytes Absolute 0.07 #; Lymphocytes # 1.2 10*3/uL (1.4-4.0); Lymphocytes % 11.9 % (21.2-54.2); Mean Corpuscular HGB Conc 31.7 GM/DL (32-36); Mean Corpuscular Volume 102.6 FL (87-102); Mean Platelet Volume 10.6 FL (9.6-12.0); Monocytes % 9.2 % (1.7-12.7); NRBC # 0.03 10*3/uL; Neutrophils % 70.6 % (38.7-73.9); Platelet Count 144 T/CUMM (130-400); Red Blood Count 3.11 MC/CUMM (3.8-5.5); Red Cell Distribution Width 21.3 % (9.3-17.3); White Blood Count 10.1 T/CUMM (4-12)
[2019-03-22 08:32] LABS: Calcium 9.2 MG/DL (8.5-10.1); Osmolality,Calculated 295.7 MOS/KG (273-304)
[2019-03-22] MEDS: ROSUVASTATIN 20 MG TABLET PO SCH (09:53)
[2019-03-22] MEDS: LORATADINE 10 MG TABLET PO SCH (09:54)
[2019-03-22] MEDS: SEVELAMER CARBONATE 800 MG TABLET PO SCH ×3 (09:56→19:09)
[2019-03-22] MEDS: GABAPENTIN 300 MG CAPSULE PO SCH ×2 (09:59→21:17)
[2019-03-22] MEDS: POTASSIUM CHLORIDE 20 MEQ TABLET PO SCH (09:59)
[2019-03-22] MEDS: predniSONE 10 MG TABLET PO SCH (09:59)
[2019-03-22] MEDS: FLUDROCORTISONE 0.1 MG TABLET PO SCH (09:59)
[2019-03-22] MEDS: SUCRALFATE 1 GM TABLET PO SCH ×4 (10:01→21:17)
[2019-03-22] MEDS: METOPROLOL TARTRATE 25 MG TABLET PO SCH ×2 (10:01→23:59)
[2019-03-22] MEDS: CLOPIDOGREL 75 MG TABLET PO SCH (10:02)
[2019-03-22] MEDS: PANTOPRAZOLE 40 MG TABLET PO SCH ×2 (10:02→21:17)
[2019-03-22] MEDS: ASCORBIC ACID 500 MG TABLET PO SCH ×2 (10:02→21:17)
[2019-03-22] MEDS: EPOETIN ALFA 10,000 UNIT/1 ML VIAL SUBCUT SCH (10:03)
[2019-03-22] MEDS: POLYETHYLENE GLYCOL POWDER 17 GM PACK PO SCH (10:09)
[2019-03-22] MEDS ORDERED: EPOETIN ALFA 10,000 UNIT/1 ML VIAL SUBCUT SCH (10:12)
[2019-03-22] MEDS: INSULIN LISPRO 100 UNIT/ML SUBCUT SCH ×4 (12:35→23:59)
[2019-03-22] MEDS: predniSONE 5 MG TABLET PO SCH (14:48)
[2019-03-22] MEDS: DULoxetine 20 MG CAPSULE PO SCH (21:17)
[2019-03-22] MEDS: oxyCODONE/ACETAMINOPHEN 5-325 MG TABLET PO PRN (21:45)
[2019-03-22] MEDS: SILVER SULFADIAZINE 1% CREAM 25 GM TUBE TOP SCH (23:59)
[2019-03-23] MEDS: MIDODRINE 5 MG TABLET PO SCH ×3 (00:51→18:21)
[2019-03-23] MEDS: VANCOMYCIN 50 MG/ML 60 ML/BOTTLE PO SCH ×2 (00:52→06:36)
[2019-03-23 03:31] LABS: Eosinophils # 0.7 10*3/uL (0.0-0.87); Eosinophils % 10.2 % (0.00-10.9); Hematocrit 30.4 VOL% (42.0-52.0); Hemoglobin 9.7 GM/DL (14.0-18.0); Immature Granulocytes % 0.8 %; Immature Granulocytes Absolute 0.06 #; Lymphocytes # 1.6 10*3/uL (1.4-4.0); Lymphocytes % 21.8 % (21.2-54.2); Mean Corpuscular HGB Conc 31.9 GM/DL (32-36); Mean Corpuscular Volume 103.4 FL (87-102); Mean Platelet Volume 10.5 FL (9.6-12.0); Monocytes % 10.4 % (1.7-12.7); NRBC # 0.03 10*3/uL; Neutrophils % 56.8 % (38.7-73.9); Platelet Count 152 T/CUMM (130-400); Red Blood Count 2.94 MC/CUMM (3.8-5.5); Red Cell Distribution Width 22.1 % (9.3-17.3); White Blood Count 7.3 T/CUMM (4-12)
[2019-03-23 03:36] LABS: Calcium 8.8 MG/DL (8.5-10.1); Osmolality,Calculated 294.7 MOS/KG (273-304)
[2019-03-23] MEDS: CLINDAMYCIN INJ 300 MG in PREMIX 1 EACH IV SCH ×3 (05:04→10:56)
[2019-03-23 06:18] LABS: Platelet Estimate Normal
[2019-03-23 06:19] LABS: Anisocytosis 2+; Polychromasia Slight
[2019-03-23 06:20] LABS: Macrocytosis 2+
[2019-03-23] MEDS: INSULIN LISPRO 100 UNIT/ML SUBCUT SCH ×2 (08:43→18:20)
[2019-03-23] MEDS: SEVELAMER CARBONATE 800 MG TABLET PO SCH ×2 (09:03→18:22)
[2019-03-23] MEDS: GABAPENTIN 300 MG CAPSULE PO SCH (09:04)
[2019-03-23] MEDS: SUCRALFATE 1 GM TABLET PO SCH ×3 (09:04→18:23)
[2019-03-23] MEDS: ASCORBIC ACID 500 MG TABLET PO SCH (09:04)
[2019-03-23] MEDS: CLOPIDOGREL 75 MG TABLET PO SCH (09:05)
[2019-03-23] MEDS: METOPROLOL TARTRATE 25 MG TABLET PO SCH (09:05)
[2019-03-23] MEDS: POTASSIUM CHLORIDE 20 MEQ TABLET PO SCH (09:06)
[2019-03-23] MEDS: predniSONE 5 MG TABLET PO SCH (09:07)
[2019-03-23] MEDS: PANTOPRAZOLE 40 MG TABLET PO SCH (09:07)
[2019-03-23] MEDS: FLUDROCORTISONE 0.1 MG TABLET PO SCH (09:07)
[2019-03-23] MEDS: POLYETHYLENE GLYCOL POWDER 17 GM PACK PO SCH (09:08)
[2019-03-23] MEDS: ONDANSETRON 4 MG/2 ML VIAL IV PRN (11:15)
[2019-03-23 16:58] VITALS: BP 128/78
== END 2019-03-23 19:17 | DRG 616 ==
LOC: N.CL 11:22 → N.TELEN 14:45 → N.ICU 17:25 → SUATTDRO 02-26 13:25 → N.ICU 02-26 13:25 → N.TELEN 02-27 14:14 → N.CC 03-01 15:05 → N.TELEN 03-07 13:04 → N.ICU 03-12 17:31 → N.TELEN 03-14 11:25
PROVIDERS: ADMIT Internal Medicine Cardiovascular Disease; ATTEND Internal Medicine Cardiovascular Disease

== ENCOUNTER 2019-08-18 09:08 | Inpatient (IN) ==
[2019-08-18] MEDS ORDERED: HYDROmorphone 2 MG/1 ML VIAL IV ONE (11:30)
[2019-08-18] MEDS ORDERED: DOPamine 800 MG/250 ML PREMIX IV PRN (11:48)
[2019-08-18] MEDS ORDERED: dilTIAZem Drip 125 MG/125 ML PREMIX IV SCH (12:00)
[2019-08-18] MEDS ORDERED: ACETAMINOPHEN 325 MG TABLET PO PRN ×2 (12:23→12:39)
[2019-08-18] MEDS ORDERED: DOCUSATE SODIUM 100 MG CAPSULE PO PRN (12:23)
[2019-08-18] MEDS ORDERED: POLYETHYLENE GLYCOL POWDER 17 GM PACK PO PRN (12:29)
[2019-08-18] MEDS ORDERED: NOREPINEPHRINE 8 MG in SODIUM CHLORIDE 0.9% 242 ML IV SCH (12:30)
[2019-08-18] MEDS ORDERED: VANCOMYCIN INJ 1,750 MG in SODIUM CHLORIDE 0.9% 500 ML IV SCH (12:30)
[2019-08-18] MEDS ORDERED: VANCOMYCIN INJ 1,250 MG in SODIUM CHLORIDE 0.9% 250 ML IV PRN (12:34)
[2019-08-18] MEDS ORDERED: methylPREDNISolone SOD SUC 125 MG/2 ML VIAL IV ONE (12:37)
[2019-08-18] MEDS ORDERED: LEVALBUTEROL 1.25 MG/3 ML NEB RESP TX PRN (12:45)
[2019-08-18] MEDS ORDERED: VANCOMYCIN INJ 1,750 MG in SODIUM CHLORIDE 0.9% 500 ML IV ONE (13:00)
[2019-08-18] MEDS: LEVALBUTEROL 1.25 MG/3 ML NEB RESP TX SCH ×2 (13:36→19:45)
[2019-08-18] MEDS: MEROPENEM 500 MG in SODIUM CHLORIDE 0.9% 100 ML IV SCH (14:15)
[2019-08-18 14:32] LABS: Risk Ratio 4.32; VLDL CHOLESTEROL 45.6 MG/DL
[2019-08-18] MEDS ORDERED: GLUCAGON 1 MG VIAL IM PRN (16:26)
[2019-08-18] MEDS ORDERED: DEXTROSE 10% 250 ML BAG IV PRN (16:26)
[2019-08-18] MEDS: HYDROmorphone 2 MG/1 ML VIAL IV PRN ×2 (16:31→21:24)
[2019-08-18 17:24] LABS: CKMB % 17.6 %
[2019-08-18 17:30] LABS: Calcium 9.2 MG/DL (8.5-10.1); Osmolality,Calculated 296.5 MOS/KG (273-304)
[2019-08-18] MEDS: INSULIN LISPRO 100 UNIT/ML SUBCUT SCH ×2 (18:10→21:11)
[2019-08-18] MEDS: DILTIAZEM 30 MG TABLET PO SCH ×2 (18:10→21:14)
[2019-08-18] MEDS: SEVELAMER CARBONATE 800 MG TABLET PO SCH (18:11)
[2019-08-18] MEDS ORDERED: ASPIRIN 325 MG TABLET PO ONE (18:48)
[2019-08-18] MEDS ORDERED: NITROGLYCERIN 2% OINT 1 INCH/GM PACK TOP PRN (20:00)
[2019-08-18] MEDS ORDERED: DILTIAZEM CD 120 MG CAPSULE PO SCH (21:00)
[2019-08-18] MEDS: methylPREDNISolone SOD SUC 40 MG/1 ML VIAL IV SCH (21:11)
[2019-08-18] MEDS: ASCORBIC ACID 500 MG TABLET PO SCH (21:14)
[2019-08-18] MEDS: GABAPENTIN 600 MG TABLET PO SCH (21:15)
[2019-08-18 23:19] LABS: CKMB % 19.5 %
[2019-08-18 23:23] LABS: Troponin I 10.9 NG/ML (0.00-0.045)
[2019-08-19] MEDS: LEVALBUTEROL 1.25 MG/3 ML NEB RESP TX SCH ×4 (01:15→21:53)
[2019-08-19] MEDS: methylPREDNISolone SOD SUC 40 MG/1 ML VIAL IV SCH ×3 (04:18→21:38)
[2019-08-19] MEDS: HYDROmorphone 2 MG/1 ML VIAL IV PRN (05:36)
[2019-08-19 05:53] LABS: Basophils % 0.1 % (0.0-0.8); Hematocrit 27.7 VOL% (42.0-52.0); Hemoglobin 8.6 GM/DL (14.0-18.0); Immature Granulocytes % 1.2 %; Immature Granulocytes Absolute 0.12 #; Lymphocytes # 0.3 10*3/uL (1.4-4.0); Mean Corpuscular Volume 106.5 FL (87-102); Mean Platelet Volume 10.9 FL (9.6-12.0); Monocytes % 4.2 % (1.7-12.7); Neutrophils % 91.5 % (38.7-73.9); Platelet Count 117 T/CUMM (130-400); Red Cell Distribution Width 14.8 % (9.3-17.3); White Blood Count 9.6 T/CUMM (4-12)
[2019-08-19 06:22] LABS: Hypochromasia 1+; Lymphocytes 4 % (20-55); Segmented Neutrophils 92 % (50-85); Total Cells Counted 100
[2019-08-19 06:23] LABS: Macrocytosis Slight; Platelet Estimate Adequate
[2019-08-19 06:32] LABS: Albumin 2.7 G/DL (3.4-5.0); Bilirubin,Total 0.4 MG/DL (0.2-1.0); Calcium 9.3 MG/DL (8.5-10.1); Osmolality,Calculated 290.9 MOS/KG (273-304); Total Protein 6.3 G/DL (6.4-8.3)
[2019-08-19 07:22] LABS: CKMB % 22.3 %
[2019-08-19 07:23] LABS: Troponin I 7.55 NG/ML (0.00-0.045)
[2019-08-19] MEDS ORDERED: MORPHINE 4 MG/1 ML VIAL IV ONE (07:57)
[2019-08-19] MEDS ORDERED: SODIUM CHLORIDE 0.9% 1,000 ML IV PRN (07:59)
[2019-08-19] MEDS: ONDANSETRON 4 MG/2 ML VIAL IV PRN (08:05)
[2019-08-19] MEDS ORDERED: LORazepam 2 MG/1 ML VIAL IV ONE (08:09)
[2019-08-19 08:20] LABS: % Iron Saturation 36.3 % (18-50); Ferritin 616.9 ng/ml (26-388)
[2019-08-19 08:37] LABS: Folate 13.9 NG/ML (5.4-24.0)
[2019-08-19] MEDS ORDERED: ASPIRIN EC 81 MG TABLET PO SCH (09:00)
[2019-08-19] MEDS: INSULIN LISPRO 100 UNIT/ML SUBCUT SCH ×4 (09:10→21:48)
[2019-08-19] MEDS: DILTIAZEM 30 MG TABLET PO SCH ×5 (09:11→21:40)
[2019-08-19] MEDS: CLORAZEPATE 3.75 MG TABLET PO SCH ×2 (09:12→21:39)
[2019-08-19] MEDS: carvediloL 3.125 MG TABLET PO SCH ×2 (09:12→21:39)
[2019-08-19] MEDS: CLOPIDOGREL 75 MG TABLET PO SCH (09:12)
[2019-08-19] MEDS: ASCORBIC ACID 500 MG TABLET PO SCH ×2 (09:12→21:39)
[2019-08-19] MEDS: FAMOTIDINE 20 MG/2 ML VIAL IV SCH (09:12)
[2019-08-19] MEDS: GABAPENTIN 600 MG TABLET PO SCH ×2 (09:12→21:39)
[2019-08-19 09:16] LABS: Basophils % 0.1 % (0.0-0.8); Hematocrit 28.2 VOL% (42.0-52.0); Hemoglobin 9.1 GM/DL (14.0-18.0); Immature Granulocytes % 1.1 %; Immature Granulocytes Absolute 0.13 #; Lymphocytes # 0.3 10*3/uL (1.4-4.0); Lymphocytes % 2.6 % (21.2-54.2); Mean Corpuscular HGB Conc 32.3 GM/DL (32-36); Mean Corpuscular Volume 104.4 FL (87-102); Mean Platelet Volume 10.8 FL (9.6-12.0); Monocytes % 3.4 % (1.7-12.7); Neutrophils % 92.8 % (38.7-73.9); Platelet Count 135 T/CUMM (130-400); Red Cell Distribution Width 15.2 % (9.3-17.3); White Blood Count 12.2 T/CUMM (4-12)
[2019-08-19 09:28] LABS: Calcium 9.7 MG/DL (8.5-10.1); Osmolality,Calculated 293.1 MOS/KG (273-304)
[2019-08-19 09:58] LABS: Band Neutrophils 4 % (0-10); Segmented Neutrophils 90 % (50-85); Total Cells Counted 100
[2019-08-19 09:59] LABS: Anisocytosis 2+; Macrocytosis 1+; Platelet Estimate Adequate
[2019-08-19] MEDS: SEVELAMER CARBONATE 800 MG TABLET PO SCH ×3 (10:41→16:53)
[2019-08-19] MEDS ORDERED: HYDROmorphone 2 MG/1 ML VIAL IV PRN (10:43)
[2019-08-19] MEDS: APIXABAN 2.5 MG TABLET PO SCH ×2 (11:10→21:39)
[2019-08-19] MEDS: MEROPENEM 500 MG in SODIUM CHLORIDE 0.9% 100 ML IV SCH (12:38)
[2019-08-19] MEDS ORDERED: GLUCAGON 1 MG VIAL IM PRN (13:39)
[2019-08-19] MEDS ORDERED: DEXTROSE 50% 25 GM/50 ML VIAL IV PRN (13:39)
[2019-08-19] MEDS: oxyCODONE/ACETAMINOPHEN 5-325 MG TABLET PO PRN (21:41)
[2019-08-20] MEDS: LEVALBUTEROL 1.25 MG/3 ML NEB RESP TX SCH ×3 (01:52→14:40)
[2019-08-20] MEDS: methylPREDNISolone SOD SUC 40 MG/1 ML VIAL IV SCH ×3 (04:22→21:20)
[2019-08-20 04:58] LABS: Basophils % 0.1 % (0.0-0.8); Hematocrit 23.6 VOL% (42.0-52.0); Hemoglobin 7.7 GM/DL (14.0-18.0); Immature Granulocytes % 1.1 %; Lymphocytes # 0.4 10*3/uL (1.4-4.0); Lymphocytes % 4.3 % (21.2-54.2); Mean Corpuscular HGB Conc 32.6 GM/DL (32-36); Mean Corpuscular Volume 103.5 FL (87-102); Mean Platelet Volume 10.6 FL (9.6-12.0); Monocytes % 4.8 % (1.7-12.7); Neutrophils % 89.7 % (38.7-73.9); Platelet Count 105 T/CUMM (130-400); Red Blood Count 2.28 MC/CUMM (3.8-5.5); Red Cell Distribution Width 14.9 % (9.3-17.3)
[2019-08-20 05:19] LABS: Calcium 8.6 MG/DL (8.5-10.1); Osmolality,Calculated 293.8 MOS/KG (273-304)
[2019-08-20 05:29] LABS: Band Neutrophils 1 % (0-10); Hypochromasia 1+; Lymphocytes 5 % (20-55); Segmented Neutrophils 88 % (50-85); Total Cells Counted 100
[2019-08-20 05:30] LABS: Macrocytosis Slight; Platelet Estimate Decreased
[2019-08-20] MEDS: GABAPENTIN 600 MG TABLET PO SCH ×2 (09:20→21:18)
[2019-08-20] MEDS: SEVELAMER CARBONATE 800 MG TABLET PO SCH ×3 (09:20→16:46)
[2019-08-20] MEDS: DILTIAZEM 30 MG TABLET PO SCH ×4 (09:20→21:18)
[2019-08-20] MEDS: FAMOTIDINE 20 MG/2 ML VIAL IV SCH (09:21)
[2019-08-20] MEDS: ASCORBIC ACID 500 MG TABLET PO SCH ×3 (09:21→21:18)
[2019-08-20] MEDS: CLOPIDOGREL 75 MG TABLET PO SCH (09:21)
[2019-08-20] MEDS: carvediloL 3.125 MG TABLET PO SCH ×2 (09:22→21:18)
[2019-08-20] MEDS: CLORAZEPATE 3.75 MG TABLET PO SCH ×2 (09:22→21:18)
[2019-08-20] MEDS: INSULIN LISPRO 100 UNIT/ML SUBCUT SCH ×4 (09:29→21:19)
[2019-08-20] MEDS: oxyCODONE/ACETAMINOPHEN 5-325 MG TABLET PO PRN ×2 (10:13→18:19)
[2019-08-20 11:57] LABS: Hematocrit 28.9 VOL% (42.0-52.0); Hemoglobin 9.2 GM/DL (14.0-18.0)
[2019-08-20] MEDS: MEROPENEM 500 MG in SODIUM CHLORIDE 0.9% 100 ML IV SCH (12:04)
[2019-08-20 12:58] LABS: % Iron Saturation 90.9 % (18-50)
[2019-08-20 13:00] LABS: Bilirubin,Direct 0.11 MG/DL (0.0-0.20); Bilirubin,Total 0.4 MG/DL (0.2-1.0)
[2019-08-20 13:09] LABS: Folate > 24.0 NG/ML (5.4-24.0); Vitamin B12 724 PG/ML (211-911)
[2019-08-20] MEDS ORDERED: oxyCODONE/ACETAMINOPHEN 5-325 MG TABLET PO ONE (14:39)
[2019-08-20] MEDS: ONDANSETRON 4 MG/2 ML VIAL IV PRN (14:51)
[2019-08-20] MEDS: INSULIN GLARGINE 100 UNIT/ML SUBCUT SCH (21:20)
[2019-08-21] MEDS: oxyCODONE/ACETAMINOPHEN 5-325 MG TABLET PO PRN ×3 (02:43→17:27)
[2019-08-21 04:51] LABS: Hematocrit 23.8 VOL% (42.0-52.0); Hemoglobin 7.7 GM/DL (14.0-18.0); Immature Granulocytes % 2.2 %; Immature Granulocytes Absolute 0.17 #; Lymphocytes # 0.4 10*3/uL (1.4-4.0); Lymphocytes % 4.8 % (21.2-54.2); Mean Corpuscular HGB Conc 32.4 GM/DL (32-36); Mean Corpuscular Volume 103.5 FL (87-102); Mean Platelet Volume 11.1 FL (9.6-12.0); Monocytes % 5.8 % (1.7-12.7); Neutrophils % 87.2 % (38.7-73.9); Platelet Count 105 T/CUMM (130-400); Red Cell Distribution Width 14.3 % (9.3-17.3); White Blood Count 7.8 T/CUMM (4-12)
[2019-08-21] MEDS: methylPREDNISolone SOD SUC 40 MG/1 ML VIAL IV SCH ×3 (05:08→21:47)
[2019-08-21 05:22] LABS: Band Neutrophils 1 % (0-10); Hypochromasia 1+; Lymphocytes 5 % (20-55); Platelet Estimate Decreased; Segmented Neutrophils 92 % (50-85); Total Cells Counted 100
[2019-08-21 05:23] LABS: Macrocytosis Slight
[2019-08-21 05:34] LABS: Calcium 8.9 MG/DL (8.5-10.1); Osmolality,Calculated 300.8 MOS/KG (273-304)
[2019-08-21] MEDS: LEVALBUTEROL 1.25 MG/3 ML NEB RESP TX SCH ×3 (08:05→21:18)
[2019-08-21] MEDS: INSULIN LISPRO 100 UNIT/ML SUBCUT SCH ×4 (09:06→21:43)
[2019-08-21] MEDS: INSULIN GLARGINE 100 UNIT/ML SUBCUT SCH ×2 (09:06→21:42)
[2019-08-21] MEDS: SEVELAMER CARBONATE 800 MG TABLET PO SCH ×3 (09:07→16:40)
[2019-08-21] MEDS: FAMOTIDINE 20 MG/2 ML VIAL IV SCH (09:07)
[2019-08-21] MEDS: CLOPIDOGREL 75 MG TABLET PO SCH (09:07)
[2019-08-21] MEDS: GABAPENTIN 600 MG TABLET PO SCH ×2 (09:07→21:42)
[2019-08-21] MEDS: DILTIAZEM 30 MG TABLET PO SCH (09:08)
[2019-08-21] MEDS: CLORAZEPATE 3.75 MG TABLET PO SCH ×2 (09:08→21:42)
[2019-08-21] MEDS: carvediloL 3.125 MG TABLET PO SCH ×2 (09:09→21:41)
[2019-08-21] MEDS: ASCORBIC ACID 500 MG TABLET PO SCH ×3 (09:09→21:42)
[2019-08-21 11:44] LABS: Hematocrit 25.8 VOL% (42.0-52.0); Hemoglobin 8.3 GM/DL (14.0-18.0)
[2019-08-21] MEDS ORDERED: BISACODYL 5 MG TABLET PO ONE (11:55)
[2019-08-21] MEDS: MEROPENEM 500 MG in SODIUM CHLORIDE 0.9% 100 ML IV SCH (12:14)
[2019-08-21] MEDS ORDERED: SODIUM CHLORIDE 0.9% 1,000 ML IV PRN (15:29)
[2019-08-21] MEDS: carvediloL 6.25 MG TABLET PO SCH (21:42)
[2019-08-22] MEDS: oxyCODONE/ACETAMINOPHEN 5-325 MG TABLET PO PRN ×3 (00:34→21:40)
[2019-08-22] MEDS: LEVALBUTEROL 1.25 MG/3 ML NEB RESP TX SCH ×4 (03:36→19:00)
[2019-08-22] MEDS: methylPREDNISolone SOD SUC 40 MG/1 ML VIAL IV SCH ×2 (04:09→12:57)
[2019-08-22 06:09] LABS: Hematocrit 25.1 VOL% (42.0-52.0); Hemoglobin 8.2 GM/DL (14.0-18.0); Immature Granulocytes % 3.2 %; Immature Granulocytes Absolute 0.29 #; Lymphocytes # 0.5 10*3/uL (1.4-4.0); Lymphocytes % 5.5 % (21.2-54.2); Mean Corpuscular HGB Conc 32.7 GM/DL (32-36); Mean Corpuscular Volume 102.4 FL (87-102); Monocytes % 7.3 % (1.7-12.7); NRBC # 0.03 10*3/uL; Platelet Count 99 T/CUMM (130-400); Red Blood Count 2.45 MC/CUMM (3.8-5.5); Red Cell Distribution Width 14.1 % (9.3-17.3); White Blood Count 8.9 T/CUMM (4-12)
[2019-08-22 07:04] LABS: Calcium 8.7 MG/DL (8.5-10.1); Osmolality,Calculated 306.5 MOS/KG (273-304)
[2019-08-22 08:05] LABS: Hypochromasia Slight; Platelet Estimate Decreased
[2019-08-22 08:06] LABS: Macrocytosis Slight
[2019-08-22] MEDS: GABAPENTIN 600 MG TABLET PO SCH ×2 (09:14→21:40)
[2019-08-22] MEDS: CLORAZEPATE 3.75 MG TABLET PO SCH ×3 (09:14→22:11)
[2019-08-22] MEDS: SEVELAMER CARBONATE 800 MG TABLET PO SCH ×4 (09:15→16:26)
[2019-08-22] MEDS: ASPIRIN EC 81 MG TABLET PO SCH (09:15)
[2019-08-22] MEDS: INSULIN GLARGINE 100 UNIT/ML SUBCUT SCH ×2 (09:15→21:41)
[2019-08-22] MEDS: CLOPIDOGREL 75 MG TABLET PO SCH (09:16)
[2019-08-22] MEDS: FAMOTIDINE 20 MG/2 ML VIAL IV SCH (09:16)
[2019-08-22] MEDS: carvediloL 6.25 MG TABLET PO SCH (09:16)
[2019-08-22] MEDS: INSULIN LISPRO 100 UNIT/ML SUBCUT SCH ×4 (09:16→21:39)
[2019-08-22] MEDS: ASCORBIC ACID 500 MG TABLET PO SCH ×2 (09:17→22:11)
[2019-08-22] MEDS: MEROPENEM 500 MG in SODIUM CHLORIDE 0.9% 100 ML IV SCH (12:58)
[2019-08-22] MEDS: PANTOPRAZOLE 40 MG VIAL IV SCH (21:42)
[2019-08-23] MEDS: LEVALBUTEROL 1.25 MG/3 ML NEB RESP TX SCH ×4 (01:00→13:07)
[2019-08-23 06:22] LABS: Basophils % 0.2 % (0.0-0.8); Eosinophils # 0.1 10*3/uL (0.0-0.87); Eosinophils % 0.8 % (0.00-10.9); Hematocrit 31.1 VOL% (42.0-52.0); Hemoglobin 10.2 GM/DL (14.0-18.0); Immature Granulocytes % 3.8 %; Immature Granulocytes Absolute 0.51 #; Lymphocytes # 0.9 10*3/uL (1.4-4.0); Lymphocytes % 6.4 % (21.2-54.2); Mean Corpuscular HGB Conc 32.8 GM/DL (32-36); Mean Corpuscular Volume 98.7 FL (87-102); Mean Platelet Volume 10.8 FL (9.6-12.0); Monocytes % 10.1 % (1.7-12.7); NRBC # 0.07 10*3/uL; Neutrophils % 78.7 % (38.7-73.9); Red Blood Count 3.15 MC/CUMM (3.8-5.5); Red Cell Distribution Width 15.7 % (9.3-17.3); White Blood Count 13.3 T/CUMM (4-12)
[2019-08-23 06:29] LABS: Calcium 8.5 MG/DL (8.5-10.1); Osmolality,Calculated 301.7 MOS/KG (273-304)
[2019-08-23 06:32] LABS: Platelet Count 91 T/CUMM (130-400)
[2019-08-23] MEDS: oxyCODONE/ACETAMINOPHEN 5-325 MG TABLET PO PRN (06:35)
[2019-08-23 06:51] LABS: Band Neutrophils 1 % (0-10); Eosinophils 4 % (0-10); Lymphocytes 4 % (20-55); Segmented Neutrophils 79 % (50-85); Total Cells Counted 100
[2019-08-23 06:52] LABS: Hypochromasia 1+; Macrocytosis Slight; Ovalocytes Slight; Platelet Estimate Decreased
[2019-08-23] MEDS: INSULIN LISPRO 100 UNIT/ML SUBCUT SCH ×4 (08:33→22:01)
[2019-08-23] MEDS: SEVELAMER CARBONATE 800 MG TABLET PO SCH ×3 (08:50→17:24)
[2019-08-23] MEDS: INSULIN GLARGINE 100 UNIT/ML SUBCUT SCH ×2 (09:46→22:00)
[2019-08-23] MEDS: ASCORBIC ACID 500 MG TABLET PO SCH ×2 (09:47→22:02)
[2019-08-23] MEDS: ASPIRIN EC 81 MG TABLET PO SCH (09:48)
[2019-08-23] MEDS: CLORAZEPATE 3.75 MG TABLET PO SCH ×2 (09:48→22:04)
[2019-08-23] MEDS: CLOPIDOGREL 75 MG TABLET PO SCH (09:48)
[2019-08-23] MEDS: METOPROLOL SUCCINATE XL 25 MG TABLET PO SCH (09:49)
[2019-08-23] MEDS: GABAPENTIN 600 MG TABLET PO SCH ×2 (09:49→22:00)
[2019-08-23] MEDS: PANTOPRAZOLE 40 MG VIAL IV SCH ×2 (09:50→22:01)
[2019-08-23] MEDS: FAMOTIDINE 20 MG/2 ML VIAL IV SCH (09:56)
[2019-08-23] MEDS ORDERED: ALBUMIN 25% 25 GM in PREMIX 1 EACH IV ONE (12:59)
[2019-08-23] MEDS ORDERED: SODIUM CHLORIDE 0.9% 250 ML IV ONE (13:15)
[2019-08-23] MEDS ORDERED: PHENYLEPHRINE DRIP 40 MG/250 ML PREMIX IV ONE (13:34)
[2019-08-23] MEDS: PHENYLEPHRINE DRIP 40 MG/250 ML PREMIX IV PRN (13:39)
[2019-08-23] MEDS: MEROPENEM 500 MG in SODIUM CHLORIDE 0.9% 100 ML IV SCH (14:26)
[2019-08-23] MEDS ORDERED: SODIUM CHLORIDE 0.9% 250 ML IV PRN (15:47)
[2019-08-24] MEDS: PHENYLEPHRINE DRIP 40 MG/250 ML PREMIX IV PRN ×2 (01:09→13:20)
[2019-08-24] MEDS: oxyCODONE/ACETAMINOPHEN 5-325 MG TABLET PO PRN ×3 (03:40→21:43)
[2019-08-24 05:33] LABS: Calcium 8.5 MG/DL (8.5-10.1); Osmolality,Calculated 309.2 MOS/KG (273-304)
[2019-08-24 05:36] LABS: Albumin 2.9 G/DL (3.4-5.0); Bilirubin,Direct 0.18 MG/DL (0.0-0.20); Bilirubin,Indirect 0.6 MG/DL (0.0-1.0); Bilirubin,Total 0.8 MG/DL (0.2-1.0); Total Protein 5.2 G/DL (6.4-8.3)
[2019-08-24 06:01] LABS: Basophils # 0.1 10*3/uL (0.0-0.2); Basophils % 0.4 % (0.0-0.8); Eosinophils # 1.2 10*3/uL (0.0-0.87); Eosinophils % 4.7 % (0.00-10.9); Hematocrit 33.4 VOL% (42.0-52.0); Immature Granulocytes % 4.6 %; Immature Granulocytes Absolute 1.14 #; Lymphocytes # 1.3 10*3/uL (1.4-4.0); Lymphocytes % 5.2 % (21.2-54.2); Mean Corpuscular HGB Conc 32.9 GM/DL (32-36); Mean Corpuscular Volume 99.7 FL (87-102); Mean Platelet Volume 11.7 FL (9.6-12.0); Monocytes % 11.6 % (1.7-12.7); NRBC # 0.12 10*3/uL; Neutrophils % 73.5 % (38.7-73.9); Red Blood Count 3.35 MC/CUMM (3.8-5.5); Red Cell Distribution Width 16.2 % (9.3-17.3)
[2019-08-24 06:02] LABS: Platelet Count 138 T/CUMM (130-400); White Blood Count 24.6 T/CUMM (4-12)
[2019-08-24 06:07] LABS: Eosinophils 4 % (0-10); Hypochromasia 1+; Lymphocytes 3 % (20-55); Macrocytosis Slight; Ovalocytes Slight; Platelet Estimate Normal; Segmented Neutrophils 86 % (50-85); Total Cells Counted 100
[2019-08-24] MEDS: INSULIN LISPRO 100 UNIT/ML SUBCUT SCH ×4 (08:58→21:43)
[2019-08-24] MEDS: PANTOPRAZOLE 40 MG VIAL IV SCH ×2 (09:32→21:44)
[2019-08-24] MEDS: INSULIN GLARGINE 100 UNIT/ML SUBCUT SCH ×2 (09:54→21:43)
[2019-08-24] MEDS: ASPIRIN EC 81 MG TABLET PO SCH (09:59)
[2019-08-24] MEDS: ASCORBIC ACID 500 MG TABLET PO SCH ×3 (09:59→21:41)
[2019-08-24] MEDS: GABAPENTIN 600 MG TABLET PO SCH ×2 (09:59→21:43)
[2019-08-24] MEDS: SEVELAMER CARBONATE 800 MG TABLET PO SCH ×3 (09:59→17:20)
[2019-08-24] MEDS: CLORAZEPATE 3.75 MG TABLET PO SCH ×3 (09:59→21:41)
[2019-08-24] MEDS: CLOPIDOGREL 75 MG TABLET PO SCH (09:59)
[2019-08-24] MEDS: METOPROLOL SUCCINATE XL 25 MG TABLET PO SCH (10:00)
[2019-08-24] MEDS: MEROPENEM 500 MG in SODIUM CHLORIDE 0.9% 100 ML IV SCH (12:50)
[2019-08-25] MEDS: PHENYLEPHRINE DRIP 40 MG/250 ML PREMIX IV PRN ×2 (04:28→22:50)
[2019-08-25 05:36] LABS: Basophils # 0.1 10*3/uL (0.0-0.2); Basophils % 0.4 % (0.0-0.8); Eosinophils # 0.6 10*3/uL (0.0-0.87); Eosinophils % 3.9 % (0.00-10.9); Hemoglobin 9.6 GM/DL (14.0-18.0); Immature Granulocytes % 4.2 %; Lymphocytes # 0.9 10*3/uL (1.4-4.0); Lymphocytes % 6.1 % (21.2-54.2); Mean Corpuscular HGB Conc 33.1 GM/DL (32-36); Mean Platelet Volume 11.8 FL (9.6-12.0); Monocytes % 12.6 % (1.7-12.7); NRBC # 0.02 10*3/uL; Neutrophils % 72.8 % (38.7-73.9); Platelet Count 90 T/CUMM (130-400); Red Blood Count 2.93 MC/CUMM (3.8-5.5); Red Cell Distribution Width 16.5 % (9.3-17.3); White Blood Count 14.2 T/CUMM (4-12)
[2019-08-25 05:59] LABS: Calcium 8.8 MG/DL (8.5-10.1); Osmolality,Calculated 307.2 MOS/KG (273-304)
[2019-08-25 06:05] LABS: Band Neutrophils 2 % (0-10); Eosinophils 6 % (0-10); Hypochromasia 1+; Lymphocytes 10 % (20-55); Macrocytosis Slight; Platelet Estimate Decreased; Segmented Neutrophils 73 % (50-85); Total Cells Counted 100
[2019-08-25] MEDS: INSULIN LISPRO 100 UNIT/ML SUBCUT SCH ×4 (07:42→21:44)
[2019-08-25] MEDS: SEVELAMER CARBONATE 800 MG TABLET PO SCH ×3 (10:28→17:32)
[2019-08-25] MEDS: ASPIRIN EC 81 MG TABLET PO SCH (10:28)
[2019-08-25] MEDS: ASCORBIC ACID 500 MG TABLET PO SCH ×2 (10:28→21:43)
[2019-08-25] MEDS: PANTOPRAZOLE 40 MG TABLET PO SCH ×2 (10:29→21:43)
[2019-08-25] MEDS: METOPROLOL SUCCINATE XL 25 MG TABLET PO SCH (10:29)
[2019-08-25] MEDS: GABAPENTIN 600 MG TABLET PO SCH ×2 (10:29→21:44)
[2019-08-25] MEDS: CLOPIDOGREL 75 MG TABLET PO SCH (10:29)
[2019-08-25] MEDS: CLORAZEPATE 3.75 MG TABLET PO SCH ×2 (10:30→21:50)
[2019-08-25] MEDS: INSULIN GLARGINE 100 UNIT/ML SUBCUT SCH ×2 (11:16→21:45)
[2019-08-25] MEDS: oxyCODONE/ACETAMINOPHEN 5-325 MG TABLET PO PRN ×2 (11:22→21:51)
[2019-08-25] MEDS: MEROPENEM 500 MG in SODIUM CHLORIDE 0.9% 100 ML IV SCH (13:25)
[2019-08-25] MEDS: MIDODRINE 5 MG TABLET PO SCH (21:43)
[2019-08-26 03:39] LABS: Neutrophils,Peritoneal Fluid 35 %; RBC,Peritoneal Fluid 9 T/CUMM
[2019-08-26 05:44] LABS: Basophils % 0.2 % (0.0-0.8); Eosinophils # 0.6 10*3/uL (0.0-0.87); Eosinophils % 5.4 % (0.00-10.9); Hematocrit 26.3 VOL% (42.0-52.0); Hemoglobin 8.8 GM/DL (14.0-18.0); Immature Granulocytes % 3.1 %; Immature Granulocytes Absolute 0.33 #; Lymphocytes # 0.8 10*3/uL (1.4-4.0); Lymphocytes % 7.9 % (21.2-54.2); Mean Corpuscular HGB Conc 33.5 GM/DL (32-36); Mean Corpuscular Volume 98.1 FL (87-102); Mean Platelet Volume 11.8 FL (9.6-12.0); Neutrophils % 68.4 % (38.7-73.9); Red Blood Count 2.68 MC/CUMM (3.8-5.5); Red Cell Distribution Width 16.4 % (9.3-17.3); White Blood Count 10.6 T/CUMM (4-12)
[2019-08-26 05:51] LABS: Platelet Count 71 T/CUMM (130-400)
[2019-08-26 06:05] LABS: Calcium 8.2 MG/DL (8.5-10.1); Osmolality,Calculated 303.2 MOS/KG (273-304)
[2019-08-26 06:06] LABS: Hypochromasia 1+; Ovalocytes Slight; Platelet Estimate Decreased
[2019-08-26 06:07] LABS: Macrocytosis Slight
[2019-08-26] MEDS: INSULIN LISPRO 100 UNIT/ML SUBCUT SCH ×4 (08:26→20:21)
[2019-08-26] MEDS: SEVELAMER CARBONATE 800 MG TABLET PO SCH ×3 (08:26→17:44)
[2019-08-26] MEDS: INSULIN GLARGINE 100 UNIT/ML SUBCUT SCH ×2 (08:27→20:21)
[2019-08-26] MEDS: CLORAZEPATE 3.75 MG TABLET PO SCH (08:27)
[2019-08-26] MEDS: ASPIRIN EC 81 MG TABLET PO SCH (08:45)
[2019-08-26] MEDS: GABAPENTIN 600 MG TABLET PO SCH ×2 (08:45→20:11)
[2019-08-26] MEDS: CLOPIDOGREL 75 MG TABLET PO SCH (08:45)
[2019-08-26] MEDS: PANTOPRAZOLE 40 MG TABLET PO SCH ×2 (08:45→20:12)
[2019-08-26] MEDS: METOPROLOL SUCCINATE XL 25 MG TABLET PO SCH (08:45)
[2019-08-26] MEDS: ASCORBIC ACID 500 MG TABLET PO SCH ×2 (08:45→20:12)
[2019-08-26] MEDS: MIDODRINE 5 MG TABLET PO SCH ×3 (08:45→20:12)
[2019-08-27] MEDS: PHENYLEPHRINE DRIP 40 MG/250 ML PREMIX IV PRN (00:15)
[2019-08-27 05:44] LABS: Basophils % 0.2 % (0.0-0.8); Eosinophils # 0.7 10*3/uL (0.0-0.87); Eosinophils % 4.7 % (0.00-10.9); Hemoglobin 8.8 GM/DL (14.0-18.0); Immature Granulocytes % 1.5 %; Immature Granulocytes Absolute 0.22 #; Lymphocytes % 6.7 % (21.2-54.2); Mean Corpuscular HGB Conc 31.4 GM/DL (32-36); Mean Corpuscular Volume 103.3 FL (87-102); Mean Platelet Volume 12.1 FL (9.6-12.0); Neutrophils % 73.9 % (38.7-73.9); Platelet Count 71 T/CUMM (130-400); Red Blood Count 2.71 MC/CUMM (3.8-5.5); Red Cell Distribution Width 16.5 % (9.3-17.3); White Blood Count 14.9 T/CUMM (4-12)
[2019-08-27 06:08] LABS: Macrocytosis 1+; Ovalocytes Slight; Tear Drop Cells Slight
[2019-08-27 06:09] LABS: Hypochromasia Slight; Platelet Estimate Decreased
[2019-08-27 06:24] LABS: Calcium 8.5 MG/DL (8.5-10.1); Osmolality,Calculated 296.4 MOS/KG (273-304)
[2019-08-27] MEDS: METOPROLOL SUCCINATE XL 25 MG TABLET PO SCH (09:54)
[2019-08-27] MEDS: PANTOPRAZOLE 40 MG TABLET PO SCH ×2 (09:56→20:12)
[2019-08-27] MEDS: ASPIRIN EC 81 MG TABLET PO SCH (09:56)
[2019-08-27] MEDS: CLOPIDOGREL 75 MG TABLET PO SCH (09:57)
[2019-08-27] MEDS: ASCORBIC ACID 500 MG TABLET PO SCH ×2 (09:58→20:12)
[2019-08-27] MEDS: GABAPENTIN 600 MG TABLET PO SCH ×2 (09:58→20:12)
[2019-08-27] MEDS: SEVELAMER CARBONATE 800 MG TABLET PO SCH ×3 (10:01→17:43)
[2019-08-27] MEDS: INSULIN LISPRO 100 UNIT/ML SUBCUT SCH ×4 (10:05→20:14)
[2019-08-27] MEDS: MIDODRINE 5 MG TABLET PO SCH ×3 (10:10→20:12)
[2019-08-27] MEDS: INSULIN GLARGINE 100 UNIT/ML SUBCUT SCH ×2 (13:35→20:14)
[2019-08-27] MEDS: traMADol 50 MG TABLET PO PRN (17:09)
[2019-08-27] MEDS: oxyCODONE/ACETAMINOPHEN 5-325 MG TABLET PO PRN (21:11)
[2019-08-27] MEDS: ONDANSETRON 4 MG/2 ML VIAL IV PRN (21:18)
[2019-08-28 05:17] LABS: Basophils % 0.1 % (0.0-0.8); Eosinophils # 0.1 10*3/uL (0.0-0.87); Eosinophils % 0.6 % (0.00-10.9); Hematocrit 28.4 VOL% (42.0-52.0); Hemoglobin 9.4 GM/DL (14.0-18.0); Immature Granulocytes Absolute 0.22 #; Lymphocytes # 0.8 10*3/uL (1.4-4.0); Lymphocytes % 3.3 % (21.2-54.2); Mean Corpuscular HGB Conc 33.1 GM/DL (32-36); Mean Corpuscular Volume 98.6 FL (87-102); Mean Platelet Volume 12.4 FL (9.6-12.0); Monocytes % 9.1 % (1.7-12.7); Neutrophils % 85.9 % (38.7-73.9); Platelet Count 72 T/CUMM (130-400); Red Blood Count 2.88 MC/CUMM (3.8-5.5); White Blood Count 22.7 T/CUMM (4-12)
[2019-08-28 05:53] LABS: Calcium 8.1 MG/DL (8.5-10.1); Osmolality,Calculated 293.7 MOS/KG (273-304)
[2019-08-28 05:59] LABS: Anisocytosis 1+; Eosinophils 1 % (0-10); Lymphocytes 3 % (20-55); Platelet Estimate Decreased; Segmented Neutrophils 89 % (50-85); Total Cells Counted 100
[2019-08-28] MEDS: GABAPENTIN 600 MG TABLET PO SCH ×2 (08:40→21:16)
[2019-08-28] MEDS: ASCORBIC ACID 500 MG TABLET PO SCH ×2 (08:40→21:17)
[2019-08-28] MEDS: CLOPIDOGREL 75 MG TABLET PO SCH (08:40)
[2019-08-28] MEDS: ASPIRIN EC 81 MG TABLET PO SCH (08:45)
[2019-08-28] MEDS: PANTOPRAZOLE 40 MG TABLET PO SCH ×2 (08:45→21:17)
[2019-08-28] MEDS: METOPROLOL SUCCINATE XL 25 MG TABLET PO SCH (08:45)
[2019-08-28] MEDS: MIDODRINE 5 MG TABLET PO SCH ×3 (08:45→21:17)
[2019-08-28] MEDS: INSULIN LISPRO 100 UNIT/ML SUBCUT SCH ×4 (08:47→21:16)
[2019-08-28] MEDS: INSULIN GLARGINE 100 UNIT/ML SUBCUT SCH ×2 (08:57→21:08)
[2019-08-28] MEDS: SEVELAMER CARBONATE 800 MG TABLET PO SCH ×3 (09:02→17:48)
[2019-08-28] MEDS: oxyCODONE/ACETAMINOPHEN 5-325 MG TABLET PO PRN (09:56)
[2019-08-29] MEDS: diphenhydrAMINE CAP 25 MG CAPSULE PO PRN ×2 (03:16→09:15)
[2019-08-29 08:59] LABS: Basophils # 0.1 10*3/uL (0.0-0.2); Basophils % 0.3 % (0.0-0.8); Eosinophils # 0.2 10*3/uL (0.0-0.87); Eosinophils % 0.9 % (0.00-10.9); Hematocrit 30.1 VOL% (42.0-52.0); Hemoglobin 9.8 GM/DL (14.0-18.0); Immature Granulocytes % 0.8 %; Immature Granulocytes Absolute 0.19 #; Lymphocytes # 1.3 10*3/uL (1.4-4.0); Lymphocytes % 5.4 % (21.2-54.2); Mean Corpuscular HGB Conc 32.6 GM/DL (32-36); Mean Corpuscular Volume 100.3 FL (87-102); Mean Platelet Volume 11.9 FL (9.6-12.0); Monocytes % 8.8 % (1.7-12.7); Neutrophils % 83.8 % (38.7-73.9); Platelet Count 91 T/CUMM (130-400); Red Cell Distribution Width 15.9 % (9.3-17.3); White Blood Count 23.9 T/CUMM (4-12)
[2019-08-29] MEDS: SEVELAMER CARBONATE 800 MG TABLET PO SCH ×3 (09:13→19:31)
[2019-08-29] MEDS: MIDODRINE 5 MG TABLET PO SCH ×3 (09:15→20:32)
[2019-08-29] MEDS: ASPIRIN EC 81 MG TABLET PO SCH (09:15)
[2019-08-29] MEDS: GABAPENTIN 600 MG TABLET PO SCH ×2 (09:15→20:32)
[2019-08-29] MEDS: ASCORBIC ACID 500 MG TABLET PO SCH ×3 (09:15→20:32)
[2019-08-29] MEDS: PANTOPRAZOLE 40 MG TABLET PO SCH ×3 (09:15→20:32)
[2019-08-29] MEDS: CLOPIDOGREL 75 MG TABLET PO SCH (09:15)
[2019-08-29] MEDS: INSULIN LISPRO 100 UNIT/ML SUBCUT SCH ×4 (09:16→20:32)
[2019-08-29 09:19] LABS: Calcium 8.7 MG/DL (8.5-10.1); Osmolality,Calculated 288.1 MOS/KG (273-304)
[2019-08-29 09:30] LABS: Band Neutrophils 1 % (0-10); Lymphocytes 4 % (20-55); Platelet Estimate Decreased; Segmented Neutrophils 87 % (50-85); Total Cells Counted 100
[2019-08-29 09:31] LABS: Anisocytosis 1+; Macrocytosis 1+; Polychromasia Slight
[2019-08-29] MEDS: INSULIN GLARGINE 100 UNIT/ML SUBCUT SCH ×2 (10:34→20:33)
[2019-08-29] MEDS: METOPROLOL SUCCINATE XL 25 MG TABLET PO SCH (12:31)
[2019-08-29] MEDS: traMADol 50 MG TABLET PO PRN (14:06)
[2019-08-30 08:36] LABS: Basophils % 0.2 % (0.0-0.8); Eosinophils # 0.4 10*3/uL (0.0-0.87); Eosinophils % 2.2 % (0.00-10.9); Hematocrit 26.6 VOL% (42.0-52.0); Hemoglobin 8.7 GM/DL (14.0-18.0); Immature Granulocytes % 0.8 %; Immature Granulocytes Absolute 0.15 #; Lymphocytes # 0.9 10*3/uL (1.4-4.0); Lymphocytes % 4.5 % (21.2-54.2); Mean Corpuscular HGB Conc 32.7 GM/DL (32-36); Mean Corpuscular Volume 100.8 FL (87-102); Mean Platelet Volume 11.9 FL (9.6-12.0); Monocytes % 8.1 % (1.7-12.7); Neutrophils % 84.2 % (38.7-73.9); Red Blood Count 2.64 MC/CUMM (3.8-5.5); Red Cell Distribution Width 15.9 % (9.3-17.3); White Blood Count 19.2 T/CUMM (4-12)
[2019-08-30] MEDS: SEVELAMER CARBONATE 800 MG TABLET PO SCH ×4 (08:36→18:04)
[2019-08-30] MEDS: INSULIN GLARGINE 100 UNIT/ML SUBCUT SCH ×3 (08:37→22:28)
[2019-08-30 08:38] LABS: Platelet Count 92 T/CUMM (130-400)
[2019-08-30] MEDS: ASCORBIC ACID 500 MG TABLET PO SCH ×2 (08:38→21:02)
[2019-08-30 09:07] LABS: Calcium 8.5 MG/DL (8.5-10.1); Osmolality,Calculated 297.5 MOS/KG (273-304)
[2019-08-30] MEDS: traMADol 50 MG TABLET PO PRN ×2 (09:18→18:03)
[2019-08-30] MEDS: METOPROLOL SUCCINATE XL 25 MG TABLET PO SCH (09:18)
[2019-08-30] MEDS: ASPIRIN EC 81 MG TABLET PO SCH (09:18)
[2019-08-30] MEDS: INSULIN LISPRO 100 UNIT/ML SUBCUT SCH ×4 (09:18→22:28)
[2019-08-30] MEDS: MIDODRINE 5 MG TABLET PO SCH ×3 (09:18→21:02)
[2019-08-30] MEDS: GABAPENTIN 600 MG TABLET PO SCH ×2 (09:18→21:02)
[2019-08-30] MEDS: CLOPIDOGREL 75 MG TABLET PO SCH (09:18)
[2019-08-30] MEDS: PANTOPRAZOLE 40 MG TABLET PO SCH ×2 (09:18→21:01)
[2019-08-30 09:27] LABS: Eosinophils 4 % (0-10); Hypochromasia 1+; Lymphocytes 1 % (20-55); Platelet Estimate Decreased; Segmented Neutrophils 86 % (50-85); Total Cells Counted 100
[2019-08-30 09:28] LABS: Macrocytosis 1+
[2019-08-31 04:29] LABS: Basophils # 0.1 10*3/uL (0.0-0.2); Basophils % 0.3 % (0.0-0.8); Eosinophils # 0.6 10*3/uL (0.0-0.87); Eosinophils % 2.8 % (0.00-10.9); Hematocrit 25.8 VOL% (42.0-52.0); Hemoglobin 8.2 GM/DL (14.0-18.0); Immature Granulocytes % 0.7 %; Immature Granulocytes Absolute 0.14 #; Lymphocytes # 1.5 10*3/uL (1.4-4.0); Lymphocytes % 6.9 % (21.2-54.2); Mean Corpuscular HGB Conc 31.8 GM/DL (32-36); Mean Corpuscular Volume 101.6 FL (87-102); Mean Platelet Volume 11.9 FL (9.6-12.0); Monocytes % 8.6 % (1.7-12.7); Neutrophils % 80.7 % (38.7-73.9); Platelet Count 98 T/CUMM (130-400); Red Blood Count 2.54 MC/CUMM (3.8-5.5); Red Cell Distribution Width 16.1 % (9.3-17.3); White Blood Count 21.3 T/CUMM (4-12)
[2019-08-31] MEDS: traMADol 50 MG TABLET PO PRN ×2 (04:54→12:40)
[2019-08-31 05:03] LABS: Band Neutrophils 1 % (0-10); Eosinophils 3 % (0-10); Hypochromasia 1+; Lymphocytes 4 % (20-55); Macrocytosis Slight; Platelet Estimate Decreased; Segmented Neutrophils 81 % (50-85); Total Cells Counted 100
[2019-08-31] MEDS: SEVELAMER CARBONATE 800 MG TABLET PO SCH ×3 (09:44→18:06)
[2019-08-31] MEDS: ASPIRIN EC 81 MG TABLET PO SCH (09:44)
[2019-08-31] MEDS: PANTOPRAZOLE 40 MG TABLET PO SCH ×2 (09:45→21:20)
[2019-08-31] MEDS: GABAPENTIN 600 MG TABLET PO SCH ×2 (09:45→21:19)
[2019-08-31] MEDS: METOPROLOL SUCCINATE XL 25 MG TABLET PO SCH (09:45)
[2019-08-31] MEDS: ASCORBIC ACID 500 MG TABLET PO SCH ×2 (09:45→21:20)
[2019-08-31] MEDS: INSULIN GLARGINE 100 UNIT/ML SUBCUT SCH ×2 (09:45→21:30)
[2019-08-31] MEDS: CLOPIDOGREL 75 MG TABLET PO SCH (09:45)
[2019-08-31] MEDS: MIDODRINE 5 MG TABLET PO SCH ×3 (09:45→21:20)
[2019-08-31] MEDS: INSULIN LISPRO 100 UNIT/ML SUBCUT SCH ×4 (09:49→21:30)
[2019-08-31] MEDS: oxyCODONE/ACETAMINOPHEN 5-325 MG TABLET PO PRN (16:50)
[2019-08-31] MEDS: predniSONE 50 MG TABLET PO SCH (20:09)
[2019-09-01] MEDS: predniSONE 50 MG TABLET PO SCH ×2 (00:24→05:30)
[2019-09-01 04:38] LABS: Basophils # 0.1 10*3/uL (0.0-0.2); Basophils % 0.3 % (0.0-0.8); Eosinophils # 0.8 10*3/uL (0.0-0.87); Hematocrit 26.2 VOL% (42.0-52.0); Hemoglobin 8.3 GM/DL (14.0-18.0); Immature Granulocytes % 0.8 %; Immature Granulocytes Absolute 0.16 #; Lymphocytes # 1.3 10*3/uL (1.4-4.0); Mean Corpuscular HGB Conc 31.7 GM/DL (32-36); Mean Corpuscular Volume 103.1 FL (87-102); Monocytes % 8.2 % (1.7-12.7); Neutrophils % 79.7 % (38.7-73.9); Platelet Count 105 T/CUMM (130-400); Red Blood Count 2.54 MC/CUMM (3.8-5.5); Red Cell Distribution Width 16.1 % (9.3-17.3); White Blood Count 18.9 T/CUMM (4-12)
[2019-09-01 05:04] LABS: Calcium 9.1 MG/DL (8.5-10.1); Osmolality,Calculated 286.5 MOS/KG (273-304)
[2019-09-01] MEDS: traMADol 50 MG TABLET PO PRN ×3 (06:09→23:55)
[2019-09-01] MEDS: INSULIN LISPRO 100 UNIT/ML SUBCUT SCH ×4 (07:57→20:37)
[2019-09-01] MEDS ORDERED: MIDAZOLAM 2 MG/2 ML VIAL IV ONE (09:00)
[2019-09-01] MEDS ORDERED: fentaNYL 100 MCG/2 ML VIAL IV ONE (09:00)
[2019-09-01] MEDS: SEVELAMER CARBONATE 800 MG TABLET PO SCH ×3 (09:03→17:05)
[2019-09-01] MEDS ORDERED: HEPARIN/NACL 0.9% 2 UNITS/ML 2,000 ML IV ONE (09:38)
[2019-09-01] MEDS ORDERED: MIDAZOLAM 2 MG/2 ML VIAL ONE (10:04)
[2019-09-01] MEDS ORDERED: fentaNYL 100 MCG/2 ML VIAL ONE (10:04)
[2019-09-01] MEDS: INSULIN GLARGINE 100 UNIT/ML SUBCUT SCH ×2 (12:07→20:38)
[2019-09-01] MEDS: MIDODRINE 5 MG TABLET PO SCH ×3 (12:07→20:37)
[2019-09-01] MEDS: ASCORBIC ACID 500 MG TABLET PO SCH ×2 (12:08→20:36)
[2019-09-01] MEDS: PANTOPRAZOLE 40 MG TABLET PO SCH ×2 (12:10→20:36)
[2019-09-01] MEDS: METOPROLOL SUCCINATE XL 25 MG TABLET PO SCH (12:10)
[2019-09-01] MEDS: GABAPENTIN 600 MG TABLET PO SCH ×2 (12:10→20:36)
[2019-09-01] MEDS: ASPIRIN EC 81 MG TABLET PO SCH (12:10)
[2019-09-01] MEDS: CLOPIDOGREL 75 MG TABLET PO SCH (12:14)
[2019-09-01] MEDS: ONDANSETRON 4 MG/2 ML VIAL IV PRN (16:43)
[2019-09-01] MEDS: EZETIMIBE 10 MG TABLET PO SCH (20:38)
[2019-09-02] MEDS ORDERED: VANCOMYCIN INJ 1,000 MG in SODIUM CHLORIDE 0.9% 250 ML IV ONE (06:00)
[2019-09-02 07:26] LABS: Basophils % 0.3 % (0.0-0.8); Eosinophils # 0.6 10*3/uL (0.0-0.87); Eosinophils % 4.1 % (0.00-10.9); Hematocrit 24.3 VOL% (42.0-52.0); Hemoglobin 7.7 GM/DL (14.0-18.0); Immature Granulocytes % 0.8 %; Immature Granulocytes Absolute 0.12 #; Lymphocytes # 1.1 10*3/uL (1.4-4.0); Lymphocytes % 7.8 % (21.2-54.2); Mean Corpuscular HGB Conc 31.7 GM/DL (32-36); Mean Corpuscular Volume 102.1 FL (87-102); Mean Platelet Volume 11.5 FL (9.6-12.0); Monocytes % 8.5 % (1.7-12.7); Neutrophils % 78.5 % (38.7-73.9); Platelet Count 105 T/CUMM (130-400); Red Blood Count 2.38 MC/CUMM (3.8-5.5); Red Cell Distribution Width 16.2 % (9.3-17.3); White Blood Count 14.5 T/CUMM (4-12)
[2019-09-02] MEDS: INSULIN LISPRO 100 UNIT/ML SUBCUT SCH ×4 (07:28→22:43)
[2019-09-02] MEDS: SEVELAMER CARBONATE 800 MG TABLET PO SCH ×3 (07:28→17:51)
[2019-09-02 07:49] LABS: Calcium 8.9 MG/DL (8.5-10.1); Osmolality,Calculated 288.7 MOS/KG (273-304)
[2019-09-02] MEDS: INSULIN GLARGINE 100 UNIT/ML SUBCUT SCH ×2 (08:17→22:43)
[2019-09-02] MEDS: MIDODRINE 5 MG TABLET PO SCH ×3 (08:18→21:14)
[2019-09-02] MEDS: METOPROLOL SUCCINATE XL 25 MG TABLET PO SCH (08:18)
[2019-09-02] MEDS: ASCORBIC ACID 500 MG TABLET PO SCH ×2 (08:19→21:14)
[2019-09-02] MEDS: PANTOPRAZOLE 40 MG TABLET PO SCH ×2 (08:19→21:14)
[2019-09-02] MEDS: GABAPENTIN 600 MG TABLET PO SCH ×2 (08:19→21:14)
[2019-09-02] MEDS ORDERED: VANCOMYCIN 500 MG VIAL ONE (08:45)
[2019-09-02] MEDS ORDERED: LIDOCAINE 2% 5 ML VIAL ONE (10:47)
[2019-09-02] MEDS ORDERED: fentaNYL 100 MCG/2 ML VIAL ONE (10:47)
[2019-09-02] MEDS ORDERED: SEVOFLURANE 1 UNIT/15 MINUTE INH ONE (10:47)
[2019-09-02] MEDS ORDERED: SUCCINYLCHOLINE 200 MG/10 ML VIAL ONE (10:48)
[2019-09-02] MEDS ORDERED: ETOMIDATE 40 MG/20 ML VIAL IV ONE (10:48)
[2019-09-02] MEDS ORDERED: diphenhydrAMINE 50 MG/1 ML VIAL ONE (10:48)
[2019-09-02] MEDS ORDERED: ONDANSETRON 4 MG/2 ML VIAL ONE (10:48)
[2019-09-02] MEDS ORDERED: methylPREDNISolone SOD SUC 125 MG/2 ML VIAL ONE (10:48)
[2019-09-02] MEDS ORDERED: ROCURONIUM 100 MG/10 ML VIAL IV ONE (10:48)
[2019-09-02] MEDS ORDERED: ePHEDrine 50 MG/ML AMP ONE (10:48)
[2019-09-02] MEDS ORDERED: PHENYLEPHRINE 1 MG/10 ML SYRINGE IV ONE (10:48)
[2019-09-02] MEDS ORDERED: PHENYLEPHRINE 10 MG/1 ML VIAL IV ONE (10:48)
[2019-09-02] MEDS ORDERED: SODIUM CHLORIDE 0.9% 250 ML IV ONE (10:49)
[2019-09-02] MEDS ORDERED: HYDROmorphone 2 MG/1 ML VIAL IV PRN (12:04)
[2019-09-02] MEDS: ASPIRIN EC 81 MG TABLET PO SCH (13:11)
[2019-09-02] MEDS: CLOPIDOGREL 75 MG TABLET PO SCH (13:16)
[2019-09-02] MEDS: oxyCODONE/ACETAMINOPHEN 5-325 MG TABLET PO PRN ×2 (15:29→20:15)
[2019-09-02] MEDS ORDERED: GLUCAGON 1 MG VIAL IM PRN (17:03)
[2019-09-02] MEDS ORDERED: DEXTROSE 50% 25 GM/50 ML VIAL IV PRN (17:03)
[2019-09-02] MEDS ORDERED: SODIUM CHLORIDE 0.9% 1,000 ML IV PRN ×3 (17:11→17:15)
[2019-09-02] MEDS ORDERED: FUROSEMIDE 40 MG/4 ML VIAL IV ONE (17:20)
[2019-09-02] MEDS: EZETIMIBE 10 MG TABLET PO SCH (21:14)
[2019-09-03] MEDS: HYDROmorphone 2 MG/1 ML VIAL IV PRN ×2 (00:05→05:52)
[2019-09-03] MEDS ORDERED: FUROSEMIDE 20 MG/2 ML VIAL ONE (02:52)
[2019-09-03 05:01] LABS: Basophils % 0.1 % (0.0-0.8); Hematocrit 28.8 VOL% (42.0-52.0); Hemoglobin 9.1 GM/DL (14.0-18.0); Immature Granulocytes % 0.9 %; Immature Granulocytes Absolute 0.08 #; Lymphocytes # 0.4 10*3/uL (1.4-4.0); Lymphocytes % 3.9 % (21.2-54.2); Mean Corpuscular HGB Conc 31.6 GM/DL (32-36); Mean Platelet Volume 11.4 FL (9.6-12.0); Monocytes % 4.4 % (1.7-12.7); Neutrophils % 90.7 % (38.7-73.9); Platelet Count 105 T/CUMM (130-400); Red Blood Count 2.88 MC/CUMM (3.8-5.5); Red Cell Distribution Width 17.2 % (9.3-17.3); White Blood Count 9.4 T/CUMM (4-12)
[2019-09-03 05:30] LABS: Albumin 1.9 G/DL (3.4-5.0); Bilirubin,Total 0.6 MG/DL (0.2-1.0); Calcium 9.7 MG/DL (8.5-10.1); Osmolality,Calculated 290.8 MOS/KG (273-304); Total Protein 6.7 G/DL (6.4-8.3)
[2019-09-03 05:31] LABS: Hypochromasia 1+; Lymphocytes 4 % (20-55); Segmented Neutrophils 93 % (50-85); Total Cells Counted 100
[2019-09-03] MEDS: INSULIN GLARGINE 100 UNIT/ML SUBCUT SCH ×2 (08:22→20:24)
[2019-09-03] MEDS: INSULIN LISPRO 100 UNIT/ML SUBCUT SCH ×4 (08:24→20:23)
[2019-09-03] MEDS: GABAPENTIN 600 MG TABLET PO SCH ×2 (08:25→20:25)
[2019-09-03] MEDS: MIDODRINE 5 MG TABLET PO SCH ×3 (08:25→20:27)
[2019-09-03] MEDS: METOPROLOL SUCCINATE XL 25 MG TABLET PO SCH (08:25)
[2019-09-03] MEDS: SEVELAMER CARBONATE 800 MG TABLET PO SCH ×3 (08:25→17:28)
[2019-09-03] MEDS: ASCORBIC ACID 500 MG TABLET PO SCH ×2 (08:25→20:24)
[2019-09-03] MEDS: PANTOPRAZOLE 40 MG TABLET PO SCH ×2 (08:25→20:25)
[2019-09-03] MEDS: ASPIRIN EC 81 MG TABLET PO SCH (08:25)
[2019-09-03] MEDS: oxyCODONE/ACETAMINOPHEN 5-325 MG TABLET PO PRN ×4 (09:02→23:48)
[2019-09-03] MEDS: EZETIMIBE 10 MG TABLET PO SCH (20:24)
[2019-09-04] MEDS: oxyCODONE/ACETAMINOPHEN 5-325 MG TABLET PO PRN ×4 (03:50→23:38)
[2019-09-04 05:01] LABS: Eosinophils # 0.1 10*3/uL (0.0-0.87); Eosinophils % 1.3 % (0.00-10.9); Hematocrit 27.3 VOL% (42.0-52.0); Hemoglobin 8.9 GM/DL (14.0-18.0); Immature Granulocytes % 0.7 %; Immature Granulocytes Absolute 0.07 #; Lymphocytes # 0.9 10*3/uL (1.4-4.0); Lymphocytes % 9.1 % (21.2-54.2); Mean Corpuscular HGB Conc 32.6 GM/DL (32-36); Mean Corpuscular Volume 98.2 FL (87-102); Mean Platelet Volume 11.5 FL (9.6-12.0); Neutrophils % 83.9 % (38.7-73.9); Platelet Count 125 T/CUMM (130-400); Red Blood Count 2.78 MC/CUMM (3.8-5.5); Red Cell Distribution Width 17.2 % (9.3-17.3); White Blood Count 10.1 T/CUMM (4-12)
[2019-09-04] MEDS: HYDROmorphone 2 MG/1 ML VIAL IV PRN ×3 (05:40→14:41)
[2019-09-04 05:48] LABS: Calcium 8.9 MG/DL (8.5-10.1); Osmolality,Calculated 288.7 MOS/KG (273-304)
[2019-09-04] MEDS: INSULIN GLARGINE 100 UNIT/ML SUBCUT SCH ×2 (08:26→21:49)
[2019-09-04] MEDS: GABAPENTIN 600 MG TABLET PO SCH ×2 (08:26→20:30)
[2019-09-04] MEDS: MIDODRINE 5 MG TABLET PO SCH ×3 (08:26→20:31)
[2019-09-04] MEDS: SEVELAMER CARBONATE 800 MG TABLET PO SCH ×3 (08:26→17:19)
[2019-09-04] MEDS: ASCORBIC ACID 500 MG TABLET PO SCH ×2 (08:26→20:30)
[2019-09-04] MEDS: PANTOPRAZOLE 40 MG TABLET PO SCH ×2 (08:26→20:30)
[2019-09-04] MEDS: ASPIRIN EC 81 MG TABLET PO SCH (08:26)
[2019-09-04] MEDS: METOPROLOL SUCCINATE XL 25 MG TABLET PO SCH (08:26)
[2019-09-04] MEDS: INSULIN LISPRO 100 UNIT/ML SUBCUT SCH ×4 (08:27→21:49)
[2019-09-04] MEDS: EZETIMIBE 10 MG TABLET PO SCH (20:31)
[2019-09-05] MEDS: oxyCODONE/ACETAMINOPHEN 5-325 MG TABLET PO PRN ×5 (04:41→22:33)
[2019-09-05 05:23] LABS: Basophils % 0.2 % (0.0-0.8); Eosinophils # 0.5 10*3/uL (0.0-0.87); Eosinophils % 5.5 % (0.00-10.9); Hematocrit 28.5 VOL% (42.0-52.0); Hemoglobin 9.1 GM/DL (14.0-18.0); Immature Granulocytes % 0.7 %; Immature Granulocytes Absolute 0.07 #; Lymphocytes # 0.9 10*3/uL (1.4-4.0); Lymphocytes % 9.2 % (21.2-54.2); Mean Corpuscular HGB Conc 31.9 GM/DL (32-36); Mean Corpuscular Volume 98.6 FL (87-102); Mean Platelet Volume 11.6 FL (9.6-12.0); Monocytes % 7.5 % (1.7-12.7); Neutrophils % 76.9 % (38.7-73.9); Platelet Count 131 T/CUMM (130-400); Red Blood Count 2.89 MC/CUMM (3.8-5.5); Red Cell Distribution Width 16.6 % (9.3-17.3); White Blood Count 9.9 T/CUMM (4-12)
[2019-09-05 05:39] LABS: Calcium 8.6 MG/DL (8.5-10.1); Osmolality,Calculated 281.9 MOS/KG (273-304)
[2019-09-05] MEDS: METOPROLOL SUCCINATE XL 25 MG TABLET PO SCH (08:20)
[2019-09-05] MEDS: GABAPENTIN 600 MG TABLET PO SCH ×2 (08:20→21:15)
[2019-09-05] MEDS: PANTOPRAZOLE 40 MG TABLET PO SCH ×2 (08:20→21:15)
[2019-09-05] MEDS: MIDODRINE 5 MG TABLET PO SCH ×3 (08:20→21:30)
[2019-09-05] MEDS: ASPIRIN EC 81 MG TABLET PO SCH (08:20)
[2019-09-05] MEDS: INSULIN LISPRO 100 UNIT/ML SUBCUT SCH ×4 (08:21→21:29)
[2019-09-05] MEDS: SEVELAMER CARBONATE 800 MG TABLET PO SCH ×3 (08:21→18:09)
[2019-09-05] MEDS: INSULIN GLARGINE 100 UNIT/ML SUBCUT SCH ×2 (08:21→21:15)
[2019-09-05] MEDS: ASCORBIC ACID 500 MG TABLET PO SCH ×2 (08:22→21:15)
[2019-09-05] MEDS: EZETIMIBE 10 MG TABLET PO SCH (21:15)
[2019-09-06 05:17] LABS: Basophils % 0.3 % (0.0-0.8); Eosinophils # 0.7 10*3/uL (0.0-0.87); Eosinophils % 6.3 % (0.00-10.9); Hematocrit 29.4 VOL% (42.0-52.0); Hemoglobin 9.3 GM/DL (14.0-18.0); Immature Granulocytes % 0.6 %; Immature Granulocytes Absolute 0.07 #; Lymphocytes # 1.1 10*3/uL (1.4-4.0); Lymphocytes % 9.6 % (21.2-54.2); Mean Corpuscular HGB Conc 31.6 GM/DL (32-36); Mean Corpuscular Volume 100.3 FL (87-102); Mean Platelet Volume 11.2 FL (9.6-12.0); Monocytes % 6.7 % (1.7-12.7); Neutrophils % 76.5 % (38.7-73.9); Platelet Count 151 T/CUMM (130-400); Red Blood Count 2.93 MC/CUMM (3.8-5.5); Red Cell Distribution Width 15.9 % (9.3-17.3); White Blood Count 11.1 T/CUMM (4-12)
[2019-09-06 05:28] LABS: Calcium 8.5 MG/DL (8.5-10.1); Osmolality,Calculated 284.1 MOS/KG (273-304)
[2019-09-06] MEDS: oxyCODONE/ACETAMINOPHEN 5-325 MG TABLET PO PRN ×2 (06:36→21:20)
[2019-09-06] MEDS: INSULIN LISPRO 100 UNIT/ML SUBCUT SCH ×4 (07:40→21:26)
[2019-09-06] MEDS: GABAPENTIN 600 MG TABLET PO SCH ×2 (09:05→21:18)
[2019-09-06] MEDS: ASCORBIC ACID 500 MG TABLET PO SCH ×2 (09:06→21:18)
[2019-09-06] MEDS: PANTOPRAZOLE 40 MG TABLET PO SCH ×2 (09:06→21:18)
[2019-09-06] MEDS: METOPROLOL SUCCINATE XL 25 MG TABLET PO SCH (09:06)
[2019-09-06] MEDS: MIDODRINE 5 MG TABLET PO SCH ×3 (09:06→21:18)
[2019-09-06] MEDS: SEVELAMER CARBONATE 800 MG TABLET PO SCH ×3 (09:06→16:15)
[2019-09-06] MEDS: INSULIN GLARGINE 100 UNIT/ML SUBCUT SCH ×2 (09:06→21:25)
[2019-09-06] MEDS: ASPIRIN EC 81 MG TABLET PO SCH (09:06)
[2019-09-06] MEDS ORDERED: SODIUM PHOSPHATE ENEMA 133 ML BOTTLE RECTAL PRN (09:43)
[2019-09-06] MEDS ORDERED: SODIUM PHOSPHATE ENEMA 133 ML BOTTLE RECTAL ONE (09:43)
[2019-09-06] MEDS: EZETIMIBE 10 MG TABLET PO SCH (21:18)
[2019-09-07] MEDS: INSULIN LISPRO 100 UNIT/ML SUBCUT SCH ×2 (08:01→13:15)
[2019-09-07] MEDS: PANTOPRAZOLE 40 MG TABLET PO SCH (08:02)
[2019-09-07] MEDS: SEVELAMER CARBONATE 800 MG TABLET PO SCH ×2 (08:02→13:15)
[2019-09-07] MEDS: INSULIN GLARGINE 100 UNIT/ML SUBCUT SCH (08:02)
[2019-09-07] MEDS: ASCORBIC ACID 500 MG TABLET PO SCH (08:02)
[2019-09-07] MEDS: GABAPENTIN 600 MG TABLET PO SCH (08:02)
[2019-09-07] MEDS: MIDODRINE 5 MG TABLET PO SCH ×2 (08:02→14:23)
[2019-09-07] MEDS: ASPIRIN EC 81 MG TABLET PO SCH (08:03)
[2019-09-07] MEDS: METOPROLOL SUCCINATE XL 25 MG TABLET PO SCH (08:03)
[2019-09-07 15:16] VITALS: BP 128/68
== END 2019-09-07 15:18 | disposition home health service (06) | DRG 239 ==
LOC: N.CC 11:03 → SUATTDRO 11:03 → N.ICU 16:57 → N.TELEN 19:54 → N.ICU 08-23 12:26 → N.TELES 08-30 17:14 → N.CC 09-02 11:50 → N.5E 09-05 12:17
PROVIDERS: ADMIT Internal Medicine; ATTEND Family Medicine